=== PATIENT | female | born 1940 | race Caucasian/White ===

== ENCOUNTER 2016-10-09 13:07 | Inpatient (IN) | payer MEDICARE ==
[~2016-10-09] VITALS: Ht 152.4 cm; Wt 73.9 kg
--- NOTE | 2016-10-09 13:25 | ERPDOC ---
Departure Disposition Decision Date: Oct 09, 2016 Disposition Decision Time: 16:13 Disposition: 02 TO [facility] Impression Impression Impression: Primary Impression: UTI (urinary tract infection) Urinary tract infection type: acute cystitis Hematuria presence: without hematuria Qualified Codes: N30.00 - Acute cystitis without hematuria Severity: Moderate Condition: Stable Seen By: Physician only Problems/Meds/Labs Reviewed?: Yes Medications reviewed and manag: Yes Follow up care ordered?: Yes Mental Status: Alert, Oriented Scripts Aspirin *EC* (Aspirin EC) 81 Mg Tablet. 81 MG PO DAILY for 30 Days, #30 TAB Prov: LEELA ANDRADE V HAND COKE DRAWER 10/11/16 HPI - General Medical General Chief Complaint: Acute Medical Problem Stated Complaint: POSS STROKE Time Seen by Provider: 14:08 Source: patient Exam Limitations: clinical condition HPI - General Medical Initial Comments Patient is a 76-year-old female very poor historian. Patient brought to the ER by private vehicle. Patient original story was she fell 2 days ago and has been laying on the floor in her house scooting around since then. When asked again patient states that she fell twice yesterday and twice this morning was helped up by EMS and refused transport. Patient having difficulty walking so the maintenance been was called to put her in a wheelchair and fixture breakfast. Patient very unclear patient covered in feces and urine. Allergies: Coded Allergies: cephalexin (Verified Allergy, Unknown, RASH, 10/14/16) Past History Past Medical History Metabolic: hypothyroidism Neurological: CVA Psychological: anxiety, depression Surgical History Reproductive/: hysterectomy Social History Smoking Status: Never smoker Substance Use Type: does not use Alcohol Intake: none Review of Systems Constitutional Constitutional: weakness, DENIES: chills, dizziness, fever Eyes Vision: DENIES: double vision, loss of visual noguera ENMT Sinuses: DENIES: congestion, rhinorrhea Teeth: DENIES: pain Cardiovascular Cardiac: DENIES: chest pain, dyspnea on exertion Pulmonary Respiratory: DENIES: cough, dyspnea, sputum, tachypnea GI Upper Abdomen: DENIES: nausea, pain, vomiting Lower Abdomen: diarrhea, DENIES: constipation, pain General: DENIES: urgency Musculoskeletal General: DENIES: cramps, pain, weakness Integumentary Skin: DENIES: color change, itching, rash Endocrine Endocrine: DENIES: heat/cold intolerance Hematologic/Lymphatic Hematologic/Lymphatic: DENIES: anemia Physical Exam General General Nourishment: well nourished, well developed General Body Habitus: well groomed Vitals and Pain Weight: Kilograms: Height (feet): Height (inches): Triage Pain Scale: RN VS reviewed by Provider: Yes Eyes (brief) Eyes Brief: found: EOMI ENMT (brief) ENMT Brief: FOUND: mucosa moist, normal dentition, NOT FOUND: nasal erythema, pharnyx erythema, tonsillar deviation Neck (brief) Neck: NOT FOUND: adenopathy, spasm, tenderness Respiratory (brief) Respiratory: FOUND: clear all noguera, equal bilaterally, NOT FOUND: rales, wheezes Cardiovascular (brief) Cardiac: FOUND: regular rate, regular rhythm Capillary Refill: <2 sec Abdomen (brief) Abdominal Brief: FOUND: bowel normo active x4, soft, NOT FOUND: tender Lymphatic (brief) Lymphatic Brief: NOT FOUND: adenopathy Musculoskeletal (brief) Musculoskeletal Brief: NOT FOUND: spasm, tenderness Integumentary (brief) Integumentary Brief: FOUND: dry, pink, warm, NOT FOUND: rash Neurologic (brief) Neurological Brief: FOUND: CN w/o gross def to obs, motor-no gross deficits, sensory-no gross deficits Differential Diagnoses Considering: Acute AR, CVA, Hypo/Hyperglycemia, Hypo/Hyperkalemia, Hypo/ Hypernatremia, Medication Effect, Metabolic, Pneumonia, Poisoning/Accidental OD , Psychosis, Pulmonary Embolus, Seizure, TIA, UTI Progress Results/Orders Orders Procedure Category Date Status Time Iv Lock (Ed Only) EDM 10/09/16 Transmitted 13:42 Iv Lock (Ed Only) EDM 10/09/16 Transmitted 14:08 Cbc W/Auto LAB 10/09/16 Complete Diff-Reflex Manual 14:08 Cmp - Comprehensive LAB 10/09/16 Complete Metabolic 14:08 Troponin I W LAB 10/09/16 Complete Hemolysis Index 14:08 Probnp LAB 10/09/16 Complete 14:08 Ck - Cpk LAB 10/09/16 Complete 14:08 Normal Saline (Normal PHA 10/09/16 Complete Saline Iv) 14:15 Ct Head W/O Contrast CT 10/09/16 Resulted 14:35 UA, LAB 10/09/16 Complete Dip&Micro(Complete) & 14:48 Lactate - Lactic Acid LAB 10/09/16 Complete 15:03 Procalcitonin LAB 10/09/16 Complete 15:03 Blood Culture DERRICK 10/09/16 Complete 15:03 Lactate - Lactic Acid LAB 10/09/16 Complete 19:33 Ceftriaxone I.V. (Er PHA 10/09/16 Complete Use Only) (Rocephin 15:15 Urine Culture DERRICK 10/09/[address] 15:[address] In Facility: ED ADM 10/09/16 Transmitted 16:21 Lab Results Laboratory Tests Test 10/09/16 13:18 10/09/16 13:56 10/09/16 14:48 10/09/16 15:30 Glucometer 98mg/dL White Blood Count 18.6T/MM3 Red Blood Count 4.80M/MM3 Hemoglobin 14.9GM/DL Hematocrit 46.0% Mean Corpuscular Volume 95.8UM3 Mean Corpuscular Hemoglobin 31.0UUG Mean Corpuscular Hemoglobin Concent 32.4GM/DL RDW Standard Deviation 49.1FL Platelet Count 288T/MM3 Mean Platelet Volume 9.7UM3 Immature Granulocyte % (Auto) % Neutrophils (%) (Auto) % Lymphocytes (%) (Auto) % Monocytes (%) (Auto) % Eosinophils (%) (Auto) % Basophils (%) (Auto) % Absolute Immature Granulocyte (auto T/MM3 Absolute Neutrophils (auto) T/MM3 Absolute Lymphocytes (auto) T/MM3 Absolute Monocytes (auto) T/MM3 Absolute Eosinophils (auto) T/MM3 Absolute Basophils (auto) T/MM3 Neutrophils % (Manual) 74.0% Band Neutrophils % 3.0% Lymphocytes % (Manual) 13.0% Monocytes % (Manual) 8.0% Eosinophils % (Manual) 1.0% Basophils % (Manual) 1.0% Absolute Neutrophils (Manual) 13.8T/MM3 Band Neutrophils # 0.6T/MM3 Lymphocytes # (Manual) 2.4T/MM3 Monocytes # (Manual) 1.5T/MM3 Eosinophils # (Manual) 0.2T/MM3 Basophils # (Manual) 0.2T/MM3 Red Cell Morphology Comment Normal Turbidity < 20 Sodium Level 150MEQ/L Potassium Level 3.7MEQ/L Chloride Level 110MEQ/L Carbon Dioxide Level 23MEQ/L Anion Gap 17MEQ/L Blood Urea Nitrogen 49.0MG/DL Creatinine 1.3MG/DL Glomerular Filtration Rate Calc 40 BUN/Creatinine Ratio 38RATIO Glucose Level 108MG/DL Calculated Osmolality 302MOSM/KG Calcium Level 9.4MG/DL Total Bilirubin 1.00MG/DL Icterus Index < 2 Aspartate Amino Transf (AST/SGOT) 47U/L Alanine Aminotransferase (ALT/SGPT) 44U/L Alkaline Phosphatase 117U/L Total Creatine Kinase 613U/L Troponin I 0.012ng/ml SG-Btv-I-Type Natriuretic Peptide 939PG/ML Total Protein 8.0G/DL Albumin 4.3G/DL Globulin 3.7G/DL Albumin/Globulin Ratio 1.2RATIO Chemistry Specimen Hemolysis < 15 Urine Collection Type Voided-not cc-midstr Urine Color Yellow Urine Turbidity Cloudy Urine pH 5.0 Urine Specific [place] >=1.030 Urine Protein Trace Urine Glucose (UA) Negative Urine Ketones Trace Urine Blood Trace-intact Urine Nitrite Positive Urine Bilirubin Negative Urine Urobilinogen 1.0EU/DL Urine Leukocyte Esterase Negative Urine RBC 0-1/HPF Urine WBC 1-3/HPF Urine Squamous Epithelial Cells 20-50 Urine Amorphous Phosphates Many Urine Bacteria 2+ Urine Hyaline Casts 1-3/LPF Urine Culture Indicated Cult reflexed &setup Plasma Lactate 2.3MMOL/L Procalcitonin 0.05NG/ML Thyroid Stimulating Hormone (TSH) 16.10MIU/L Medications Current ED Medications Sodium Chloride 1,000 ml @ 999 mls/hr Q1H1M ONCE IV Last administered on 14:20; Start 10/09/16 at 14:15; Stop 10/09/16 at 15:15; Status DC Ceftriaxone Sodium/Sodium Chloride (Rocephin/NS) 100 ml @ 100 mls/hr O ONCE IV Last administered on 10/09/16 15:43; Start 10/09/16 at 15:15; Stop at 16:14; Status DC CT CT : CT: Head no contrast Interpretation: Abnormal, Reviewed Written Report (chronic changes shunt in place no acute findings) SHELDON BOURGEOIS MD Oct 09, 2016 13:25
[2016-10-09] MEDS ORDERED: NO ROUTINE MEDS (13:40)
[2016-10-09] MEDS ORDERED: IBUP-1724 PO (13:40)
--- NOTE | 2016-10-09 14:02 | NUR ---
DR DR BOURGEOIS AT BEDSIDE.
[2016-10-09] MEDS ORDERED: NORMAL SALINE 1,000 ML IV ONE (14:15)
[2016-10-09 14:21] LABS: HGB - HEMOGLOBIN 14.9 GM/DL (12-16); MEAN CORPUSCULAR HGB CONC(MCHC 32.4 GM/DL (31-37); MEAN CORPUSCULAR VOLUME 95.8 UM3 (80-100); MEAN PLATELET VOLUME 9.7 UM3 (9.4-12.4); WBC - WHITE BLOOD COUNT 18.6 T/MM3 (4.5-11.0)
[2016-10-09 14:31] LABS: ALBUMIN 4.3 G/DL (3.5-5.0); ALBUMIN/GLOBULIN RATIO 1.2 RATIO (1.1-2.2); ALKALINE PHOSPHATASE 117 U/L (38-126); ALT (SGPT) 44 U/L (9-52); ANION GAP 17 MEQ/L (5-15); AST (SGOT) 47 U/L (14-36); BUN/CREATININE RATIO 38 RATIO (6-26); CALCIUM 9.4 MG/DL (8.4-10.2); CHLORIDE 110 MEQ/L (98-107); CO2 - CARBON DIOXIDE 23 MEQ/L (22-30); CREATININE 1.3 MG/DL (0.7-1.2); GLOMERULAR FILTRATION RATE 40; GLUCOSE 108 MG/DL (65-110); POTASSIUM 3.7 MEQ/L (3.6-5); SODIUM 150 MEQ/L (134-144)
[2016-10-09 14:39] LABS: PROBNP 939 PG/ML (0-175)
[2016-10-09 14:44] LABS: BAND NEUTROPHILS # 0.6 T/MM3; BASOPHILS # (MANUAL) 0.2 T/MM3 (0-0.2); EOSINOPHILS # (MANUAL) 0.2 T/MM3 (0-0.5); LYMPHOCYTES # (MANUAL) 2.4 T/MM3 (1-4.8); MONOCYTES # (MANUAL) 1.5 T/MM3 (0-0.8); NEUTROPHILS #(MANUAL)-ABSOLUTE 13.8 T/MM3 (1.8-7.7); TOTAL CELLS COUNTED 100 %
--- NOTE | 2016-10-09 14:44 | NUR ---
CT PT TO CT VIA RNEY.
--- NOTE | 2016-10-09 14:52 | NUR ---
CT PT RETURNED.
[2016-10-09 14:56] LABS: BLOOD, URINE TRACE-INTACT (NEGATIVE); COLOR,URINE YELLOW (YELLOW); LEUKOCYTE ESTERASE ,URINE NEGATIVE (NEGATIVE); NITRITE,URINE POSITIVE (NEGATIVE)
--- NOTE | 2016-10-09 15:00 | NUR ---
SEPSIS DISCUSSED STATUS WITH DR BOURGEOIS. DR BOURGEOIS NOTED AT THIS TIME THE POSSIBILITY OF SEPSIS.
--- NOTE | 2016-10-09 15:00 | DI ---
Indication: ITS.REASON: 76-year-old female with multiple falls, question etiology PROCEDURE: CT HEAD W/O CONTRAST: Encounter: Initial Comparison: None Technique: Axial CT images through the head were performed without contrast. Iterative Reconstruction dose reducing technique was utilized. FINDINGS: The ventricles are of normal size, shape, and contour for the patient's age. There is a ventriculoperitoneal shunt entering through the left frontal region with the shunt catheter passing across the midline into the medial aspect of the right lateral ventricle, frontal horn. 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 There are scattered areas of low attenuation in the white matter which most likely represent changes from chronic microvascular ischemia. There is evidence of prior ischemic insult involving the left inferior cerebellar hemisphere. The visualized paranasal sinuses are clear. IMPRESSION: 1. Negative for acute intracranial process. 2. Ventricular shunt in place. 3. Evidence of prior right craniotomy. 4. Cerebral and cerebellar atrophy and chronic microvascular ischemia. .
[2016-10-09 15:03] LABS: SQUAMOUS EPITHELIAL CELL,UR 20-50
[2016-10-09 15:05] LABS: BACTERIA,URINE 2+ (NEGATIVE); RBC,URINE 0-1 /HPF (0-3)
--- NOTE | 2016-10-09 15:09 | NUR ---
VEHICLE SALES PROFESSIONAL IN ROOM FOR VENIPUNCTURE.
[2016-10-09] MEDS ORDERED: CEFTRIAXONE I.V. (ER USE ONLY) 1 G in NORMAL SALINE 100 ML IV ONE (15:15)
[2016-10-09 15:21] LABS: CK - CPK 613 U/L (30-135)
--- NOTE | 2016-10-09 16:30 | NUR ---
REPORT GIVEN TO [facility] RN MEDICAL UNIT.
--- NOTE | 2016-10-09 16:33 | NUR ---
STEVEN ANDRADE APRN AT BEDSIDE.
[2016-10-09 16:40] VITALS: PULSE 78; RESP 18
--- NOTE | 2016-10-09 16:40 | NUR ---
Admit Pt transferred at this time to bed X2 assistance and slide board. VS stable on RA. Pt denies pain and nausea at this time. Side rails up X2, call light within reach, bed alarm on. Will continue to monitor.
--- NOTE | 2016-10-09 16:40 | NUR ---
ADMIT PT TRANSFERRED TO MEDICAL UNIT VIA GURNEY. PERSONAL BELONGINGS ACCOMPANY.
[2016-10-09 16:48] VITALS: BP 154/75; PULSE 78; RESP 18; TEMP 98.4; O2SAT 92
[2016-10-09 16:51] VITALS: Ht 152.4 cm; Wt 73.9 kg
--- NOTE | 2016-10-09 16:58 | HPPDOC ---
LEELA ANDRADE V LADLE LINER 10/09/16 1644: HPI - Adult Date DATE: 10/09/16 TIME: 16:39 General Chief Complaint: UTI, leukocytosis, sepsis History of Present Illness Patient is a 76-year-old female who currently resides independently in the housing facility in [place], [place]. Patient is a very poor historian and multiple stories given while in the emergency room. However, patient reports that she fell 4 times yesterday. She also reports that EMS came and helped assist her up. However, she continued to have significant weakness. Today she was crawling around on the floor and finally EMS was called and transported patient to [facility] emergency room for further evaluation and treatment. She was found have an elevated white count at 18.6, hemoglobin 14.9, hematocrit 46, pleuritic count 288, neutrophils 74%. Sodium was found to be elevated at 150, potassium 3.7, BUN 49, creatinine 1.3, glucose 108, Weight osmology 302. AST is slightly elevated at 47, CK elevated at 613. Troponin was - 0.012, proBNP 939. Venous lactate was found to be elevated at 2.3, pro calcitonin 0.05. A urinalysis is obtained showing trace ketones, trace blood, positive nitrates with 2+ bacteria. A CT scan of the brain was of pain showing no acute intracranial process. However, history of ventricular shunt with evidence of prior right craniotomy. Given leukocytosis, UTI and weakness. The hospitalist services were contacted and accepted patient for outpatient measurement further evaluation and treatment. Harper is seen on initial examination. She is alert however is a very poor historian. She verifies that she has not seen a medical provider in "years". Past Medical History Past Medical History "Brain aneurysm"- Ventricular shunt present on CT Hypertension Hypothyroidism Patient verbalizes that she has not seen a doctor in "years" and that she does not have any current health problems Surgical History Patient's Surgical History: Evidence of prior right craniotomy with ventricular shunt Current Medications Home Meds Reported Medications Ibuprofen (Ibuprofen) 200 Mg Tablet, 400 MG PO Q4H Y for PAIN 10/09/16 [No Routine Meds] No Conflict Check 10/09/16 Allergies: Coded Allergies: No Known Allergies (Unverified , 10/09/16) Family History Family History: unknown by chelsi Social History Smoking Status: Former smoker Substance Use Type: does not use Substance last used: prior to arrival Alcohol Intake: none Housing: house (independently in [place], [place]) Social History Comments No PCP Review of Systems Constitutional: REPORTS: weakness ENMT Mouth/Throat: DENIES: change in voice Pulmonary Respiratory: DENIES: cough GI Upper Abdomen: DENIES: pain Lower Abdomen: DENIES: blood in stool, constipation Musculoskeletal General: pain (abrasion to right elbow, ecchymosis to left side (yellow in color)) All Other Systems All Other Systems: Reviewed Physical Exam General General Nourishment: well nourished, well developed Vital Signs Vital Signs Date Time Temp Pulse Resp B/P Pulse Ox O2 Delivery O2 Flow Rate FiO2 10/09/16 15:30 68 14 156/76 93 Room Air 10/09/16 13:10 97.5 Height (Feet): 5 Height (Inches): 0 Eyes Brief: FOUND: EOMI ENMT Brief: FOUND: mucosa moist, normal dentition, NOT FOUND: pharnyx erythema Neck Brief: FOUND: midline, NOT FOUND: adenopathy, carotid bruits, tracheal deviation Respiratory Brief: FOUND: clear all noguera, equal bilaterally, NOT FOUND: wheezes Cardiovascular (brief) Cardiac Brief: FOUND: regular rate, regular rhythm, NOT FOUND: murmur, pedal edema Capillary Refill: <2 sec Abdomen (brief) Abdominal Brief: FOUND: BS normo active x4, soft, NOT FOUND: distended, tender Lymphatic (brief) Lymphatic Brief: NOT FOUND: adenopathy Musculoskeletal (brief) Musculoskeletal Brief: NOT FOUND: tenderness Integumentary (brief) Integumentary Brief: FOUND: dry, pink, warm Comments Poor nail care. Toenails are long and unkept Neurologic (brief) Neurological Brief: FOUND: cranial 2-12 intact Neurologic RN Documented GCS Eye Opening: (4)Spontaneous Verbal: (5)Oriented Motor: (6)Obeys Commands Total: Psychiatric (brief) FOUND: alert, attentive, normal affect, oriented Laboratory Laboratory Tests Test 10/09/16 13:18 10/09/16 13:56 10/09/16 14:48 10/09/16 15:30 Glucometer 98mg/dL White Blood Count 18.6T/MM3 Red Blood Count 4.80M/MM3 Hemoglobin 14.9GM/DL Hematocrit 46.0% Mean Corpuscular Volume 95.8UM3 Mean Corpuscular Hemoglobin 31.0UUG Mean Corpuscular Hemoglobin Concent 32.4GM/DL RDW Standard Deviation 49.1FL Platelet Count 288T/MM3 Mean Platelet Volume 9.7UM3 Immature Granulocyte % (Auto) % Neutrophils (%) (Auto) % Lymphocytes (%) (Auto) % Monocytes (%) (Auto) % Eosinophils (%) (Auto) % Basophils (%) (Auto) % Absolute Immature Granulocyte (auto T/MM3 Absolute Neutrophils (auto) T/MM3 Absolute Lymphocytes (auto) T/MM3 Absolute Monocytes (auto) T/MM3 Absolute Eosinophils (auto) T/MM3 Absolute Basophils (auto) T/MM3 Neutrophils % (Manual) 74.0% Band Neutrophils % 3.0% Lymphocytes % (Manual) 13.0% Monocytes % (Manual) 8.0% Eosinophils % (Manual) 1.0% Basophils % (Manual) 1.0% Absolute Neutrophils (Manual) 13.8T/MM3 Band Neutrophils # 0.6T/MM3 Lymphocytes # (Manual) 2.4T/MM3 Monocytes # (Manual) 1.5T/MM3 Eosinophils # (Manual) 0.2T/MM3 Basophils # (Manual) 0.2T/MM3 Red Cell Morphology Comment Normal Turbidity < 20 Sodium Level 150MEQ/L Potassium Level 3.7MEQ/L Chloride Level 110MEQ/L Carbon Dioxide Level 23MEQ/L Anion Gap 17MEQ/L Blood Urea Nitrogen 49.0MG/DL Creatinine 1.3MG/DL Glomerular Filtration Rate Calc 40 BUN/Creatinine Ratio 38RATIO Glucose Level 108MG/DL Calculated Osmolality 302MOSM/KG Calcium Level 9.4MG/DL Total Bilirubin 1.00MG/DL Icterus Index < 2 Aspartate Amino Transf (AST/SGOT) 47U/L Alanine Aminotransferase (ALT/SGPT) 44U/L Alkaline Phosphatase 117U/L Total Creatine Kinase 613U/L Troponin I 0.012ng/ml PE-Wpy-E-Type Natriuretic Peptide 939PG/ML Total Protein 8.0G/DL Albumin 4.3G/DL Globulin 3.7G/DL Albumin/Globulin Ratio 1.2RATIO Chemistry Specimen Hemolysis < 15 Urine Collection Type Voided-not cc-midstr Urine Color Yellow Urine Turbidity Cloudy Urine pH 5.0 Urine Specific [place] >=1.030 Urine Protein Trace Urine Glucose (UA) Negative Urine Ketones Trace Urine Blood Trace-intact Urine Nitrite Positive Urine Bilirubin Negative Urine Urobilinogen 1.0EU/DL Urine Leukocyte Esterase Negative Urine RBC 0-1/HPF Urine WBC 1-3/HPF Urine Squamous Epithelial Cells 20-50 Urine Amorphous Phosphates Many Urine Bacteria 2+ Urine Hyaline Casts 1-3/LPF Urine Culture Indicated Cult reflexed &setup Plasma Lactate 2.3MMOL/L Procalcitonin 0.05NG/ML Assessment & Plan Problems: (1) Sepsis Status: Acute (2) UTI (urinary tract infection) (3) Self-care deficit for hygiene (4) HTN (hypertension) (5) Ventricular shunt in place Status: Chronic (6) Hypothyroidism Status: Acute Plan/Intensity of Service Admit patient to inpatient status given that patient meets criteria for sepsis with leukocytosis, UTI and elevated venous lactate. Patient was started on Rocephin while in the emergency room, will continue 1 gram IV daily. Blood cultures are pending. Change IV fluids to 1/2 normal saline at 100 ML per hour for ongoing hydration. Repeat venous lactate in 6 hours as recommended by sepsis protocol Monitor patient on cardiac telemetry Obtain TSH for laboratory completeness. Given patient's known history of hypothyroidism SCDs to bilateral lower extremity for DVT prophylaxis She may be up in room with assistance only Consult placed to case management. Given significant self-care deficit. Concerned that patient is residing independently. Will recheck CBC and BMP tomorrow morning to follow blood counts, renal function and electrolyte. Baseline creatinine is unknown as patient has never been to [facility] prior to this. DVT Prophylaxis: SCD'S Code Status Full Code, unverified Hospital Course Summary Disclaimer The hospital course summary below is not to be considered part of the above Progress Note. Hospital Course Summary 10/09/16 Admit patient to inpatient status given that patient meets criteria for sepsis with leukocytosis, UTI and elevated venous lactate. Patient was started on Rocephin while in the emergency room, will continue 1 gram IV daily. Blood cultures are pending. Change IV fluids to 1/2 normal saline at 100 ML per hour for ongoing hydration. Repeat venous lactate in 6 hours as recommended by sepsis protocol Monitor patient on cardiac telemetry Obtain TSH for laboratory completeness. Given patient's known history of hypothyroidism SCDs to bilateral lower extremity for DVT prophylaxis She may be up in room with assistance only Consult placed to case management. Given significant self-care deficit. Concerned that patient is residing independently. Will recheck CBC and BMP tomorrow morning to follow blood counts, renal function and electrolyte. Baseline creatinine is unknown as patient has never been to [facility] prior to this. COSMO PERRIN MD 10/09/16 2008: Past Medical History Current Medications Home Meds Reported Medications Ibuprofen (Ibuprofen) 200 Mg Tablet, 400 MG PO Q4H Y for PAIN 10/09/16 [No Routine Meds] No Conflict Check 10/09/16 Allergies: Coded Allergies: No Known Allergies (Unverified , 10/09/16) Sepsis Diagnostic Criteria Sepsis SIRS Criteria: Acute mental status chg, WBC >=12,000 or <=4,000 Severe Sepsis Lactate >=2.0 mg/dL Assessment & Plan Problems: (1) Sepsis Status: Acute Assessment & Plan: Severe sepsis based on lactic acid of 2.3; urine possible source although minimal pyuria (2) Dehydration Status: Acute (3) Hypernatremia Status: Acute (4) UTI (urinary tract infection) (5) Self-care deficit for hygiene (6) HTN (hypertension) (7) Hypothyroidism Status: Acute (8) History of intracranial hemorrhage (9) Ventricular shunt in place Status: Chronic (10) Ambulatory dysfunction Status: Acute Assessment & Plan: With falls Assessment I have independently evaluated and examined this patient. I reviewed the chart, the patient's history, and the LADLE LINER's documented findings as above. We discussed and formulated the assessment and plan as above with additions as below: Mrs. Wood continues to provide unclear timeline indicating that she's been on the floor in her apartment crawling around for 1-5 days and unable to obtain help until yesterday. She really can't offer an explanation as to why she was unable to get up or why she was on the floor. She was unable to obtain food or water while on the floor and apparently EMS was out on at least one occasion yesterday to get her up but she presumably fell again. A design maintenance engineer in the building was involved in identifying her situation and obtaining help yesterday and today. The patient indicates that she's had some recent urinary incontinence but denied dysuria or urinary frequency. She denied cough or sputum production and has not had influenza or other symptoms that made her believe she had an infection recently. She denies having had diarrhea, nausea, or vomiting that would've predisposed to dehydration. She denies head injury and goes on to tell me that this whole thing is simply crazy and that she just had no strength in her arms or legs and couldn't walk when she tried to yesterday. The patient has a past history of a cerebral aneurysm with bleed requiring placement of JUNIOR ART DIRECTOR shunt. On examination the patient is oriented to [facility] and is cooperative with testing. Cranial nerves are intact other than mild right ptosis, right pupil is 3 mm and left1.5 mm, pupils are round. Facial structures are otherwise symmetric. Pediatric Social Worker are 4/5 bilaterally, proximal upper extremity power 4-/5; patient is able to raise each leg off the bed independently but cannot hold them up against resistance and plantarflexion is graded 4/5 bilaterally. Sensation is intact 4 extremities. No tremors are present. Skin tents. The patient has a son (Claudio Wood) who lives in [place] who she would like to be her alternate decision-maker. She additionally voices strong opinions about end-of-life care indicating she does not want to be on a ventilator or have CPR or defibrillation. She reports that she's discussed this with her son and that he understands her wishes. She clearly requests that and allow natural /DO NOT RESUSCITATE order be written. Based on my discussion with the patient it's my opinion that she understands what she is telling me and is coherent enough to make this request. Laboratory data consistent with dehydration on admission with hyperosmolar hypernatremia and elevated BUN/creatinine. Additionally the patient has mild elevation in CPK consistent with recent falls. TSH is elevated with known history of past thyroid disease not currently being treated. There is leukocytosis with minor left shift, elevated lactic acid without elevation of procalcitonin, concentrated urine with minimal pyuria. CT of the head has been reviewed by myself demonstrating only encephalomalacia in the left cerebellar hemisphere, prior craniotomy, evidence of past coiling in the right suprasellar cistern, and JUNIOR ART DIRECTOR shunt. Although criteria for severe sepsis are present I am not convinced there is actually an underlying infectious etiology causing presentation. The patient has no respiratory symptoms and urinary symptoms are minimal-urine is not highly suggestive of infection. Continue current antibiotics pending urine culture. Sepsis markers potentially explained by stress and dehydration. Replace thyroid hormone. PT/OT. Check B-12. We'll need supplemental history to confirm absence of alcohol use. Continue hydration. DO NOT RESUSCITATE written in accordance with patient wishes. Plan/Intensity of Service Discussed with Dr. Lam, CT reviewed by myself, laboratory data reviewed. DO NOT RESUSCITATE order written after discussion with patient. LEELA ANDRADE APRN Oct 09, 2016 16:44 COSMO PERRIN MD Oct 09, 2016 20:08 COSMO PERRIN MD Oct 09, 2016 20:08
[2016-10-09] MEDS: 1/2 NS 1,000 ML IV SCH (17:09)
[2016-10-09 21:35] VITALS: PULSE 58; RESP 18; O2SAT 60
[2016-10-09 21:47] VITALS: PULSE 84; RESP 20
[2016-10-10] VITALS: BP 124/65; PULSE 63; RESP 16; TEMP 97.6; O2SAT 94
[2016-10-10] MEDS: 1/2 NS 1,000 ML IV SCH ×2 (03:43→14:52)
[2016-10-10 05:14] LABS: BASOPHILS # (AUTO) 0.1 T/MM3 (0-0.2); BASOPHILS % (AUTO) 0.7 % (0-2); EOSINOPHILS # (AUTO) 0.9 T/MM3 (0-0.5); EOSINOPHILS % (AUTO) 6.2 % (0-4); HCT - HEMATOCRIT 41.1 % (36-46); HGB - HEMOGLOBIN 13.2 GM/DL (12-16); IMMATURE GRANULOCYTE # (AUTO) 0.05 T/MM3 (0.00-0.03); IMMATURE GRANULOCYTE % (AUTO) 0.4 % (0.0-0.5); LYMPHOCYTES % (AUTO) 21.6 % (23-45); MEAN CORPUSCULAR HGB 31.3 UUG (26-34); MEAN CORPUSCULAR HGB CONC(MCHC 32.1 GM/DL (31-37); MEAN CORPUSCULAR VOLUME 97.4 UM3 (80-100); MEAN PLATELET VOLUME 9.4 UM3 (9.4-12.4); MONOCYTES # (AUTO) 1.1 T/MM3 (0-0.8); MONOCYTES % (AUTO) 8.3 % (0-9.0); NEUTROPHILS #(AUTO)-ABSOLUTE 8.7 T/MM3 (1.8-7.7); NEUTROPHILS % (AUTO) 62.8 % (33-66); RED BLOOD COUNT 4.22 M/MM3 (4.00-5.20); WBC - WHITE BLOOD COUNT 13.8 T/MM3 (4.5-11.0)
[2016-10-10 05:23] LABS: ALBUMIN 3.2 G/DL (3.5-5.0); ANION GAP 9 MEQ/L (5-15); BUN/CREATININE RATIO 39 RATIO (6-26); C-REACTIVE PROTEIN 61.7 MG/L (0-9); CALCIUM 8.2 MG/DL (8.4-10.2); CHLORIDE 112 MEQ/L (98-107); CO2 - CARBON DIOXIDE 25 MEQ/L (22-30); CREATININE 0.9 MG/DL (0.7-1.2); GLOMERULAR FILTRATION RATE 61; GLUCOSE 93 MG/DL (65-110); MAGNESIUM 2.2 MG/DL (1.6-2.3); POTASSIUM 3.4 MEQ/L (3.6-5); SODIUM 146 MEQ/L (134-144)
[2016-10-10 05:39] LABS: PHOSPHORUS 3.3 MG/DL (2.5-4.5)
[2016-10-10] MEDS: LEVOTHYROXINE 50 MCG TABLET PO SCH (06:05)
--- NOTE | 2016-10-10 06:26 | NUR ---
SUMMARY PT IS ALERT AND ORIENTED. DENIED ANY PAIN THIS SHIFT. INCONTINENT OF B&B. REPOSITIONED BY STAFFS. PT EDUCATED ABOUT THE USE OF CALL LIGHT AND SAFETY. ON FLUIDS THAT SHE IS TOLERATING WELL. TAKES PILLS WITHOUT ANY DISCOMFORT. PT NOT HAPPY THAT THE STAFF KEEP WAKING HER UP TO CLEAN HER. PT BOTTOM AND TASHI AREA RED. BARRIER CREAM APPLIED. PT EDUCATED THE NEED FOR CLEAN UP AND BARRIER CREAM.
[2016-10-10 07:47] VITALS: BP 137/63; PULSE 65; RESP 16; TEMP 98; O2SAT 95
[2016-10-10 08:00] VITALS: PULSE 70; RESP 2
--- NOTE | 2016-10-10 11:11 | NUR ---
CM THIS WORKER MET WITH PT IN ROOM, PT IN CHAIR WATCHING TV. THIS WORKER INTRODUCED SELF AND ROLE OF CASE MANAGEMENT. PT STATED SHE HAS A SON, KENTON, WHO LIVES IN [place]. HER GRANDCHILDREN LIVE IN [place] AND HAS A SON WHO LIVES "CLOSE BY", BUT HASN'T HAD CONTACT WITH IN YEARS. PT STATED SHE HAS A FRIEND, EMMA, IN [place] WHO VISITS HER. PT REPORTED SHE HAS A CANE, WHICH HELPS HER GET AROUND AND EXPRESSED SHE "DOESN'T NEED HELP, JUST NEEDS TO BE ABLE TO TOUCH 'SOMETHING' TO GET BY". PT REPORTED SHE HASN'T BEEN TO A DOCTOR IN OVER 6 YEARS, SINCE HER IN 2010. PT STATED "I DON'T NEED A DOCTOR, I TAKE CARE OF MYSELF". PT STATED SHE WOULD LIKE HER SON, KENTON, TO BE HER DPOA. THIS PT WAS GIVEN WORKER'S CONTACT INFORMATION AND STATED SHE WOULD BE IN CONTACT TO ASSIST WITH DPOA PAPERWORK. Addendum: 10/10/16 at 1131 by CALI ADAMES Amended: Links added.
--- NOTE | 2016-10-10 11:49 | NUR ---
YANCY THIS WORKER REVIEWED STUDENT CHARTING BY CALI NORTON ON THIS DATE. INFORMATION IS ACCURATE TO THE BEST OF MY KNOWLEDGE.
--- NOTE | 2016-10-10 15:08 | NUR ---
CM THIS WORKER MET WITH PT ON THIS DATE. ALSO PRESENT WAS STUDENT, CALI. PT HAD A FRIEND, EMMA PRESENT WITH HER AT THIS TIME. THIS WORKER REVIEWED ADVANCE DIRECTIVES WITH PT. THIS WORKER ALSO DISCUSSED DISCHARGE PLANNING. INFORMATION PROVIDED ON IRU VS SKILLED VS HOME. 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 DISCUSSION REGARDING IRU. PT REPORTED INTEREST IN IRU. THIS WORKER SPOKE TO IRU ON THIS DATE AND PUT AN A CONSULT FOR IRU SCREEN. THIS WORKER SPOKE TO PT ABOUT SUPPORT SYSTEMS IN PLACE. PT REPORTED THAT SHE HAD A FRIEND, EMMA THAT WAS HER SUPPORT SYSTEM. PT REPORTED THAT SHE WAS FEELING LIKE SHE WOULD LIKE TO "JUST MOVE ON." THIS WORKER INQUIRED FURTHER REGARDING THIS INFORMATION. PT DENIED SUICIDAL THOUGHTS OR ANY PLANS TO HARM SELF. PT REPORTED THAT SHE FEELS LIKE SHE WOULD BE OKAY TO NEVER WAKE UP. CONSENT WAS OBTAINED FROM PT TO CONTACT SON, KENTON. THIS WORKER SPOKE TO KENTON ON THE PHONE AND REPORTED THAT PT HAD REQUESTED DPOA AND WOULD LIKE TO ADD HIS NAME TO THAT. UPDATE PROVIDED TO SON ON THIS DATE. CASE MANAGEMENT WILL CONTINUE TO FOLLOW AND ASSIST IN DISCHARGE PLANNING.
--- NOTE | 2016-10-10 15:37 | PNPDOC ---
Subjective Date DATE: 10/10/16 TIME: 15:15 Subjective Mrs. Wood was seen late morning after working with physical therapy. She reports she was able to walk in the halls with assistance but that it was fatiguing. She denied dyspnea, nausea, heartburn, or difficulty urinating. She denied any lightheadedness while she was walking and reports having a good appetite. She feels like her left side isn't working very well and that she "pulls to the right". Occasional hypoxia noted overnight with isolated reading of 60% reported on one occasion. Objective Vital Signs Vital signs Vital Signs Date Time Temp Pulse Resp B/P Pulse Ox O2 Delivery O2 Flow Rate FiO2 10/10/16 07:47 98.0 65 16 137/63 95 Nasal Cannula 2.00 I/O 2218/incontinent weight up 1.4 kg EXAM General-NAD, alert, fluent speech HEENT-conjunctiva clear Lungs-respirations nonlabored, good airflow, breath sounds clear anteriorly and posteriorly Cardiac-regular rhythm, S1-S2 Abd-soft, nontender, normal bowel sounds Ext-without edema Neuro-portable power tool repairer equal 4/5, drift of the left upper extremity present, able to raise each leg off the bed independently with grossly symmetric power although weak bilaterally Psych-flat affect, talks about wanting to /ready to but indicates no intent to harm herself Height (Feet): 5 Height (Inches): 0 Weight (Kilograms): 72.400 Laboratory Laboratory Laboratory Tests 10/09/16 13:56 10/10/16 04:57 Laboratory Tests 10/09/16 13:56 10/10/16 04:57 CRP 61.7 B-12 pending Microbiology Microbiology Microbiology Date/Time Source Procedure Growth Status 10/09/16 15:24 Peripheral/Iv Start Blood Culture - Preliminary CULTURE INITIATED - RESULTS PENDING Resulted 10/09/16 15:13 Peripheral/Iv Start Blood Culture - Preliminary CULTURE INITIATED - RESULTS PENDING Resulted 10/09/16 15:08 Urine, Voided-Not Cc-Midstream Urine Culture - Preliminary Gram Positive Organism >100,000 Gram Negative Beck 10-50,000 Resulted Sepsis Diagnostic Criteria Sepsis SIRS Criteria: Acute mental status chg, WBC >=12,000 or <=4,000 Severe Sepsis Lactate >=2.0 mg/dL Assessment & Plan Problems: (1) Sepsis Status: Acute Assessment & Plan: Severe sepsis based on lactic acid of 2.3; urine possible source although minimal pyuria (2) Dehydration Status: Acute (3) Hypernatremia Status: Acute (4) UTI (urinary tract infection) (5) Self-care deficit for hygiene (6) HTN (hypertension) (7) Hypothyroidism Status: Acute (8) History of intracranial hemorrhage (9) 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 Assessment Mrs. Wood has evidence of left-sided weakness relative to right on examination and per PT eval. Being evaluated for IRU for further strengthening. Fatigues with ambulation, multiple recent falls. Will discuss further imaging for evaluation of acute stroke with the patient. Afebrile since admission, leukocytosis improving. Urine with mixed species- likely contamination. Continue antibiotics pending results tomorrow. Renal function improving with hydration, sodium slightly better, continue hypotonic fluids. Replace potassium orally. Thyroid supplementation initiated. Blood pressure control adequate without medication at present. Hypoxia noted on several occasions-overnight oximetry to be obtained. History tobacco use noted. Case management spoke with the patient's son who indicated she has had moderate depression since the of her , no indication of suicidal ideation or plan. Continue to monitor-may benefit from antidepressant however the patient indicates financial concerns and limited willingness to take medications consistently such that I'm reluctant to start multiple medications in short order. Unclear the patient will be able to return to prior living arrangement. Plan/Intensity of Service Laboratory data reviewed, discussed with case management and nursing. DVT Prophylaxis: SCD'S Code Status Do Not Resuscitate Hospital Course Summary Disclaimer The hospital course summary below is not to be considered part of the above Progress Note. Hospital Course Summary 10/09/16 Admit patient to inpatient status given that patient meets criteria for sepsis with leukocytosis, UTI and elevated venous lactate. Patient was started on Rocephin while in the emergency room, will continue 1 gram IV daily. Blood cultures are pending. Change IV fluids to 1/2 normal saline at 100 ML per hour for ongoing hydration. Repeat venous lactate in 6 hours as recommended by sepsis protocol Monitor patient on cardiac telemetry Obtain TSH for laboratory completeness. Given patient's known history of hypothyroidism SCDs to bilateral lower extremity for DVT prophylaxis She may be up in room with assistance only Consult placed to case management. Given significant self-care deficit. Concerned that patient is residing independently. Will recheck CBC and BMP tomorrow morning to follow blood counts, renal function and electrolyte. Baseline creatinine is unknown as patient has never been to [facility] prior to this. 10/10 Mrs. Wood has evidence of left-sided weakness relative to right on examination and per PT eval. Being evaluated for IRU for further strengthening. Fatigues with ambulation, multiple recent falls. Will discuss further imaging for evaluation of acute stroke with the patient. Afebrile since admission, leukocytosis improving. Urine with mixed species- likely contamination. Continue antibiotics pending results tomorrow. Renal function improving with hydration, sodium slightly better, continue hypotonic fluids. Replace potassium orally. Thyroid supplementation initiated. Blood pressure control adequate without medication at present. Hypoxia noted on several occasions-overnight oximetry to be obtained. History tobacco use noted. Case management spoke with the patient's son who indicated she has had moderate depression since the of her , no indication of suicidal ideation or plan. Continue to monitor-may benefit from antidepressant however the patient indicates financial concerns and limited willingness to take medications consistently such that I'm reluctant to start multiple medications in short order. Unclear the patient will be able to return to prior living arrangement. COSMO PERRIN MD Oct 10, 2016 15:36 been to [facility] prior to this. COSMO PERRIN MD Oct 10, 2016 15:36
--- NOTE | 2016-10-10 15:38 | NUR ---
IRU referral received. I met with patient and reviewed expectations of IRU program. Patient acknowledged the expectation of participating in at least 3 hours of therapy, 5 days/week and patient stated she is willing to work hard in order to return home. She stated clearly that she does not want to go to a half-way. She acknowledged that she is currently not functioning well enough to be able to return home. Informed patient that I will comunicate with CM and will assess status on 10/11. Notified CM. Will review case with Dr. Amaya to determine if patient meets criteria and will communicate back to CM at that time.
[2016-10-10 15:58] VITALS: BP 131/72; PULSE 82; RESP 18; TEMP 97.5; O2SAT 88
[2016-10-10] MEDS ORDERED: POTASSIUM CHLORIDE 20 MEQ TABLET PO ONE (16:15)
--- NOTE | 2016-10-10 18:30 | NUR ---
END OF SHIFT SUMMARY: Alert and orientated. Likes to visits and jokes around with staff. Sometimes makes negative comments about "not caring about herself" and "hoping she will ". However, by afternoon, negative comments have lessened. Ambulated with Physical Therapy this morning; leans to the left. IV fluids and IV Antibiotics continue. Tolerates food and fluid well. Assisted to bathroom. O2 at 2/L per NC. No cough or sniffles. Denies pain.
[2016-10-10] MEDS: CEFTRIAXONE 1 G in NORMAL SALINE 100 ML IV SCH (19:20)
[2016-10-10 23:37] VITALS: BP 145/76; PULSE 72; RESP 18; TEMP 98; O2SAT 87
[2016-10-11 00:27] VITALS: O2SAT 92
[2016-10-11] MEDS: 1/2 NS 1,000 ML IV SCH (02:26)
--- NOTE | 2016-10-11 04:50 | NUR ---
summary this nurse assumed care at 2300. room air at shift change, but O2 drops at night, overnight oximetry patient was placed on 2l nc initially, then required 3.5L to maintain O2 greater than 90%. denies pain, n/v. up x2 to bathroom. left sided weakness present, making ambulation difficult. incontinent at times. no new concerns.
[2016-10-11 05:22] LABS: BASOPHILS # (AUTO) 0.1 T/MM3 (0-0.2); BASOPHILS % (AUTO) 0.5 % (0-2); EOSINOPHILS # (AUTO) 0.8 T/MM3 (0-0.5); EOSINOPHILS % (AUTO) 5.8 % (0-4); HCT - HEMATOCRIT 38.2 % (36-46); HGB - HEMOGLOBIN 12.2 GM/DL (12-16); IMMATURE GRANULOCYTE # (AUTO) 0.03 T/MM3 (0.00-0.03); IMMATURE GRANULOCYTE % (AUTO) 0.2 % (0.0-0.5); LYMPHOCYTES # (AUTO) 2.6 T/MM3 (1-4.8); LYMPHOCYTES % (AUTO) 20.1 % (23-45); MEAN CORPUSCULAR HGB 31.2 UUG (26-34); MEAN CORPUSCULAR HGB CONC(MCHC 31.9 GM/DL (31-37); MEAN CORPUSCULAR VOLUME 97.7 UM3 (80-100); MEAN PLATELET VOLUME 9.8 UM3 (9.4-12.4); MONOCYTES # (AUTO) 1.3 T/MM3 (0-0.8); MONOCYTES % (AUTO) 9.6 % (0-9.0); NEUTROPHILS #(AUTO)-ABSOLUTE 8.4 T/MM3 (1.8-7.7); NEUTROPHILS % (AUTO) 63.8 % (33-66); RED BLOOD COUNT 3.91 M/MM3 (4.00-5.20); WBC - WHITE BLOOD COUNT 13.1 T/MM3 (4.5-11.0)
[2016-10-11 05:28] LABS: ANION GAP 7 MEQ/L (5-15); BUN/CREATININE RATIO 34 RATIO (6-26); CALCIUM 8.2 MG/DL (8.4-10.2); CHLORIDE 112 MEQ/L (98-107); CO2 - CARBON DIOXIDE 23 MEQ/L (22-30); CREATININE 0.7 MG/DL (0.7-1.2); GLOMERULAR FILTRATION RATE 81; GLUCOSE 97 MG/DL (65-110); POTASSIUM 3.4 MEQ/L (3.6-5); SODIUM 142 MEQ/L (134-144)
[2016-10-11] MEDS: LEVOTHYROXINE 50 MCG TABLET PO SCH (05:41)
[2016-10-11 07:23] VITALS: BP 146/56; PULSE 61; RESP 18; TEMP 97.8; O2SAT 87
[2016-10-11 07:24] VITALS: O2SAT 91
[2016-10-11 08:00] VITALS: RESP 18
[2016-10-11] MEDS ORDERED: POTASSIUM CHLORIDE 20 MEQ TABLET PO SCH (08:00)
[2016-10-11] MEDS ORDERED: ASPIRIN *EC* 81mg TABLET PO SCH (09:00)
[2016-10-11] MEDS: CEFTRIAXONE 1 G in NORMAL SALINE 100 ML IV SCH (09:21)
--- NOTE | 2016-10-11 10:00 | NUR ---
shift status INocnt of urine foul smelling. up with assist of 2 drags her L foot some. appeitie is fair. co of some L leg pain.
--- NOTE | 2016-10-11 10:12 | NUR ---
Dr. Amaya accepted patient for IRU. YANCY Elise, notified. Will coordinate admission to IRU with nursing.
[2016-10-11] MEDS ORDERED: POTA20TA10 PO (10:35)
[2016-10-11] MEDS ORDERED: ASPI-1085 PO (10:35)
[2016-10-11] MEDS ORDERED: LEVO50TA4 PO (10:35)
[2016-10-11] MEDS ORDERED: CEPH-583 PO (10:35)
--- NOTE | 2016-10-11 10:39 | DSPDOC ---
General Date Date DATE: 10/11/16 TIME: 10:31 Attending Physician Juliana Taylor DO Admitting Physician Shanna June MD Consulting Physician Admitting Diagnosis severe sepsis, dehydration with hypernatremia, altered mental status Discharge Diagnosis UTI Hypothyroidism History of intracranial hemorrhage histor of JEWELRY DEPARTMENT SUPERVISOR shunt placement Laboratory Laboratory Tests Test 10/10/16 04:57 10/11/16 04:08 White Blood Count 13.8T/MM3 (4.5-11.0) 13.1T/MM3 (4.5-11.0) Red Blood Count 4.22M/MM3 (4.00-5.20) 3.91M/MM3 (4.00-5.20) Hemoglobin 13.2GM/DL (12-16) 12.2GM/DL (12-16) Hematocrit 41.1% (36-46) 38.2% (36-46) Mean Corpuscular Volume 97.4UM3 (80-100) 97.7UM3 (80-100) Mean Corpuscular Hemoglobin 31.3UUG (26-34) 31.2UUG (26-34) Mean Corpuscular Hemoglobin Concent 32.1GM/DL (31-37) 31.9GM/DL (31-37) RDW Standard Deviation 49.7FL (36.9-50.2) 50.1FL (36.9-50.2) Platelet Count 250T/MM3 (130-400) 241T/MM3 (130-400) Mean Platelet Volume 9.4UM3 (9.4-12.4) 9.8UM3 (9.4-12.4) Immature Granulocyte % (Auto) 0.4% (0.0-0.5) 0.2% (0.0-0.5) Neutrophils (%) (Auto) 62.8% (33-66) 63.8% (33-66) Lymphocytes (%) (Auto) 21.6% (23-45) 20.1% (23-45) Monocytes (%) (Auto) 8.3% (0-9.0) 9.6% (0-9.0) Eosinophils (%) (Auto) 6.2% (0-4) 5.8% (0-4) Basophils (%) (Auto) 0.7% (0-2) 0.5% (0-2) Absolute Immature Granulocyte (auto 0.05T/MM3 (0.00-0.03) 0.03T/MM3 (0.00-0.03) Absolute Neutrophils (auto) 8.7T/MM3 (1.8-7.7) 8.4T/MM3 (1.8-7.7) Absolute Lymphocytes (auto) 3.0T/MM3 (1-4.8) 2.6T/MM3 (1-4.8) Absolute Monocytes (auto) 1.1T/MM3 (0-0.8) 1.3T/MM3 (0-0.8) Absolute Eosinophils (auto) 0.9T/MM3 (0-0.5) 0.8T/MM3 (0-0.5) Absolute Basophils (auto) 0.1T/MM3 (0-0.2) 0.1T/MM3 (0-0.2) Turbidity < 20 (0-20) < 20 (0-20) Sodium Level 146MEQ/L (134-144) 142MEQ/L (134-144) Potassium Level 3.4MEQ/L (3.6-5) 3.4MEQ/L (3.6-5) Chloride Level 112MEQ/L (98-107) 112MEQ/L (98-107) Carbon Dioxide Level 25MEQ/L (22-30) 23MEQ/L (22-30) Anion Gap 9MEQ/L (5-15) 7MEQ/L (5-15) Blood Urea Nitrogen 35.0MG/DL (7-17) 24.0MG/DL (7-17) Creatinine 0.9MG/DL (0.7-1.2) 0.7MG/DL (0.7-1.2) Glomerular Filtration Rate Calc 61 81 BUN/Creatinine Ratio 39RATIO (6-26) 34RATIO (6-26) Glucose Level 93MG/DL (65-110) 97MG/DL (65-110) Calculated Osmolality 289MOSM/KG (261-280) 277MOSM/KG (261-280) Calcium Level 8.2MG/DL (8.4-10.2) 8.2MG/DL (8.4-10.2) Phosphorus Level 3.3MG/DL (2.5-4.5) Magnesium Level 2.2MG/DL (1.6-2.3) Icterus Index < 2 (0-7) < 2 (0-7) C-Reactive Protein 61.7MG/L (0-9) Albumin 3.2G/DL (3.5-5.0) Vitamin B12 Level 318PG/ML (239-931) Chemistry Specimen Hemolysis < 15 (0-25) < 15 (0-25) Microbiology Microbiology Date/Time Source Procedure Growth Status 10/09/16 15:24 Peripheral/Iv Start Blood Culture - Preliminary NO GROWTH AFTER 24 HOURS Resulted 10/09/16 15:13 Peripheral/Iv Start Blood Culture - Preliminary NO GROWTH AFTER 24 HOURS Resulted 10/09/16 15:08 Urine, Voided-Not Cc-Midstream Urine Culture - Final Mixed Tramaine Complete Radiology CT Brain IMPRESSION: 1. Negative for acute intracranial process. 2. Ventricular shunt in place. 3. Evidence of prior right craniotomy. 4. Cerebral and cerebellar atrophy and chronic microvascular ischemia. History of Present Illness Patient is a 76-year-old female who currently resides independently in the housing facility in [place], [place]. Patient is a very poor historian and multiple stories given while in the emergency room. However, patient reports that she fell 4 times yesterday. She also reports that EMS came and helped assist her up. However, she continued to have significant weakness. Today she was crawling around on the floor and finally EMS was called and transported patient to [facility] emergency room for further evaluation and treatment. She was found have an elevated white count at 18.6, hemoglobin 14.9, hematocrit 46, pleuritic count 288, neutrophils 74%. Sodium was found to be elevated at 150, potassium 3.7, BUN 49, creatinine 1.3, glucose 108, Weight osmology 302. AST is slightly elevated at 47, CK elevated at 613. Troponin was - 0.012, proBNP 939. Venous lactate was found to be elevated at 2.3, pro calcitonin 0.05. A urinalysis is obtained showing trace ketones, trace blood, positive nitrates with 2+ bacteria. A CT scan of the brain was of pain showing no acute intracranial process. However, history of ventricular shunt with evidence of prior right craniotomy. Given leukocytosis, UTI and weakness. The hospitalist services were contacted and accepted patient for outpatient measurement further evaluation and treatment. Harper is seen on initial examination. She is alert however is a very poor historian. She verifies that she has not seen a medical provider in "years". Hospital Course 10/09/16 Admit patient to inpatient status given that patient meets criteria for sepsis with leukocytosis, UTI and elevated venous lactate. Patient was started on Rocephin while in the emergency room, will continue 1 gram IV daily. Blood cultures are pending. Change IV fluids to 1/2 normal saline at 100 ML per hour for ongoing hydration. Repeat venous lactate in 6 hours as recommended by sepsis protocol Monitor patient on cardiac telemetry Obtain TSH for laboratory completeness. Given patient's known history of hypothyroidism SCDs to bilateral lower extremity for DVT prophylaxis She may be up in room with assistance only Consult placed to case management. Given significant self-care deficit. Concerned that patient is residing independently. Will recheck CBC and BMP tomorrow morning to follow blood counts, renal function and electrolyte. Baseline creatinine is unknown as patient has never been to [facility] prior to this. 10/10 Mrs. Wood has evidence of left-sided weakness relative to right on examination and per PT eval. Being evaluated for IRU for further strengthening. Fatigues with ambulation, multiple recent falls. Will discuss further imaging for evaluation of acute stroke with the patient. Afebrile since admission, leukocytosis improving. Urine with mixed species- likely contamination. Continue antibiotics pending results tomorrow. Renal function improving with hydration, sodium slightly better, continue hypotonic fluids. Replace potassium orally. Thyroid supplementation initiated. Blood pressure control adequate without medication at present. Hypoxia noted on several occasions-overnight oximetry to be obtained. History tobacco use noted. Case management spoke with the patient's son who indicated she has had moderate depression since the of her , no indication of suicidal ideation or plan. Continue to monitor-may benefit from antidepressant however the patient indicates financial concerns and limited willingness to take medications consistently such that I'm reluctant to start multiple medications in short order. Unclear the patient will be able to return to prior living arrangement. 10/11/16 Will continue keflex for total of 5 antibiotic days - urine culture with mixed tramaine. Needs oxygen at night - initiated. Continue thyroid supplementation. Re-visited possible MRI of brain. Discussed possible JEWELRY DEPARTMENT SUPERVISOR shunt complications. There are no abnormalities on CT scan to suggest ventriculomegaly, therefore, at this time patient would simply like to proceed with rehab and re-visit this is her rehab course is not successful. Her neurosurgeon is Dr. Cochran from [facility]. To d/c to inpatient rehab today. 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 Code Status Do Not Resuscitate Home Meds Reported Medications Ibuprofen (Ibuprofen) 200 Mg Tablet, 400 MG PO Q4H Y for PAIN 10/09/16 [No Routine Meds] No Conflict Check 10/09/16 Face to Face Encounter I met with patient on the day of dismissal and discussed follow up appointments , medications, and safety plan. Discharge Disposition Inpatient rehab. JULIANA Jang DO (HOSPITALIST) Oct 11, 2016 10:35
--- NOTE | 2016-10-11 13:54 | NUR ---
CM THIS WORKER RECEIVED CALL FROM ROGER THAT PT WAS ACCEPTED TO IRU. UPDATE WITH PHYSICIAN ON THIS DATE. UPDATE GIVEN TO SON, KENTON. KENTON REPORTED THAT HE IS ON HIS WAY FROM [place] TO VISIT PT. PLAN FOR PT TO TRANSITION TO IRU ON THIS DATE.
--- NOTE | 2016-10-11 14:00 | NUR ---
transferred to iru per wheelchair. with belongings.
== END 2016-10-11 14:28 | DRG 872 ==
LOC: ED 13:07 → EDHOLD 16:22 → MED 16:39 → OBSVTOIN 16:50
PROVIDERS: ADMIT Internal Medicine; ATTEND Internal Medicine
DX: A41.9 Sepsis, unspecified organism (principal); N30.00 Acute cystitis without hematuria; E87.0 Hyperosmolality and hypernatremia; I69.954 Hemiplegia and hemiparesis following unspecified cerebrovascular disease affecting left non-dominant side; R65.20 Severe sepsis without septic shock; Z66 Do not resuscitate; E86.0 Dehydration; E03.9 Hypothyroidism, unspecified; I10 Essential (primary) hypertension; E87.6 Hypokalemia; R29.6 Repeated falls; R09.02 Hypoxemia; Z98.2 Presence of cerebrospinal fluid drainage device; Z79.899 Other long term (current) drug therapy
CPT/HCPCS: 36415; 80048; 80053; 80069; 81001; 82550; 82607; 82948; 83605; 83735; 83880; 84145; 84443; 84484; 85025; 86140; 87040; 87086; 94762; 96360

== ENCOUNTER 2016-10-11 14:10 | Inpatient (IN) | payer MEDICARE ==
[~2016-10-11] VITALS: Ht 154.9 cm; Wt 73.3 kg
[~2016-10-11 14:10] MED LIST: ASPI-1085 PO; CEPH-583 PO; IBUP-1724 PO; LEVO50TA4 PO; NO ROUTINE MEDS; POTA20TA10 PO
--- NOTE | 2016-10-11 14:10 | NUR ---
ADMISSION NOTE PATIENT ALERT AND ORIENTED X 3. PATIENT ARRIVED TO IRU 174 FROM [facility] JACKIE WC. VITALS TAKEN. ON 3 L O2 NC. PATIENT UP WITH ONE WITH WALKER. SKIN ASSESED, JAIR PINKY TOES MILD REDNESS. CALLEUS TO R FOOT. TOENAILS LONG, CURLED AND YELLOW. PATIENT DENIES PAIN. MEDS RECONCILED. WILL CONT TO MONITOR.
[2016-10-11 14:15] VITALS: RESP 20
--- OUTSIDE RECORDS SUMMARY | 2016-10-11 14:51 | XMS REPORT | Continuity of Care Document ---
Author Author [facility]EL [facility] Organization [facility] Address Unknown Phone Unavailable Support Name Relationship Address Phone SHANNA JUNE MD Caregiver [address] [place] [id number] Unavailable SHANNA JUNE MD Caregiver [address] [place] [address] Unavailable SHELDON BOURGEOIS MD Caregiver [address] [place] [address] [place] [id number] Unavailable EMMA AGARWAL Next Of Kin Unknown [phone] Insurance Providers Guarantor Harper Wagner Address [address] [address] Email DENIED 10-09-16 Payer Medicare Part A Only Policy Number [id number] Subscriber's Name Harper Wagner Relationship 18 Self Advance Directives Directive Response Recorded Date/Time Advanced Directives Type None 10/09/16 1:10pm Ordered Resuscitation Status Do Not Resuscitate 10/09/16 8:34pm Resuscitation Documents on File No 10/09/16 4:52pm DPOA for Healthcare Only No 10/09/16 4:52pm Living Will No 10/09/16 4:52pm Problems Active Problems Medical Problem Onset Date Status Ambulatory dysfunction Unknown Acute Dehydration Unknown Acute HTN (hypertension) Unknown History of intracranial hemorrhage Unknown Resolved Hypernatremia Unknown Acute Hypokalemia Unknown Resolved Hypothyroidism Unknown Acute Hypoxia Unknown Intracranial hemorrhage Unknown Left hemiparesis Unknown Chronic Self-care deficit for hygiene Unknown Sepsis Unknown Acute UTI (urinary tract infection) Unknown Ventricular shunt in place Unknown Chronic Past Problems Medical Problem Onset Date UTI (urinary tract infection) Unknown Medications Current Home Medications Medication Dose Units Route Directions Days Qty Instructions Start Date Aspirin (Aspirin Ec) 81 Mg Tablet. 81 Mg Oral Daily 30 Days 30 Tablet 10/11/16 Cephalexin (Keflex) 500 Mg Capsule 500 Mg Oral Three Times A Day 3 Days 9 Capsule 10/11/16 Ibuprofen 200 Mg Tablet 400 Mg Oral Every 4 Hours as needed for Pain 10/09/16 Levothyroxine Sodium (Synthroid) 50 Mcg Tablet 50 Mcg Oral Before Breakfast 30 Days 30 Tablet 10/11/16 Potassium Chloride (Klor-Con M20) 20 Meq Tablet 20 Meq Oral Give With Breakfast 30 Days 30 Tablet 10/11/16 Past Home Medications Medication Directions Ordered Status No Routine Meds , 10/09/16 Discontinued Social History Social History Problem Response Recorded Date/Time Onset Date Status Reason for Hospitalization sepsis, hypernatremia, dehydration, urinary tract infection, self-care defi 10/11/2016 2:09pm Not Applicable Not Applicable Hx Alcohol Use No 10/09/2016 2:11pm Not Applicable Not Applicable Has the pt used tobacco in the last 12 months No 10/09/2016 4:54pm Not Applicable Not Applicable Query Response Start Date Stop Date Smoking Status Former smoker Hospital Discharge Instructions Instructions: Care Instructions: Reason for Hospitalization: sepsis, hypernatremia, dehydration, urinary tract infection, self-care defi I was in the hospital because (patient own words): couldn't stand up, couldn't walk, no strength Discharge Diet: Regular diet Discharge Activity: Activity as tolerated as per PT Follow Up Appointments: N/A Pending Lab / Results: No Pending Lab Patient Instructions: Patient to be admitted to IRU for ongoing strenghtening Continue with Keflex TID for 3 more days for treatment of UTI Oral potassium supplementation Wound/Incision Care: N/A Pain Management/Treatment: Tylenol or Ibuprofen as needed for pain Expected Signs/Symptoms: Continued improvement in strength and gait Notify Physician If: N/A During Business Hours:: N/A After Business Hours:: N/A Condition at time of discharge: Good Plan of Care Discharge Date 10/11/16 2:28pm Disposition [facility] TO [facility] Instructions/Education Provided Hyponatremia (GEN) Sepsis (GEN) Prescriptions See Medication Section Care Plan and Goals See Discharge Instructions Section Functional Status Query Response Date Recorded Mobility Status Ambulatory w/assist October 11, 2016 2:09pm Assistive Devices None October 11, 2016 2:09pm Activity Limitations Weakness October 11, 2016 2:09pm Feeding Ability Independent October 11, 2016 2:09pm Toileting Ability Assist October 09, 2016 6:21pm Grooming Ability Assist October 11, 2016 2:09pm Dressing Ability Assist October 11, 2016 2:09pm Driving Ability Dependent October 11, 2016 2:09pm Housework Ability Assist October 11, 2016 2:09pm Meal Preparation Ability Dependent October 11, 2016 2:09pm Stair Climbing Ability Assist October 11, 2016 2:09pm Ability to complete ADL's impeded by Impaired Mobility October 11, 2016 2:09pm Cognitive/Perceptual Impairments Impaired vision October 11, 2016 2:09pm Visual Assistive Devices Glasses October 09, 2016 6:21pm Preferred Method of Learning Hands on October 09, 2016 6:21pm Allergies, Adverse Reactions, Alerts No known allergies. Immunizations Query Response on File Recorded Date/Time Hx Influenza Vaccination No 10/09/16 4:54pm Hx Pneumococcal Vaccination No 10/09/16 4:54pm Hx Influenza Vaccination No 10/09/16 4:54pm Vital Signs Acute Vital Signs Vital Response Date/Time Temperature (Fahrenheit) 97.8 deg F (96.8 - 99.1) 10/11/2016 7:23am Temperature (Calculated Celsius) 36.34686 degrees C (36.0 - 37.3) 10/11/2016 7:23am Pulse Rate (adult) 61 bpm (60 - 100) 10/11/2016 7:23am Respiratory Rate 18 breaths/min (10 - 20) 10/11/2016 8:00am O2 Sat by Pulse Oximetry 91 % (90 - 100) 10/11/2016 7:24am Oxygen Delivery Method Nasal Cannula 10/11/2016 12:27am Oxygen Delivery Method Nasal Cannula 10/11/2016 7:24am Oxygen Flow Rate 2.00 L/min 10/11/2016 7:24am Blood Pressure 146/56 mm Hg 10/11/2016 7:23am Blood Pressure Source Automatic Cuff 10/11/2016 7:23am Height (Feet) 5 feet 10/10/2016 3:37pm Height (Inches) 0 inches 10/10/2016 3:37pm Weight (Kilograms) 73.900 kg 10/11/2016 7:26am Body Mass Index (BMI) 28.6 10/09/2016 4:51pm Results Laboratory Results Test Name Result Units Flags Reference Collection Date/Time Result Date/ Time Comments White Blood Count 13.1 T/MM3 H 4.5-11.0 10/11/2016 4:08am 10/11/2016 5: 22am Red Blood Count 3.91 M/MM3 L 4.00-5.20 10/11/2016 4:0810/11/2016 5: 22am Hemoglobin 12.2 GM/DL 12-16 10/11/2016 4:10/11/2016 5:22am Hematocrit 38.2 % 36-46 10/11/2016 4:0810/11/2016 5:22am Mean Corpuscular Volume 97.7 UM3 80-100 10/11/2016 4:0810/11/2016 5: 22am Mean Corpuscular Hemoglobin 31.2 UUG 26-34 10/11/2016 4:082016 5:22am Mean Corpuscular Hemoglobin Concent 31.9 GM/DL 31-37 10/11/2016 4:10/11/2016 5:22am RDW Standard Deviation 50.1 FL 36.9-50.2 10/11/2016 4:10/11/2016 5 :22am Platelet Count 241 T/MM3 130-400 10/11/2016 4:10/11/2016 5:22am Mean Platelet Volume 9.8 UM3 9.4-12.4 10/11/2016 4:10/11/2016 5: 22am Neutrophils (%) (Auto) 63.8 % 33-66 10/11/2016 4:10/11/2016 5: 22am Lymphocytes (%) (Auto) 20.1 % L 23-45 10/11/2016 4:10/11/2016 5: 22am Monocytes (%) (Auto) 9.6 % H 0-9.0 10/11/2016 4:10/11/2016 5:22am Eosinophils (%) (Auto) 5.8 % H 0-4 10/11/2016 4:10/11/2016 5:22am Basophils (%) (Auto) 0.5 % 0-2 10/11/2016 4:10/11/2016 5:22am Immature Granulocyte % (Auto) 0.2 % 0.0-0.5 10/11/2016 4:2016 5:22am Absolute Neutrophils (auto) 8.4 T/MM3 H 1.8-7.7 10/11/2016 4:2016 5:22am Absolute Lymphocytes (auto) 2.6 T/MM3 1-4.8 10/11/2016 4:08am 2016 5:22am Absolute Monocytes (auto) 1.3 T/MM3 H 0-0.8 10/11/2016 4:08am 2016 5:22am Absolute Eosinophils (auto) 0.8 T/MM3 H 0-0.5 10/11/2016 4:08am 2016 5:22am Absolute Basophils (auto) 0.1 T/MM3 0-0.2 10/11/2016 4:08am 10/11/2016 5:22am Absolute Immature Granulocyte (auto 0.03 T/MM3 0.00-0.03 10/11/2016 4: 08am 10/11/2016 5:22am Neutrophils % (Manual) 74.0 % H 33-66 10/09/2016 1:56pm 10/09/2016 2: 44pm Band Neutrophils % 3.0 % 0-6 10/09/2016 1:56pm 10/09/2016 2:44pm Lymphocytes % (Manual) 13.0 % L 23-45 10/09/2016 1:56pm 10/09/2016 2: 44pm Monocytes % (Manual) 8.0 % 0-9.0 10/09/2016 1:56pm 10/09/2016 2:44pm Eosinophils % (Manual) 1.0 % 0-4 10/09/2016 1:56pm 10/09/2016 2:44pm Basophils % (Manual) 1.0 % 0-2 10/09/2016 1:56pm 10/09/2016 2:44pm Band Neutrophils # 0.6 T/MM3 10/09/2016 1:56pm 10/09/2016 2:44pm Absolute Neutrophils (Manual) 13.8 T/MM3 H 1.8-7.7 10/09/2016 1:56pm 2:44pm Lymphocytes # (Manual) 2.4 T/MM3 1-4.8 10/09/2016 1:56pm 10/09/2016 2: 44pm Monocytes # (Manual) 1.5 T/MM3 H 0-0.8 10/09/2016 1:56pm 10/09/2016 2: 44pm Eosinophils # (Manual) 0.2 T/MM3 0-0.5 10/09/2016 1:56pm 10/09/2016 2: 44pm Basophils # (Manual) 0.2 T/MM3 0-0.2 10/09/2016 1:56pm 10/09/2016 2: 44pm Red Cell Morphology Comment NORMAL 10/09/2016 1:56pm 10/09/2016 2: 44pm Icterus Index < 2 0-7 10/11/2016 4:08am 10/11/2016 5:28am Chemistry Specimen Hemolysis < 15 0-25 10/11/2016 4:08am 10/11/2016 5 :28am 0-25: Specimen Exhibited No Hemolysis. Turbidity < 20 0-20 10/11/2016 4:08am 10/11/2016 5:28am Sodium Level 142 MEQ/L 134-144 10/11/2016 4:08am 10/11/2016 5:28am Potassium Level 3.4 MEQ/L L 3.6-5 10/11/2016 4:08am 10/11/2016 5:28am Chloride Level 112 MEQ/L H 98-107 10/11/2016 4:08am 10/11/2016 5:28am Carbon Dioxide Level 23 MEQ/L 22-30 10/11/2016 4:08am 10/11/2016 5: 28am Anion Gap 7 MEQ/L 5-15 10/11/2016 4:08am 10/11/2016 5:28am Blood Urea Nitrogen 24.0 MG/DL H 7-17 10/11/2016 4:08am 10/11/2016 5: 28am Creatinine 0.7 MG/DL D 0.7-1.2 10/11/2016 4:0810/11/2016 5:29am BUN/Creatinine Ratio 34 RATIO H 6-26 10/11/2016 4:08am 10/11/2016 5: 28am Glomerular Filtration Rate Calc 81 10/11/2016 4:08am 10/11/2016 5: 28am Glucose Level 97 MG/DL 65-110 10/11/2016 4:0810/11/2016 5:28am Calculated Osmolality 277 MOSM/KG 261-280 10/11/2016 4:0810/11/2016 5:28am Calcium Level 8.2 MG/DL L 8.4-10.2 10/11/2016 4:08am 10/11/2016 5:28am Phosphorus Level 3.3 MG/DL 2.5-4.5 10/10/2016 4:57am 10/10/2016 5:39am Total Bilirubin 1.00 MG/DL 0.20-1.30 10/09/2016 1:56pm 10/09/2016 2: 31pm Alkaline Phosphatase 117 U/L 38-126 10/09/2016 1:56pm 10/09/2016 2: 31pm Total Protein 8.0 G/DL 6.3-8.2 10/09/2016 1:56pm 10/09/2016 2:31pm Albumin 3.2 G/DL L 3.5-5.0 10/10/2016 4:57am 10/10/2016 5:23am Globulin 3.7 G/DL H 2.4-3.6 10/09/2016 1:56pm 10/09/2016 2:31pm Albumin/Globulin Ratio 1.2 RATIO 1.1-2.2 10/09/2016 1:56pm 10/09/2016 2 :31pm Aspartate Amino Transf (AST/SGOT) 47 U/L H 14-36 10/09/2016 1:56pm 10/09 2:31pm Alanine Aminotransferase (ALT/SGPT) 44 U/L 9-52 10/09/2016 1:56pm 10/09 2:31pm Total Creatine Kinase 613 U/L H 30-135 10/09/2016 1:56pm 10/09/2016 3: 21pm Troponin I 0.012 ng/ml 0-0.12 10/09/2016 1:56pm 10/09/2016 2:43pm Troponin values with a difference of 55% increase from orginal troponin value represent a true biological DELTA value. (%increase Calc=Orginal Troponin value, divided by subsequent Troponin value, multiplied by 100) C-Reactive Protein 61.7 MG/L H 0-9 10/10/2016 4:57am 10/10/2016 5:23am DG-Vuy-A-Type Natriuretic Peptide 939 PG/ML H 0-175 10/09/2016 1:56pm 2:39pm Rule in cut points: <50 years old=450; 50-75 years old=900; >75 years old=1800; When utilizing ProBNP rule-in cut points, adjustment for impaired renal function is typically not required. Magnesium Level 2.2 MG/DL 1.6-2.3 10/10/2016 4:57am 10/10/2016 5:23am Plasma Lactate 1.4 MMOL/L 0.6-2.2 10/09/2016 7:31pm 10/09/2016 7:46pm Procalcitonin 0.05 NG/ML 10/09/2016 3:30pm 10/09/2016 4:03pm PCT </= 0.5 ng/mL - sepsis not likely; PCT >0.5 and </=2 ng/mL - sepsis possible; PCT >2 ng/mL - sepsis likely; PCT >/=10 ng/mL - systemic inflammatory response - sepsis or septic shock highly indicated. Vitamin B12 Level 318 PG/ML 239-931 10/10/2016 4:57am 10/11/2016 2: 23am Thyroid Stimulating Hormone (TSH) 16.10 MIU/L H 0.47-4.68 10/09/2016 3: 30pm 10/09/2016 5:50pm Urine Collection Type VOIDED-NOT CC-MIDSTR 10/09/2016 2:48pm 2016 2:56pm Urine Color YELLOW YELLOW 10/09/2016 2:48pm 10/09/2016 2:56pm Urine Turbidity CLOUDY CLEAR 10/09/2016 2:48pm 10/09/2016 2:56pm Urine Specific [place] >=1.030 H 1.015-1.025 10/09/2016 2:48pm 2016 2:56pm Urine pH 5.0 5.0-8.0 10/09/2016 2:48pm 10/09/2016 2:56pm Urine Leukocyte Esterase NEGATIVE NEGATIVE 10/09/2016 2:48pm 2016 2:56pm Urine Nitrite POSITIVE A NEGATIVE 10/09/2016 2:48pm 10/09/2016 2:56pm Urine Protein TRACE A NEGATIVE 10/09/2016 2:48pm 10/09/2016 2:56pm Urine Glucose (UA) NEGATIVE NEGATIVE 10/09/2016 2:48pm 10/09/2016 2: 56pm Urine Ketones TRACE A NEGATIVE 10/09/2016 2:48pm 10/09/2016 2:56pm Urine Urobilinogen 1.0 EU/DL NORMAL 10/09/2016 2:48pm 10/09/2016 2: 56pm Urine Bilirubin NEGATIVE NEGATIVE 10/09/2016 2:48pm 10/09/2016 2: 56pm Urine Blood TRACE-INTACT A NEGATIVE 10/09/2016 2:48pm 10/09/2016 2: 56pm Urine WBC 1-3 /HPF 0-5 10/09/2016 2:48pm 10/09/2016 3:07pm Urine RBC 0-1 /HPF 0-3 10/09/2016 2:48pm 10/09/2016 3:07pm Urine Squamous Epithelial Cells 20-50 10/09/2016 2:48pm 10/09/2016 3:07pm Urine Bacteria 2+ H NEGATIVE 10/09/2016 2:48pm 10/09/2016 3:07pm Urine Amorphous Phosphates MANY 10/09/2016 2:48pm 10/09/2016 3: 07pm Urine Hyaline Casts 1-3 /LPF 10/09/2016 2:48pm 10/09/2016 3:07pm Urine Culture Indicated CULT REFLEXED &SETUP 10/09/2016 2:48pm 3:07pm Glucometer 98 mg/dL 65-110 10/09/2016 1:18pm 10/09/2016 1:20pm Microbiology Results Procedure Source Organism/Result Collection Date/Time Result Date/Time Result Status Blood Culture Peripheral/Iv Start NO GROWTH AFTER 24 HOURS 10/09/2016 3: 24pm 10/10/2016 3:32pm Preliminary Urine Culture Urine, Voided-Not Cc-Midstream MIXED TRAMAINE 10/09/2016 3:08pm 10/11/2016 7:42am Final Name: HARPER WAGNER Unit #: [id number] : [id number] Sex: F DISCHARGE SUMMARY Admit Date: 10/09/16 Report #: [id number] [facility] General Date Date DATE: 10/11/16 TIME: 10:31 Attending Physician Juliana Maradiaga DO Admitting Physician Shanna June MD Consulting Physician Admitting Diagnosis severe sepsis, dehydration with hypernatremia, altered mental status Discharge Diagnosis UTI Hypothyroidism History of intracranial hemorrhage histor of SUBSTATION MANAGER shunt placement Laboratory Laboratory Tests Test 10/10/16 04:57 10/11/16 04:08 White Blood Count 13.8T/MM3 (4.5-11.0) 13.1T/MM3 (4.5-11.0) Red Blood Count 4.22M/MM3 (4.00-5.20) 3.91M/MM3 (4.00-5.20) Hemoglobin 13.2GM/DL (12-16) 12.2GM/DL (12-16) Hematocrit 41.1% (36-46) 38.2% (36-46) Mean Corpuscular Volume 97.4UM3 (80-100) 97.7UM3 (80-100) Mean Corpuscular Hemoglobin 31.3UUG (26-34) 31.2UUG (26-34) Mean Corpuscular Hemoglobin Concent 32.1GM/DL (31-37) 31.9GM/DL (31-37) RDW Standard Deviation 49.7FL (36.9-50.2) 50.1FL (36.9-50.2) Platelet Count 250T/MM3 (130-400) 241T/MM3 (130-400) Mean Platelet Volume 9.4UM3 (9.4-12.4) 9.8UM3 (9.4-12.4) Immature Granulocyte % (Auto) 0.4% (0.0-0.5) 0.2% (0.0-0.5) Neutrophils (%) (Auto) 62.8% (33-66) 63.8% (33-66) Lymphocytes (%) (Auto) 21.6% (23-45) 20.1% (23-45) Monocytes (%) (Auto) 8.3% (0-9.0) 9.6% (0-9.0) Eosinophils (%) (Auto) 6.2% (0-4) 5.8% (0-4) Basophils (%) (Auto) 0.7% (0-2) 0.5% (0-2) Absolute Immature Granulocyte (auto 0.05T/MM3 (0.00-0.03) 0.03T/MM3 (0.00-0.03) Absolute Neutrophils (auto) 8.7T/MM3 (1.8-7.7) 8.4T/MM3 (1.8-7.7) Absolute Lymphocytes (auto) 3.0T/MM3 (1-4.8) 2.6T/MM3 (1-4.8) Absolute Monocytes (auto) 1.1T/MM3 (0-0.8) 1.3T/MM3 (0-0.8) Absolute Eosinophils (auto) 0.9T/MM3 (0-0.5) 0.8T/MM3 (0-0.5) Absolute Basophils (auto) 0.1T/MM3 (0-0.2) 0.1T/MM3 (0-0.2) Turbidity < 20 (0-20) < 20 (0-20) Sodium Level 146MEQ/L (134-144) 142MEQ/L (134-144) Potassium Level 3.4MEQ/L (3.6-5) 3.4MEQ/L (3.6-5) Chloride Level 112MEQ/L (98-107) 112MEQ/L (98-107) Carbon Dioxide Level 25MEQ/L (22-30) 23MEQ/L (22-30) Anion Gap 9MEQ/L (5-15) 7MEQ/L (5-15) Blood Urea Nitrogen 35.0MG/DL (7-17) 24.0MG/DL (7-17) Creatinine 0.9MG/DL (0.7-1.2) 0.7MG/DL (0.7-1.2) Glomerular Filtration Rate Calc 61 81 BUN/Creatinine Ratio 39RATIO (6-26) 34RATIO (6-26) Glucose Level 93MG/DL (65-110) 97MG/DL (65-110) Calculated Osmolality 289MOSM/KG (261-280) 277MOSM/KG (261-280) Calcium Level 8.2MG/DL (8.4-10.2) 8.2MG/DL (8.4-10.2) Phosphorus Level 3.3MG/DL (2.5-4.5) Magnesium Level 2.2MG/DL (1.6-2.3) Icterus Index < 2 (0-7) < 2 (0-7) C-Reactive Protein 61.7MG/L (0-9) Albumin 3.2G/DL (3.5-5.0) Vitamin B12 Level 318PG/ML (239-931) Chemistry Specimen Hemolysis < 15 (0-25) < 15 (0-25) Microbiology Microbiology Date/Time Source Procedure Growth Status 10/09/16 15:24 Peripheral/Iv Start Blood Culture - Preliminary NO GROWTH AFTER 24 HOURS Resulted 10/09/16 15:13 Peripheral/Iv Start Blood Culture - Preliminary NO GROWTH AFTER 24 HOURS Resulted 10/09/16 15:08 Urine, Voided-Not Cc-Midstream Urine Culture - Final Mixed Tramaine Complete Radiology CT Brain IMPRESSION: 1. Negative for acute intracranial process. 2. Ventricular shunt in place. 3. Evidence of prior right craniotomy. 4. Cerebral and cerebellar atrophy and chronic microvascular ischemia. History of Present Illness Patient is a 76-year-old female who currently resides independently in the housing facility in [place], [place]. Patient is a very poor historian and multiple stories given while in the emergency room. However, patient reports that she fell 4 times yesterday. She also reports that EMS came and helped assist her up. However, she continued to have significant weakness. Today she was crawling around on the floor and finally EMS was called and transported patient to [facility] emergency room for further evaluation and treatment. She was found have an elevated white count at 18.6, hemoglobin 14.9, hematocrit 46, pleuritic count 288, neutrophils 74%. Sodium was found to be elevated at 150, potassium 3.7, BUN 49, creatinine 1.3, glucose 108, Weight osmology 302. AST is slightly elevated at 47, CK elevated at 613. Troponin was -0.012, proBNP 939. Venous lactate was found to be elevated at 2.3, pro calcitonin 0.05. A urinalysis is obtained showing trace ketones, trace blood, positive nitrates with 2+ bacteria. A CT scan of the brain was of pain showing no acute intracranial process. However, history of ventricular shunt with evidence of prior right craniotomy. Given leukocytosis, UTI and weakness. The hospitalist services were contacted and accepted patient for outpatient measurement further evaluation and treatment. Harper is seen on initial examination. She is alert however is a very poor historian. She verifies that she has not seen a medical provider in "years". Hospital Course 10/09/16 Admit patient to inpatient status given that patient meets criteria for sepsis with leukocytosis, UTI and elevated venous lactate. Patient was started on Rocephin while in the emergency room, will continue 1 gram IV daily. Blood cultures are pending. Change IV fluids to 1/2 normal saline at 100 ML per hour for ongoing hydration. Repeat venous lactate in 6 hours as recommended by sepsis protocol Monitor patient on cardiac telemetry Obtain TSH for laboratory completeness. Given patient's known history of hypothyroidism SCDs to bilateral lower extremity for DVT prophylaxis She may be up in room with assistance only Consult placed to case management. Given significant self-care deficit. Concerned that patient is residing independently. Will recheck CBC and BMP tomorrow morning to follow blood counts, renal function and electrolyte. Baseline creatinine is unknown as patient has never been to [facility] prior to this. 10/10 Mrs. Wagner has evidence of left-sided weakness relative to right on examination and per PT eval. Being evaluated for IRU for further strengthening. Fatigues with ambulation, multiple recent falls. Will discuss further imaging for evaluation of acute stroke with the patient. Afebrile since admission, leukocytosis improving. Urine with mixed species- likely contamination. Continue antibiotics pending results tomorrow. Renal function improving with hydration, sodium slightly better, continue hypotonic fluids. Replace potassium orally. Thyroid supplementation initiated. Blood pressure control adequate without medication at present. Hypoxia noted on several occasions-overnight oximetry to be obtained. History tobacco use noted. Case management spoke with the patient's son who indicated she has had moderate depression since the of her , no indication of suicidal ideation or plan. Continue to monitor-may benefit from antidepressant however the patient indicates financial concerns and limited willingness to take medications consistently such that I'm reluctant to start multiple medications in short order. Unclear the patient will be able to return to prior living arrangement. 10/11/16 Will continue keflex for total of 5 antibiotic days - urine culture with mixed tramaine. Needs oxygen at night - initiated. Continue thyroid supplementation. Re-visited possible MRI of brain. Discussed possible SUBSTATION MANAGER shunt complications. There are no abnormalities on CT scan to suggest ventriculomegaly, therefore, at this time patient would simply like to proceed with rehab and re-visit this is her rehab course is not successful. Her neurosurgeon is Dr. Cochran from [place]. To d/c to inpatient rehab today. 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 Code Status Do Not Resuscitate Home Meds Reported Medications Ibuprofen (Ibuprofen) 200 Mg Tablet, 400 MG PO Q4H Y for PAIN 10/09/16 [No Routine Meds] No Conflict Check 10/09/16 Face to Face Encounter I met with patient on the day of dismissal and discussed follow up appointments , medications, and safety plan. Discharge Disposition Inpatient rehab. Stable JULIANA MARADIAGA DO (HOSPITALIST) Oct 11, 2016 10:35 Procedures No known history of procedures. Encounters Encounter Location Arrival/Admit Date Discharge/Depart Date Attending Provider Discharged Inpatient [facility] 10/09/16 4:50pm 10/11/16 2:28pm SHANNA JUNE MD
[2016-10-11 15:06] VITALS: BP 150/70; PULSE 62; RESP 20; TEMP 97.8; O2SAT 92
[2016-10-11 15:07] VITALS: Ht 154.9 cm; Wt 73.3 kg
[2016-10-11] MEDS ORDERED: PRN ORDERS MC (15:45)
[2016-10-11] MEDS ORDERED: IBUPROFEN 200 MG TABLET PO PRN (15:45)
--- NOTE | 2016-10-11 19:36 | NUR ---
SHIFT SUMMARY PATIENT COOPERATIVE THROUGHOUT SHIFT. VITALS STABLE. UP WITH ONE WITH WALKER TO BATHROOM, INCONTINENT VOID AND ONE CONINENT VOID. NO BM ON MY SHIFT. BED ALARM ON, BED IN LOW LOCKED POSITION. DENIES PAIN. PATIENT ATE DINNER ADEQUATELY. ON 3 L O2 NC. WILL CONTINUE TO MONITOR.
[2016-10-11] MEDS: CEPHALEXIN 500 MG CAPSULE PO SCH (21:09)
[2016-10-11] MEDS: DOCUSATE SODIUM 100 MG CAPSULE PO SCH (21:10)
[2016-10-11 23:08] VITALS: BP 144/58; PULSE 66; RESP 15; TEMP 98.2; O2SAT 94
[2016-10-12 00:40] VITALS: O2SAT 94
[2016-10-12 05:06] LABS: BASOPHILS # (AUTO) 0.1 T/MM3 (0-0.2); BASOPHILS % (AUTO) 0.5 % (0-2); EOSINOPHILS # (AUTO) 0.7 T/MM3 (0-0.5); EOSINOPHILS % (AUTO) 5.8 % (0-4); HGB - HEMOGLOBIN 12.7 GM/DL (12-16); IMMATURE GRANULOCYTE # (AUTO) 0.03 T/MM3 (0.00-0.03); IMMATURE GRANULOCYTE % (AUTO) 0.2 % (0.0-0.5); LYMPHOCYTES # (AUTO) 1.9 T/MM3 (1-4.8); LYMPHOCYTES % (AUTO) 15.7 % (23-45); MEAN CORPUSCULAR HGB 31.1 UUG (26-34); MEAN CORPUSCULAR HGB CONC(MCHC 31.8 GM/DL (31-37); MEAN CORPUSCULAR VOLUME 97.8 UM3 (80-100); MEAN PLATELET VOLUME 9.8 UM3 (9.4-12.4); MONOCYTES # (AUTO) 1.2 T/MM3 (0-0.8); MONOCYTES % (AUTO) 9.8 % (0-9.0); NEUTROPHILS #(AUTO)-ABSOLUTE 8.4 T/MM3 (1.8-7.7); RED BLOOD COUNT 4.09 M/MM3 (4.00-5.20); WBC - WHITE BLOOD COUNT 12.3 T/MM3 (4.5-11.0)
[2016-10-12 05:13] LABS: ANION GAP 10 MEQ/L (5-15); BUN/CREATININE RATIO 23 RATIO (6-26); CALCIUM 8.4 MG/DL (8.4-10.2); CHLORIDE 112 MEQ/L (98-107); CO2 - CARBON DIOXIDE 23 MEQ/L (22-30); CREATININE 0.7 MG/DL (0.7-1.2); GLOMERULAR FILTRATION RATE 81; GLUCOSE 102 MG/DL (65-110); POTASSIUM 3.6 MEQ/L (3.6-5); SODIUM 145 MEQ/L (134-144)
--- NOTE | 2016-10-12 05:24 | NUR ---
Chart Check 24 hour chart check completed
[2016-10-12] MEDS: LEVOTHYROXINE 50 MCG TABLET PO SCH (06:51)
--- NOTE | 2016-10-12 07:51 | NUR ---
Summary IV dc'd last night for leaking when flushed. Pt jokes sarcastically with staff, does make negative comments criticizing herself such as calling herself "leadbutt". Pt was incontinent of bladder this morning requiring change of gown and sheets. Pt denies pain. water and call light in reach. report given
[2016-10-12 08:00] VITALS: BP 146/67; PULSE 74; RESP 24; TEMP 98.5; O2SAT 95
[2016-10-12] MEDS: CEPHALEXIN 500 MG CAPSULE PO SCH ×3 (08:27→22:28)
[2016-10-12] MEDS: POTASSIUM CHLORIDE 20 MEQ TABLET PO SCH (08:27)
[2016-10-12] MEDS: ASPIRIN *EC* 81mg TABLET PO SCH (08:27)
[2016-10-12] MEDS: DOCUSATE SODIUM 100 MG CAPSULE PO SCH ×2 (08:27→22:28)
--- NOTE | 2016-10-12 10:22 | NUR ---
Consultation call made to Dr. Pérez. Advised he will not be in [place] until 10/17. Appointment made estimate he should see patient at approximately 11:45 on this day.
--- NOTE | 2016-10-12 12:17 | NUR ---
CM THIS WORKER RECALLED PT FROM MEDICAL FLOOR AND REINTRODUCED HERSELF AND ROLE OF CASE MANAGEMENT. PT STATED SHE WOULD LIKE INFORMATION ON DPOA FORM. THIS WORKER STATED SHE WOULD MAKE A COPY OF DPOA FORM FOR HER. PT STATED SHE IS HAPPY HER SON WILL BE HERE TO VISIT WITH HER. PT STATED HER PLAN IS TOR RETURN HOME TO [facility] AFTER DISCHARGE. THIS PT WAS GIVEN WORKER'S CONTACT INFORMATION AND ENCOURAGED TO CALL WITH QUESTIONS/NEEDS. THIS WORKER DISCUSSED WITH NURSE CONCERNS ON MENTAL STATUS AND PSYCH CONSULT IS NEEDED. NURSE STATED SHE SPOKE WITH DOCTOR THE CONCERNS AND CONSULT IS IN PLACE. THIS WORKER RE-ENTERED ROOM AND LEFT COPY OF DPOA FORM ON PT'S TABLE WITH WORKER'S CONTACT INFORMATION. Addendum: 10/12/16 at 1225 by CALI ADAMES Amended: Links added.
--- NOTE | 2016-10-12 14:48 | CONSPD ---
Consultation Info Date DATE: 10/12/16 TIME: 14:33 Date of Consultation: Oct 12, 2016 Attending Physician: Brandon Reason for Consultation: Medical management HPI - Adult Date DATE: 10/12/16 TIME: 14:33 General Chief Complaint: urinary tract infection, weakness, ambulatory dysfunction, self-care defici History of Present Illness Patient is a 76 year old female who is known to the hospitalist services as she was recently admitted to the medical unit acutely for sepsis, urinary tract infection, hyponatremia and hypokalemia. She was found to have significant self- care deficit and was dehydrated. She was treated with antibiotics for coverage of urinary tract infection. She was hydrated and overall, her medical status improved. She continues to be significantly weak and given that she resides independently at home. She was screened and accepted to the inpatient rehabilitation unit for further evaluation and treatment. Is my laboratory studies were reviewed, and patient continues to have a mild leukocytosis with a white count of 12.3, 68% neutrophils. Hemoglobin is stable at 12.7, hematocrit 40, platelet count 222. Edema is found to be elevated at 145, potassium 3.6, BUNs 16, creatinine 0.7. Vital signs were reviewed. Temperature 98.5, pulse 74, blood pressure 146/67, room air saturations 95%. He is seen this morning for initial consultation. She is alert and oriented and pleasant during examination. She is without complaints of pain or feeling short of breath. Her only complaint is being awoke this morning for routine lab draw. Appetite appears to be good if she did eat 75% of breakfast. Past Medical History Past Medical History "Brain aneurysm"- Ventricular shunt present on CT Hypertension Hypothyroidism Patient verbalizes that she has not seen a doctor in "years" and that she does not have any current health problems Surgical History Patient's Surgical History: Evidence of prior right craniotomy with ventricular shunt Current Medications Home Meds Active Scripts Cephalexin (Keflex) 500 Mg Capsule, 500 MG PO TID for 3 Days, #9 CAP Prov:LEELA ANDRADE APRN 10/11/16 Levothyroxine Sodium (Synthroid) 50 Mcg Tablet, 50 MCG PO ACB for 30 Days, #30 TAB Prov:LEELA ANDRADE APRN 10/11/16 Potassium Chloride (Klor-Con M20) 20 Meq Tablet, 20 MEQ PO WB for 30 Days, #30 TAB Prov:LEELA ANDRADE APRN 10/11/16 Aspirin *EC* (Aspirin EC) 81 Mg Tablet.dr, 81 MG PO DAILY for 30 Days, #30 TAB Prov:LEELA ANDRADE V STEVEN 10/11/16 Reported Medications Ibuprofen (Ibuprofen) 200 Mg Tablet, 400 MG PO Q4H Y for PAIN 10/09/16 Discontinued Reported Medications [No Routine Meds] No Conflict Check 10/09/16 Allergies: Coded Allergies: No Known Allergies (Unverified , 10/09/16) Family History Family History: unknown by alejandronet Social History Substance Use Type: does not use Substance last used: prior to arrival Alcohol Intake: none Housing: house Advance Directives: No DPOA for Healthcare Only Social History Comments No primary care provider Review of Systems All Other Systems All Other Systems: Reviewed (remainder of 10-point ROS Neg.) Comments Denies all ROS question Physical Exam General General Nourishment: well nourished, well developed Vital Signs Vital Signs Date Time Temp Pulse Resp B/P Pulse Ox O2 Delivery O2 Flow Rate FiO2 10/12/16 08:00 98.5 74 24 146/67 95 Room Air 10/12/16 00:40 1.50 Height (Feet): 5 Height (Inches): 1.00 Eyes Brief: FOUND: EOMI, PERRL Respiratory Brief: FOUND: clear all noguera, equal bilaterally, NOT FOUND: wheezes Cardiovascular (brief) Cardiac Brief: FOUND: regular rate, regular rhythm, NOT FOUND: murmur, pedal edema Abdomen (brief) Abdominal Brief: FOUND: BS normo active x4, soft, NOT FOUND: distended, tender Integumentary (brief) Integumentary Brief: FOUND: dry, pink, warm Neurologic (brief) Neurological Brief: FOUND: cranial 2-12 intact Neurologic RN Documented GCS Eye Opening: Verbal: Motor: Total: Psychiatric (brief) FOUND: alert, attentive, normal affect Laboratory Laboratory Tests Test 10/12/16 04:23 White Blood Count 12.3T/MM3 Red Blood Count 4.09M/MM3 Hemoglobin 12.7GM/DL Hematocrit 40.0% Mean Corpuscular Volume 97.8UM3 Mean Corpuscular Hemoglobin 31.1UUG Mean Corpuscular Hemoglobin Concent 31.8GM/DL RDW Standard Deviation 48.9FL Platelet Count 222T/MM3 Mean Platelet Volume 9.8UM3 Immature Granulocyte % (Auto) 0.2% Neutrophils (%) (Auto) 68.0% Lymphocytes (%) (Auto) 15.7% Monocytes (%) (Auto) 9.8% Eosinophils (%) (Auto) 5.8% Basophils (%) (Auto) 0.5% Absolute Immature Granulocyte (auto 0.03T/MM3 Absolute Neutrophils (auto) 8.4T/MM3 Absolute Lymphocytes (auto) 1.9T/MM3 Absolute Monocytes (auto) 1.2T/MM3 Absolute Eosinophils (auto) 0.7T/MM3 Absolute Basophils (auto) 0.1T/MM3 Turbidity < 20 Sodium Level 145MEQ/L Potassium Level 3.6MEQ/L Chloride Level 112MEQ/L Carbon Dioxide Level 23MEQ/L Anion Gap 10MEQ/L Blood Urea Nitrogen 16.0MG/DL Creatinine 0.7MG/DL Glomerular Filtration Rate Calc 81 BUN/Creatinine Ratio 23RATIO Glucose Level 102MG/DL Calculated Osmolality 280MOSM/KG Calcium Level 8.4MG/DL Icterus Index < 2 Chemistry Specimen Hemolysis 26 Impression/Recommendation Problems: (1) Hypernatremia Status: Acute (2) UTI (urinary tract infection) Status: Acute (3) Self-care deficit for hygiene Status: Acute (4) HTN (hypertension) Status: Chronic (5) Ambulatory dysfunction Status: Acute (6) Hypothyroidism Status: Chronic (7) Ventricular shunt in place Status: Chronic (8) History of intracranial hemorrhage Status: Resolved Recommendation Agree with admission to the inpatient rehabilitation unit under care of Dr. Amaya She was requiring oxygen and admission. However has been able to wean down to room air. She will continue on Keflex antibiotic until 10/14/16 In light of recent mild Hypokalemia will continue with oral supplementation daily Consultation placed to Dr. Mendieta for psychiatric evaluation regarding depression and suicidal thoughts Podiatry consultation was placed for evaluation of patient's toenails. This is scheduled for Tuesday 10/[address] Beto Henderson twice a day for ongoing bowel motivation. Patient may have regular diet. SCDs to bilateral extremity for DVT prophylaxis. Overall, and ibuprofen as needed for pain control. Will recheck BMP on Saturday 10/14 for continued following of electrolytes and renal function Appreciate medical consultation, the hospitalist services will continue to follow patient and medical management during her stay on the rehabilitation unit. At time of discharge, recommended that patient establish and follow up with a primary care provider LEELA ANDRADE APRN Oct 12, 2016 14:39
--- NOTE | 2016-10-12 14:56 | HPPDOC ---
HPI Date DATE: 10/12/16 TIME: 14:47 General Chief Complaint: weakness, uti History of Present Illness 76 yo female admitted to IRU with weakness and disuse myopathy due to UTI with Sepsis admisssion to hospital. She was at home and fell several times in a single day. Ultimately EMS was contacted and patient was brought into ED for evaluation and treatment. She was started on IV antibiotics and admitted to hospitalist. Currently UTI is stable and pt is appropriate for d/c but not appropriate to go home. She still requires medical supervision and will need physical therapy and occupational therapy to strenghten prior to leaving hospital. Past Medical History Past Medical History "Brain aneurysm"- Ventricular shunt present on CT Hypertension Hypothyroidism Patient verbalizes that she has not seen a doctor in "years" and that she does not have any current health problems Surgical History Patient's Surgical History: Evidence of prior right craniotomy with ventricular shunt Current Medications Home Meds Active Scripts Cephalexin (Keflex) 500 Mg Capsule, 500 MG PO TID for 3 Days, #9 CAP Prov:LEELA ANDRADE APRN 10/11/16 Levothyroxine Sodium (Synthroid) 50 Mcg Tablet, 50 MCG PO ACB for 30 Days, #30 TAB Prov:LEELA ANDRADE APRN 10/11/16 Potassium Chloride (Klor-Con M20) 20 Meq Tablet, 20 MEQ PO WB for 30 Days, #30 TAB Prov:LEELA ANDRADE APRN 10/11/16 Aspirin *EC* (Aspirin EC) 81 Mg Tablet.dr, 81 MG PO DAILY for 30 Days, #30 TAB Prov:LEELA ANDRADE APRN 10/11/16 Reported Medications Ibuprofen (Ibuprofen) 200 Mg Tablet, 400 MG PO Q4H Y for PAIN 10/09/16 Discontinued Reported Medications [No Routine Meds] No Conflict Check 10/09/16 Allergies: Coded Allergies: No Known Allergies (Unverified , 10/09/16) Family History Family History: unknown by alejandronet Social History Substance Use Type: does not use Substance last used: prior to arrival Alcohol Intake: none Housing: house Advance Directives: No DPOA for Healthcare Only Review of Systems Constitutional: REPORTS: see HPI General: see HPI All Other Systems All Other Systems: Reviewed Physical Exam General General Nourishment: well developed General Body Habitus: disheveled Vital Signs Vital Signs Date Time Temp Pulse Resp B/P Pulse Ox O2 Delivery O2 Flow Rate FiO2 10/12/16 08:00 98.5 74 24 146/67 95 Room Air 10/12/16 00:40 1.50 Height (Feet): 5 Height (Inches): 1.00 Eyes Brief: FOUND: EOMI, PERRL Neck Brief: NOT FOUND: adenopathy, carotid bruits, thyromegaly Respiratory Brief: FOUND: clear all noguera, equal bilaterally Cardiovascular (brief) Cardiac Brief: FOUND: regular rate, regular rhythm Abdomen (brief) Abdominal Brief: FOUND: BS normo active x4, soft, tender (mild flank tenderness bilat.) Neurologic RN Documented GCS Eye Opening: Verbal: Motor: Total: Laboratory Laboratory Tests Test 10/12/16 04:23 White Blood Count 12.3T/MM3 Red Blood Count 4.09M/MM3 Hemoglobin 12.7GM/DL Hematocrit 40.0% Mean Corpuscular Volume 97.8UM3 Mean Corpuscular Hemoglobin 31.1UUG Mean Corpuscular Hemoglobin Concent 31.8GM/DL RDW Standard Deviation 48.9FL Platelet Count 222T/MM3 Mean Platelet Volume 9.8UM3 Immature Granulocyte % (Auto) 0.2% Neutrophils (%) (Auto) 68.0% Lymphocytes (%) (Auto) 15.7% Monocytes (%) (Auto) 9.8% Eosinophils (%) (Auto) 5.8% Basophils (%) (Auto) 0.5% Absolute Immature Granulocyte (auto 0.03T/MM3 Absolute Neutrophils (auto) 8.4T/MM3 Absolute Lymphocytes (auto) 1.9T/MM3 Absolute Monocytes (auto) 1.2T/MM3 Absolute Eosinophils (auto) 0.7T/MM3 Absolute Basophils (auto) 0.1T/MM3 Turbidity < 20 Sodium Level 145MEQ/L Potassium Level 3.6MEQ/L Chloride Level 112MEQ/L Carbon Dioxide Level 23MEQ/L Anion Gap 10MEQ/L Blood Urea Nitrogen 16.0MG/DL Creatinine 0.7MG/DL Glomerular Filtration Rate Calc 81 BUN/Creatinine Ratio 23RATIO Glucose Level 102MG/DL Calculated Osmolality 280MOSM/KG Calcium Level 8.4MG/DL Icterus Index < 2 Chemistry Specimen Hemolysis 26 Assessment & Plan Problems: (1) Myopathy Assessment & Plan: PT and OT will be consulted to manage and oversee strengthening of patient. (2) Sepsis Status: Acute Assessment & Plan: Medical to continue to manage. (3) Self-care deficit for hygiene Assessment & Plan: OT and PT to work with patient and oversee. Code Status Do Not Resuscitate Interventions to Obtain Goals PT Treatment Plan: Therapeutic Exercise, Gait Training, Functional Activities , Patient/Family Education, Balance/Proprioception OT Treatment Plan: ADL's (basic care), Ther. Exercise for ADL's, UE Functional Training, Balance Training, Pt./Family Education, IADL's Hospital Course Summary Disclaimer The hospital course summary below is not to be considered part of the above Progress Note. JUSTICE ENGLAND MD Oct 12, 2016 14:50
--- NOTE | 2016-10-12 14:59 | IRU24PDOC ---
24 Hour Post Admission Eval Relevant Changes Relevant Changes: No I have reviewed the patient's information and concur with the finding and results of the pre-admission screen. Certification I certify the patient for rehabilitation. Patient Condition Prior Medical Conditions: (1) Myopathy Status: Acute Additional Information: PT and OT will be consulted to manage and oversee strengthening of patient. (2) Sepsis Status: Acute Additional Information: Medical to continue to manage. (3) Self-care deficit for hygiene Status: Acute Additional Information: OT and PT to work with patient and oversee. Current Medical Conditions: (1) Myopathy Status: Acute Additional Information: PT and OT will be consulted to manage and oversee strengthening of patient. (2) Sepsis Status: Acute Additional Information: Medical to continue to manage. (3) Self-care deficit for hygiene Status: Acute Additional Information: OT and PT to work with patient and oversee. Prior Functional Condition Lives With: Alone Residence Type: Private home/apartment Assistive Devices: Straight Cane Prior Functional Status: Indep. at home or school Current Functional Status Failed Alternative Therapy Tri: Arrived from acute care Patient Requirements * Patient has been determined to have significant functional limitations requiring at least two therapy disciplines. * Rehabilitation medical practitioner will provide admission approval, assessment and oversight and program coordination at least daily. * Intensive rehabilitative nursing services on site and available 24 hours a day. * The treatment plan will be developed within 24 hours of admission. * Interdisciplinary and goal oriented treatment by professional nursing, social sciences lecturer, and rehabilitation therapist. * Interdisciplinary team meeting weekly inclusive of ongoing comprehensive discharge planning. First team meeting by day seven. Weekly meetings to follow. * Rehab Physician is the team meeting leader. * Pharmacy and diagnostic services will be available. * Ongoing comprehensive rehab program with at least 2 disciplines and greater than or equal to 3 hours a day, 5 days a week. Limitations require: ADL impairment Physical Therapy Minutes: 90 Occupational Therapy Minutes: 90 Therapy The patient is to receive therapy at least 5 days a week. Current Functional Status: Using assistive device PT Treatment Plan: Therapeutic Exercise, Gait Training, Functional Activities , Patient/Family Education, Balance/Proprioception Treatment Plan Frequency: five times per week Treatment Plan Duration: two weeks Plan of Care Comment: 6x/week x 1 week, then 5x/week x following weeks OT Treatment Plan: ADL's (basic care), Ther. Exercise for ADL's, UE Functional Training, Balance Training, Pt./Family Education, IADL's OT Treatment Plan Frequency: five times per week OT Treatment Plan Duration: three weeks ROM Comment: B LE AROM/PROM is WFL; see OT eval for UE ROM Muscle Weakness Location: Left Lower Extremity Complication/Comorbidities Patient Complication Risk: (1) Myopathy Status: Acute Comments: PT and OT will be consulted to manage and oversee strengthening of patient. (2) Sepsis Status: Acute Comments: Medical to continue to manage. (3) Self-care deficit for hygiene Status: Acute Comments: OT and PT to work with patient and oversee. Impact on Functional Outcomes Will require oversight and supervision due to weakness and infection. Barriers to Discharge: weakness, endurance, medical stability Plan to Avoid Complications Plan to Avoid Complications The patient cannot receive this care in a lesser intensive setting such as Custodial or Outpatient Therapy due to the patient requiring the following for Sepsis and uti.. The patient requires oversight by a rehabilitation physician to manage their rehabilitation treatment plan and the multidisciplinary approach to care that can only be provided in an IRF and requires a multidisciplinary approach to care , provided by professional PTs, OTs, STs, dieticians, RTs, rehabilitation nurses and is not available in lesser levels of care. The frequency and duration for therapy, as recommended by the professional Rehabilitation therapists, meet the patient's initial rehabilitation treatment plan needs and will be further evaluated on a weekly basis for progress and/or changes needed. JUSTICE ENGLAND MD Oct 12, 2016 14:59
[2016-10-12 18:29] VITALS: BP 151/74; PULSE 69; RESP 18; TEMP 98.7; O2SAT 91
--- NOTE | 2016-10-12 19:31 | NUR ---
SHIFT SUMMARY PT HAS AMBULATED WITH THERAPY. HAS USED WHEELCHAIR TO DINING ROOM WITH STAFF. PT HAS AT TIMES BEEN ARGUMENTATIVE ABOUT DOING THERAPY. IT HAS BEEN UNCLEAR HOW SERIOUS PT IS, WHEN THERAPY GOES IN PT DOES THERAPY. PT DID MAKE A COMMENT ABOUT JUST WANTING TO BE DONE WITH LIFE. IT WAS UNCLEAR ABOUT HOW SERIOUS PT IS WHEN MAKING THESE COMMENTS. CALI THE STUDENT WITH [employer] CAME BY PREVIOUS TO THIS RN HEARING THE PT'S COMMENTS AND REPORTED THAT PT HAD HAD SIMILAR COMMENTS PRIOR TO ADMIT ON THIS UNIT. CALI REQUESTED A PSYCH CONSULT BE PLACED. DR. ENGLAND WAS CALLED AND THIS ORDER WAS PLACED. PT'S SON AND GRANDDAUGHTER CAME AND VISITED PT THIS AFTERNOON. PT'S FAMILY REQUESTED TO SPEAK WITH A . LEELA ANDRADE APRN WAS CALLED AND ASKED TO COME AND SPEAK WITH PT AND FAMILY. PT'S SON ASKED LEELA TO SET UP A MEETING WITH CASE MANAGEMENT AND HER AND DR. ENGLAND TOMORROW. PT IS RESTING IN ROOM.
[2016-10-12 22:15] VITALS: BP 144/72; PULSE 63; RESP 20; TEMP 98.6; O2SAT 89
[2016-10-13] MEDS: LEVOTHYROXINE 50 MCG TABLET PO SCH (06:42)
--- NOTE | 2016-10-13 07:26 | NUR ---
COMPLETED MORNING ASSESSMENT PATIENT LAYING IN BED WITH EYES OPEN IN GOOD PLEASANT MOOD AND VERY TALKATIVE VOICES NO PAIN / DISCOMFORT NO SHORTNESS OF AIR. WILL CONTINUE TO MONITOR.
--- NOTE | 2016-10-13 07:30 | NUR ---
SHIFT SUMMARY Harper was resistive to toileting or anything that involved getting out of bed, but she was cooperative when staff insisted. She was incontinent of urine twice, and did not tell staff. She transfers and ambulates with 1 assist. Took all meds whole with water. She made several statements that she would just stay in bed all day today and take the day off, but then indicated she was joking. Conversed with staff appropriately from her bed.
[2016-10-13 08:17] VITALS: BP 144/75; PULSE 62; RESP 18; TEMP 98.5; O2SAT 90
[2016-10-13] MEDS: POTASSIUM CHLORIDE 20 MEQ TABLET PO SCH (08:23)
[2016-10-13] MEDS: ASPIRIN *EC* 81mg TABLET PO SCH (08:24)
[2016-10-13] MEDS: CEPHALEXIN 500 MG CAPSULE PO SCH ×2 (08:24→15:37)
[2016-10-13] MEDS: DOCUSATE SODIUM 100 MG CAPSULE PO SCH ×2 (08:24→21:00)
[2016-10-13] MEDS: AMLODIPINE 5 MG TABLET PO SCH (09:17)
--- NOTE | 2016-10-13 12:35 | NUR ---
SHIFT SUMMARY PATIENT UP FOR ALL MEALS AND WALKED TO DINING ROOM WITH ASSIST X1 USING WALKER DENIES PAIN/ DISCOMFORT.VERY TALKATIVE AND HAS GOOD SENSE OF HUMOR MEDICATION TAKEN WELL WITHOUT COMPLAINT.
[2016-10-13 15:26] VITALS: PULSE 68; RESP 16; O2SAT 90
--- NOTE | 2016-10-13 16:03 | PNPDOC ---
Progress Note Date 10/13/16 Harper is seen multiple times throughout the day, however, no physical exam was performed. Did spend 30 minutes in a meeting with case management and patient's family regarding discharge recommendations and planning. Patient's son Claudio is her DPOA. He resides in [place]. He is concerned regarding patient returning to her residence and residing independently as he feels that she is not safe to do so. We did spend time discussing options in regards to skilled, retirement facility. Will continue to work on discharge plans and reevaluate patient's status next week and meet again to determine discharge plan. LEELA ANDRADE APRN Oct 13, 2016 16:03
[2016-10-13 16:12] VITALS: BP 131/70; PULSE 93; RESP 16; TEMP 98.6; O2SAT 93
--- NOTE | 2016-10-13 16:18 | NUR ---
CM FAMILY MEETING WITH PT'S SON, K[place]ON ([phone]), LEELA Amaya APRN, AND THIS WORKER, RE: [employer]. SON SAID HE DOES NOT THINK PT CAN BE AT HOME ALONE ANY MORE DUE TO HER MEMORY DEFICITS. HE WOULD LIKE HER SKILLED AND THEN [facility] CARE. DISCUSSED ASPECTS OF THIS, INCLUDING PAY SOURCE (MEDICAID) AND PT'S WILLINGNESS FOR THIS. SON HAD QUESTIONS ABOUT MEDICAID APPLICATION AND QUESTIONS ABOUT GETTING PT ON MEDICARE PART B. LEELA SAID SHE WILL ORDER SOME COGNITION TESTS. THIS WORKER PROVIDED THIS WORKER'S CONTACT INFO TO [place]. STOPPED BY PT'S ROOM, INTRODUCED SELF TO PT, EXPLAINED ROLE, AND PROVIDED CONTACT INFO. PT WAS WORKING WITH PHYS THERAPY. THIS WORKER THEN SPOKE WITH SON; PROVIDED HIM INFORMATION ON HOW TO APPLY PT FOR MEDICARE PART B, EXPLAINED THERE MIGHT BE A PENALTY FEE FOR THIS; PROVIDED HIM WITH A MEDICAID APPLICATION AT HIS REQUEST. ENCOURAGED HIM TO REVIEW THIS, START TO FILL IT OUT, AND CONTACT THIS WORKER WITH QUESTIONS. ALSO DISCUSSED SEEING IF SON COULD BECOME PT'S AUTHORIZED IT COMMUNICATIONS SPECIALIST THROUGH [employer], TO ASSIST WITH APPLYING FOR MEDICARE B. AGREED THAT THIS WORKER WILL MEET WITH HIM NEXT WEEK TO REVIEW THIS PAPERWORK ALONG WITH THE MEDICAID PAPERWORK.
[2016-10-13] MEDS ORDERED: MILK OF MAGNESIA 30 ML SUSP PO ONE (17:00)
--- NOTE | 2016-10-13 17:02 | PNPDOC ---
Subjective Date DATE: 10/13/16 TIME: 16:58 Subjective Harper is seen multiple times throughout the day.She continues to be alert and orientated during examination.Denies pain or shortness of breath. Appetite has been adequate. Denies difficulty with urination. No bowel movements since admission. Did spend 30 minutes in a meeting with case management and patient's family regarding discharge recommendations and planning. Patient's son Claudio is her DPOA. He resides in [place]. He is concerned regarding patient returning to her residence and residing independently as he feels that she is not safe to do so. We did spend time discussing options in regards to skilled, intermediate facility. Objective Vital Signs Vital signs Vital Signs Date Time Temp Pulse Resp B/P Pulse Ox O2 Delivery O2 Flow Rate FiO2 10/13/16 16:12 98.6 93 16 131/70 93 Room Air 10/13/16 08:17 2.00 Height (Feet): 5 Height (Inches): 1.00 Weight (Kilograms): 73.300 General General Appearance: Alert, Orientated x 2, Cooperative, No Acute Distress Eyes (Brief) Eyes: FOUND: EOMI ENMT (Brief) ENMT: FOUND: mucosa moist, normal dentition, NOT FOUND: pharnyx erythema Neck (Brief) Neck: FOUND: midline, NOT FOUND: adenopathy, carotid bruits, tracheal deviation Respiratory (Brief) Respiratory: FOUND: clear all noguera, equal bilaterally, NOT FOUND: wheezes Cardiovascular (Brief) Cardiac: FOUND: regular rate, regular rhythm, NOT FOUND: murmur, pedal edema Capillary Refill: <2 sec Abdomen (Brief) Abdominal: FOUND: BS normo active x4, soft, NOT FOUND: distended, tender Lymphatic (Brief) Lymphatic: NOT FOUND: adenopathy Musculoskeletal (Brief) Musculoskeletal: NOT FOUND: tenderness Integumentary (Brief) Integumentary: FOUND: dry, pink, warm Neurologic (Brief) Neurological: FOUND: cranial 2-12 intact Psychiatric (Brief) Psychiatric: FOUND: alert, attentive, normal affect Laboratory Laboratory Laboratory Tests 10/12/16 04:23 Laboratory Tests 10/12/16 04:23 Assessment & Plan Problems: (1) Hypernatremia Status: Acute (2) UTI (urinary tract infection) Status: Acute (3) Self-care deficit for hygiene Status: Acute (4) HTN (hypertension) Status: Chronic (5) Ambulatory dysfunction Status: Acute (6) Hypothyroidism Status: Chronic (7) 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 In light of hypernatremia, and hypokalemia Will recheck a BMP tomorrow 10/14 Continue to encourage work with PT and OT for strengthening. Patient ambulated 160 feet with physical therapy today Did spend 30 minutes in a meeting with case management and patient's family regarding discharge recommendations and planning. Patient's son Claudio is her DPOA. He resides in [place]. He is concerned regarding patient returning to her residence and residing independently as he feels that she is not safe to do so. We did spend time discussing options in regards to skilled, intermediate facility. Will continue to work on discharge plans and reevaluate patient's status next week and meet again to determine discharge plan. Code Status Do Not Resuscitate Hospital Course Summary Disclaimer The hospital course summary below is not to be considered part of the above Progress Note. LEELA ANDRADE APRN Oct 13, 2016 17:02
[2016-10-13] MEDS: POLYETHYL.GLYCOL 3350 PACKET 17gm PO SCH (17:18)
--- NOTE | 2016-10-13 18:15 | NUR ---
END SHIFT LAYING IN BED AND VERBALIZES BEING TIRED BECAUSE OF THERAPY PATIENT ALERT /ORIENTED AMBULATES WITH FWW ASSISTX1 NO PRN GIVEN THIS SHIFT VISITED WITH FAMILY IN AFTERNOON HAS GOOD APPETITE AND VOICES NEEDS TO GO HOME. WILL CONTINUE TO MONITOR.
[2016-10-13 20:25] VITALS: BP 141/56; PULSE 86; RESP 18; TEMP 98.3; O2SAT 86
[2016-10-13] MEDS: DiphenhydrAMINE 25 MG CAPSULE PO PRN (21:07)
[2016-10-13] MEDS: DOXYCYCLINE 100 MG TABLET PO SCH (21:42)
--- NOTE | 2016-10-14 05:18 | NUR ---
SHIFT SUMMARY Harper has a red rash all over her back and wrapping around her sides to abdomen and under breasts. It appears to be an allergic rash and upon further examination, seems to be linked to start of Keflex for UTI. Contacted telehospitalist for orders for Benadryl order. DC Keflex. Start Doxycycline. She was incontinent of bowel - loose from administration of MOM earlier today. Another loose stool in toilet. She has requested all laxatives held in a.m. Will pass on to day shift. Used walker for ambulation with min assist. Took meds whole with water. Did wear o2 at this RN insistence. Sats in [id number] on RA.
[2016-10-14 06:36] LABS: ANION GAP 6 MEQ/L (5-15); BUN/CREATININE RATIO 19 RATIO (6-26); CHLORIDE 110 MEQ/L (98-107); CO2 - CARBON DIOXIDE 30 MEQ/L (22-30); CREATININE 0.8 MG/DL (0.7-1.2); GLOMERULAR FILTRATION RATE 70; GLUCOSE 101 MG/DL (65-110); POTASSIUM 4.1 MEQ/L (3.6-5); SODIUM 146 MEQ/L (134-144)
[2016-10-14] MEDS: DiphenhydrAMINE 25 MG CAPSULE PO PRN ×2 (06:50→12:49)
[2016-10-14] MEDS: LEVOTHYROXINE 50 MCG TABLET PO SCH (06:50)
[2016-10-14] MEDS: AMLODIPINE 5 MG TABLET PO SCH (08:44)
[2016-10-14] MEDS: ASPIRIN *EC* 81mg TABLET PO SCH (08:44)
[2016-10-14] MEDS: DOCUSATE SODIUM 100 MG CAPSULE PO SCH ×2 (08:46→20:25)
[2016-10-14] MEDS: MILK OF MAGNESIA 30 ML SUSP PO SCH (08:46)
[2016-10-14] MEDS: POLYETHYL.GLYCOL 3350 PACKET 17gm PO SCH (08:46)
[2016-10-14] MEDS: POTASSIUM CHLORIDE 20 MEQ TABLET PO SCH (08:46)
[2016-10-14] MEDS: DOXYCYCLINE 100 MG TABLET PO SCH (08:48)
[2016-10-14 08:51] VITALS: BP 123/77; PULSE 81; RESP 20; TEMP 98.2; O2SAT 91
--- NOTE | 2016-10-14 11:24 | PNPDOC ---
SOM PINEDO CHANGE HOUSE ATTENDANT 10/14/16 1119: Subjective Date DATE: 10/14/16 TIME: 11:16 Subjective Harper was resting in bed, but easily awakened. She developed a rash yesterday to her torso. She states it is very irritating and itchy. Keflex was discontinued and she was started on Benadryl, but this hasn't provided much relief. She denies any shortness of breath, tongue swelling, lip swelling, or difficulty swallowing. Otherwise, she has no acute complaints. Objective Vital Signs Vital signs Vital Signs Date Time Temp Pulse Resp B/P Pulse Ox O2 Delivery O2 Flow Rate FiO2 10/14/16 08:51 98.2 81 20 123/77 91 Room Air 10/13/16 08:17 2.00 Height (Feet): 5 Height (Inches): 1.00 Weight (Kilograms): 73.300 General General Appearance: Alert, Orientated x 3, Well Nourished, Well Developed, No Acute Distress Eyes (Brief) Eyes: FOUND: PERRL, NOT FOUND: scleral icterus ENMT (Brief) ENMT: FOUND: mucosa moist, NOT FOUND: pharnyx erythema Respiratory (Brief) Respiratory: FOUND: clear all noguera, equal bilaterally Cardiovascular (Brief) Cardiac: FOUND: regular rate, regular rhythm Abdomen (Brief) Abdominal: FOUND: BS normo active x4, soft, NOT FOUND: distended, tender Extremities (Brief) Extremity : Side: Bilateral Extremity: leg Extremity Finding: NOT FOUND: edema Musculoskeletal (Brief) Musculoskeletal: NOT FOUND: deformity, tenderness Integumentary (Brief) Integumentary: FOUND: dry, pink, rash (macular-papular rash to torso that is confluent in some areas. No urticaria visualized.), warm Psychiatric (Brief) Psychiatric: FOUND: alert, attentive, normal affect, oriented Laboratory Laboratory Laboratory Tests 10/14/16 05:49 Assessment & Plan Problems: (1) Drug-induced skin rash Status: Acute Assessment & Plan: Keflex (2) Hypernatremia Status: Acute (3) Self-care deficit for hygiene Status: Acute (4) UTI (urinary tract infection) Status: Resolved Assessment & Plan: Possible contamination MICROBIOLOGY URINE CULTURE. Final 10/11/16-741 Organism 1 MIXED JEREMIE COLONY COUNT >100,000 CFU/ml ORGANISM COMMENT: PROBABLE CONTAMINANT(S) ORGANISM COMMENT: NO SENSITIVITY PERFORMED URINE CULTURE. Preliminary (changed) 10/10/16-1049 Organism 1 GRAM POSITIVE ORGANISM COLONY COUNT >100,000 CFU/ml Organism 2 GRAM NEGATIVE VALENTINE COLONY COUNT 10,000 - 50,000 CFU/ml URINE CULTURE. 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 Today jenkins the last day of antibiotics, so we will discontinue doxycycline. In addition, urine culture grew out mixed gram-positive, raising suspicion for contamination. Continue Benadryl as needed, and start Pepcid for additional H2 block activity. There is no clinical evidence for anaphylactoid reaction. She has not been hypotensive. Hypernatremia is mild but persistent. Encourage oral intake. Later in the afternoon I received a call from the RN - her rash is causing more itching and is burning. Will give Prednisone 40 mg PO x 3 days. Hesitant to try hydroxyzine b/c of high side-effect profile. Code Status Do Not Resuscitate Hospital Course Summary Disclaimer The hospital course summary below is not to be considered part of the above Progress Note. Hospital Course Summary 10/12/16 gree with admission to the inpatient rehabilitation unit under care of Dr. Amaya She was requiring oxygen and admission. However has been able to wean down to room air. She will continue on Keflex antibiotic until 10/14/16 In light of recent mild Hypokalemia will continue with oral supplementation daily Consultation placed to Dr. Mendieta for psychiatric evaluation regarding depression and suicidal thoughts Podiatry consultation was placed for evaluation of patient's toenails. This is scheduled for Tuesday 10/[address] Beto Henderson twice a day for ongoing bowel motivation. Patient may have regular diet. SCDs to bilateral extremity for DVT prophylaxis. Overall, and ibuprofen as needed for pain control. Will recheck BMP on Saturday 10/14 for continued following of electrolytes and renal function 10/14/16 Drug rash: Keflex was discontinued and doxycycline was started in its place. Today jenkins the last day of antibiotics, so we will discontinue doxycycline. In addition, urine culture grew out mixed gram-positive, raising suspicion for contamination. Continue Benadryl as needed, and start Pepcid for additional H2 block activity. There is no clinical evidence for anaphylactoid reaction. She has not been hypotensive. Hypernatremia is mild but persistent. Encourage oral intake. Later in the afternoon I received a call from the RN - her rash is causing more itching and is burning. Will give Prednisone 40 mg PO x 3 days. Hesitant to try hydroxyzine b/c of high side-effect profile. COSMO PERRIN MD 10/14/162039: Assessment & Plan Assessment I have independently evaluated and examined this patient. I reviewed the chart, the patient's history, and the CHANGE HOUSE ATTENDANT's documented findings as above. We discussed and formulated the assessment and plan as above with additions as below: Mrs. Wood was seen in the dining area late afternoon. She complains of as itchy rash all over her chest and back. She denied difficulty breathing or dysuria. Exam: Erythematous macular rash present on medial surface of the upper arms and back most extensively, faint lesions present on the upper chest. No urticaria visualized Breath sounds clear, no wheezing, respirations nonlabored Cephalexin discontinued overnight; urine culture with mixed bacterial growth- likely contaminant. Alternate coverage not indicated. Benadryl has been ineffective and the patient has been started previously on prednisone and H2 jim. We'll additionally add Zyrtec 10 mg daily with initial dose this evening for symptomatic management. Low-dose doxepin or doxepin cream can be added if needed. SOM PINEDO APRN Oct 14, 2016 11:19 COSMO PERRIN MD Oct 14, 2016 20:40
[2016-10-14] MEDS: FAMOTIDINE 20 MG TABLET PO SCH ×2 (12:03→20:25)
[2016-10-14] MEDS ORDERED: PredniSONE 20 MG TABLET PO SCH (15:15)
[2016-10-14] MEDS: PredniSONE 20 MG TABLET PO SCH (15:21)
[2016-10-14 17:17] VITALS: BP 123/87; PULSE 81; RESP 18; TEMP 98.1; O2SAT 91
--- NOTE | 2016-10-14 19:09 | NUR ---
SHIFT SUMMARY PATIENT ALERT AND ORIENTED X 3. PATIENT COOPERATIVE. C/O ITCHING ON BACK. RASH SEEN ON BACK, ARMS, GROIN AREA. PREDNISONE STARTED. NO C/O OF PAIN. PATIENT UP WITH ONE ASSIST WITH THE WALKER. PATIENT YFN ALL MEALS. PATIENT INCONTINENT OF BLADDER. NO BMS ON DAY SHIFT. WILL CONT TO MONITOR.
[2016-10-14 19:27] VITALS: BP 130/64; PULSE 72; RESP 20; TEMP 98.9; O2SAT 91
[2016-10-14] MEDS: CETIRIZINE 10 MG TABLET PO SCH (21:58)
--- NOTE | 2016-10-15 00:23 | NUR ---
BEHAVIOR Patient was being assisted in getting ready for bed when she began to yell loudly at the MARKETING SALES CONSULTANT because she didn't want to have to go to the bathroom. This RN spoke with her about the environment, that MARKETING SALES CONSULTANT was here last night and was helpful to her. She yelled a bit more that she didn't care, she just wanted to stay in bed, and then calmed down. She apologized to staff and was calmer and pleasant after that.
[2016-10-15] MEDS: LEVOTHYROXINE 50 MCG TABLET PO SCH (06:49)
--- NOTE | 2016-10-15 06:54 | NUR ---
SHIFT SUMMARY Patient continues with allergic rash, but reports that the itching is quite a bit less. She declined offer of a benadryl at HS. Is incontinent of urine at night and does not seem to be aware of it. After having a moment of yelling and agitation at HS, she has been pleasant and cooperative with cares the rest of the shift. Took a.m. meds whole with water.
[2016-10-15 08:00] VITALS: BP 134/65; PULSE 69; RESP 12; TEMP 97.7; O2SAT 90
[2016-10-15 08:30] VITALS: PULSE 69
[2016-10-15] MEDS: MILK OF MAGNESIA 30 ML SUSP PO SCH (09:00)
[2016-10-15] MEDS: POLYETHYL.GLYCOL 3350 PACKET 17gm PO SCH (09:00)
[2016-10-15] MEDS: DOCUSATE SODIUM 100 MG CAPSULE PO SCH ×2 (09:00→20:13)
[2016-10-15] MEDS: ASPIRIN *EC* 81mg TABLET PO SCH (09:10)
[2016-10-15] MEDS: FAMOTIDINE 20 MG TABLET PO SCH ×2 (09:10→20:13)
[2016-10-15] MEDS: PredniSONE 20 MG TABLET PO SCH (09:10)
[2016-10-15] MEDS: AMLODIPINE 5 MG TABLET PO SCH (09:11)
[2016-10-15] MEDS: POTASSIUM CHLORIDE 20 MEQ TABLET PO SCH (09:11)
--- NOTE | 2016-10-15 16:34 | PNPDOC ---
Subjective Date DATE: 10/15/16 TIME: 16:29 Subjective Mrs. Wood reports that she feels much better today. Itching is controlled with medications although area of the rash has expanded on her arms and abdomen. She denied dyspnea or swelling of her lips. She denied difficulty chewing or swallowing and reports resting well last night. Nursing reports some agitation at bedtime last night but that it was not persistent. Objective Vital Signs Vital signs Vital Signs Date Time Temp Pulse Resp B/P Pulse Ox O2 Delivery O2 Flow Rate FiO2 10/15/16 08:30 69 10/15/16 08:00 97.7 12 134/65 90 Room Air 10/14/16 19:27 3.00 EXAM General-NAD, alert, pleasant HEENT-conjunctiva clear, no angioedema of the lips or tongue Lungs-respirations nonlabored, good airflow, no wheezing Cardiac-regular rate, S1-S2 Abd-soft, nontender Skin-diffuse erythematous macules most confluent on the back and chest, increased rash present on the arms and abdomen today compared to yesterday. 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 Final 10/11/16-0742 Organism 1 MIXED JEREMIE COLONY COUNT >100,000 CFU/ml ORGANISM COMMENT: PROBABLE CONTAMINANT(S) ORGANISM COMMENT: NO SENSITIVITY PERFORMED URINE CULTURE. Preliminary (changed) 10/10/16-1049 Organism 1 GRAM POSITIVE ORGANISM COLONY COUNT >100,000 CFU/ml Organism 2 GRAM NEGATIVE VALENTINE COLONY COUNT 10,000 - 50,000 CFU/ml URINE CULTURE. Preliminary (changed) 10/09/16-1508 CULTURE INITIATED - RESULTS PENDING Assessment Drug reaction to cephalexin-symptoms well controlled on current regimen. Continue same. Blood pressure stable, reassess electrolytes tomorrow. Continue PT/OT. Code Status Do Not Resuscitate Hospital Course Summary Disclaimer The hospital course summary below is not to be considered part of the above Progress Note. Hospital Course Summary 10/12/16 gree with admission to the inpatient rehabilitation unit under care of Dr. Amaya She was requiring oxygen and admission. However has been able to wean down to room air. She will continue on Keflex antibiotic until 10/14/16 In light of recent mild Hypokalemia will continue with oral supplementation daily Consultation placed to Dr. Mendieta for psychiatric evaluation regarding depression and suicidal thoughts Podiatry consultation was placed for evaluation of patient's toenails. This is scheduled for Tuesday 10/[address] Beto Henderson twice a day for ongoing bowel motivation. Patient may have regular diet. SCDs to bilateral extremity for DVT prophylaxis. Overall, and ibuprofen as needed for pain control. Will recheck BMP on Saturday 10/14 for continued following of electrolytes and renal function 10/14/16 Drug rash: Keflex was discontinued and doxycycline was started in its place. Today jenkins the last day of antibiotics, so we will discontinue doxycycline. In addition, urine culture grew out mixed gram-positive, raising suspicion for contamination. Continue Benadryl as needed, and start Pepcid for additional H2 block activity. There is no clinical evidence for anaphylactoid reaction. She has not been hypotensive. Hypernatremia is mild but persistent. Encourage oral intake. Later in the afternoon I received a call from the RN - her rash is causing more itching and is burning. Will give Prednisone 40 mg PO x 3 days. Hesitant to try hydroxyzine b/c of high side-effect profile. 10/15-Slade Drug reaction to cephalexin-symptoms well controlled on current regimen. Continue same. Blood pressure stable, reassess electrolytes tomorrow. Continue PT/OT. COSMO PERRIN MD Oct 15, 2016 16:32
[2016-10-15 16:50] VITALS: BP 131/72; PULSE 79; RESP 18; TEMP 97.8; O2SAT 93
--- NOTE | 2016-10-15 17:46 | PDIRUOPC ---
Overall Plan of Care Date DATE: 10/15/16 TIME: 17:43 Relevant Changes Relevant Changes: No I have reviewed the patient's information and concur with the finding and results of the pre-admission screen. Certification I certify the patient for rehabilitation. Patient Impairments Prior Medical Conditions: (1) Myopathy Status: Acute Additional Information: PT and OT will be consulted to manage and oversee strengthening of patient. (2) Sepsis Status: Acute Additional Information: Medical to continue to manage. (3) Self-care deficit for hygiene Status: Acute Additional Information: OT and PT to work with patient and oversee. Current Medical Conditions: (1) Myopathy Status: Acute Additional Information: PT and OT will be consulted to manage and oversee strengthening of patient. (2) Sepsis Status: Acute Additional Information: Medical to continue to manage. (3) Self-care deficit for hygiene Status: Acute Additional Information: OT and PT to work with patient and oversee. Medical Prognosis Fair IRF Tx That Should Address Dx: (1) Myopathy (2) Ambulatory dysfunction Dx Requiring Medical FU: (1) Sepsis (2) Hypernatremia Vital Signs Vital Signs Date Time Temp Pulse Resp B/P Pulse Ox O2 Delivery O2 Flow Rate FiO2 10/15/16 16:50 97.8 79 18 131/72 93 Room Air 10/14/16 19:27 3.00 Laboratory Laboratory Tests Test 10/14/16 05:49 Turbidity < 20 Sodium Level 146MEQ/L Potassium Level 4.1MEQ/L Chloride Level 110MEQ/L Carbon Dioxide Level 30MEQ/L Anion Gap 6MEQ/L Blood Urea Nitrogen 15.0MG/DL Creatinine 0.8MG/DL Glomerular Filtration Rate Calc 70 BUN/Creatinine Ratio 19RATIO Glucose Level 101MG/DL Calculated Osmolality 282MOSM/KG Calcium Level 9.0MG/DL Icterus Index < 2 Chemistry Specimen Hemolysis 24 Anticipated Interventions The patient requires inpatient IRF care for PT, OT, and/or ST for 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 ROM Deficit: Left Lower Extremity Strength Deficits: Left Lower Extremity, Left Upper Extremity FIM Scores Ambulation Distance: 128 Wheelchair Propulsion Distance: 16 Ambulation Ability: 5 Supervision/Setup Ambulation Assistance Needed: 1 Person Walk FIM Score Reason: CGA for safety and requires occasional verbal cues for safety Wheelchair Propulsion Ability: 1 Total Assistance Wheelchair Propulsion Ass[place]: 1 Person Stairs: 1 Total Assistance Stair Assistance Needed: 1 Person Number of Stairs: 3 Reason for Stair FIM: 3/[address] with FWW and 3/7 for 2 steps with bilat handrails; FIM 1 for number of steps Eating Ability-FIM: 5 Supervision/Setup Grooming Ability: 5 Supervision/Setup Grooming FIM Score Reason: pt refused Bathing Ability: 4 Minimal Assistance Upper Body Dressing Ability: 5 Supervision/Setup Lower Body Dressing Ability: 4 Minimal Assistance Lower Body Dressing Assistance: 1 Person Toileting Ability: 5 Supervision/Setup Toileting Assistance Needed: 1 Person Toileting FIM Score Reason: min assist for pulling pants up Bed Transfer Ability: 5 Supervision/Setup Bed Transfer Assistance Needed: 1 Person Bed FIM Score Reason: supervision for safety Chair Transfer Ability: 5 Supervision/Setup Chair Transfer Assistance Need: 1 Person Chair FIM Score Reason: CGA for safety sit>stand and 5/7 stand to sit Overall Wheelchair Transfer Ab: 4 Minimal Assistance Overall Toilet / Commode Trans: 5 Supervision/Setup Toilet / Commode Transfer Assi: 1 Person Toilet FIM Score Reason: CGA for safety Tub / Shower Transfer Ability: 3 Moderate Assistance Comprehension Ability: 6 Modified [place] Social Interaction: 6 Modified [place] Problem Solvin Modified [place] Expression Ability: 7+ Complete [place] Memory: 6 Modified [place] Current Functional Status Failed Alternative Therapy: Arrived from acute care Patient Requires * Patient has been determined to have significant functional limitations requiring at least two therapy disciplines. * Rehabilitation medical practitioner will provide admission approval, assessment and oversight and program coordination at least daily. * Intensive rehabilitative nursing services on site and available 24 hours a day. * The treatment plan will be developed within 24 hours of admission. * Interdisciplinary and goal oriented treatment by professional nursing, social director, and rehabilitation therapist. * Interdisciplinary team meeting weekly inclusive of ongoing comprehensive discharge planning. First team meeting by seven. Weekly meetings to follow. * Rehab Physician is the team meeting leader. * Pharmacy and diagnostic services will be available. * Ongoing comprehensive rehab program with at least 2 disciplines and greater than or equal to 3 hours a day, 5 days a week. Limitations require: ADL impairment Physical Therapy Minutes: 90 Occupational Therapy Minutes: 90 Therapy The patient is to receive therapy at least 5 days a week. PT Treatment Plan: Therapeutic Exercise, Gait Training, Functional Activities , Patient/Family Education, Balance/Proprioception Treatment Plan Frequency: five times per week Treatment Plan Duration: two weeks Plan of Care Comment: 6x/week x 1 week, then 5x/week x following weeks OT Treatment Plan: ADL's (basic care), Ther. Exercise for ADL's, UE Functional Training, Balance Training, Pt./Family Education, IADL's OT Treatment Plan Frequency: five times per week OT Treatment Plan Duration: three weeks Anticapted LOS/Outcomes Anticipated Functional Outcome Return to pre-sepsis strength and functioning. Anticipated DC Destination: Home Health Service Home Safety Plan The patient will be provided with the development of a Home Safety Plan for return to a home or home-like environment and to ensure safety post discharge. Complicating Conditions Complications since IRF admit: (1) Myopathy Status: Acute Comments: PT and OT will be consulted to manage and oversee strengthening of patient. (2) Sepsis Status: Acute Comments: Medical to continue to manage. (3) Self-care deficit for hygiene Status: Acute Comments: OT and PT to work with patient and oversee. Other Contributing Factors: Plan to Avoid Complications Barriers to Attaining Goals: weakness, balance, endurance, medical limitation Plan to Avoid Complications The patient cannot receive this care in a lesser intensive setting such as Fdc or Outpatient Therapy due to the patient requiring the following medical supervision for recovery of sepsis. The patient requires oversight by a rehabilitation physician to manage their rehabilitation treatment plan and the multidisciplinary approach to care that can only be provided in an IRF and requires a multidisciplinary approach to care , provided by professional PTs, OTs, STs, dieticians, RTs, rehabilitation nurses and is not available in lesser levels of care. The frequency and duration for therapy, as recommended by the professional Rehabilitation therapists, meet the patient's initial rehabilitation treatment plan needs and will be further evaluated on a weekly basis for progress and/or changes needed. JUSTICE ENGLAND MD Oct 15, 2016 17:46
--- NOTE | 2016-10-15 17:49 | PNPDOC ---
IRU Subjective Date DATE: 10/15/16 TIME: 17:46 Subjective Pt worked with PT and OT yesterday, had rest day today. Feeling better from drug rash eruption, but still itching. IRU Objective Vital Signs Vital signs Vital Signs Date Time Temp Pulse Resp B/P Pulse Ox O2 Delivery O2 Flow Rate FiO2 10/15/16 16:50 97.8 79 18 131/72 93 Room Air 10/14/16 19:27 3.00 Height (Feet): 5 Height (Inches): 1.00 Weight (Kilograms): 73.300 General General Appearance: Alert, Orientated x 2 Respiratory (Brief) Respiratory: FOUND: clear all noguera, equal bilaterally Cardiovascular (Brief) Cardiac: FOUND: regular rate, regular rhythm Capillary Refill: <2 sec Integumentary (Brief) Comments Continues with hives. Laboratory Laboratory Laboratory Tests Test 10/14/16 05:49 Turbidity < 20 Sodium Level 146MEQ/L Potassium Level 4.1MEQ/L Chloride Level 110MEQ/L Carbon Dioxide Level 30MEQ/L Anion Gap 6MEQ/L Blood Urea Nitrogen 15.0MG/DL Creatinine 0.8MG/DL Glomerular Filtration Rate Calc 70 BUN/Creatinine Ratio 19RATIO Glucose Level 101MG/DL Calculated Osmolality 282MOSM/KG Calcium Level 9.0MG/DL Icterus Index < 2 Chemistry Specimen Hemolysis 24 Assessment & Plan Problems: (1) Myopathy Status: Acute Assessment & Plan: PT and OT to continue working with pt, restart in am. (2) Sepsis Status: Acute Assessment & Plan: managed by medical. (3) Self-care deficit for hygiene Status: Acute Assessment & Plan: OT and PT working to increase strength and ability . Assessment Drug reaction to cephalexin-symptoms well controlled on current regimen. Continue same. Blood pressure stable, reassess electrolytes tomorrow. Continue PT/OT. Code Status Do Not Resuscitate Interventions to Obtain Goals PT Treatment Plan: Therapeutic Exercise, Gait Training, Functional Activities , Patient/Family Education, Balance/Proprioception OT Treatment Plan: ADL's (basic care), Ther. Exercise for ADL's, UE Functional Training, Balance Training, Pt./Family Education, IADL's Hospital Course Summary Disclaimer The hospital course summary below is not to be considered part of the above Progress Note. Hospital Course Summary 10/12/16 gree with admission to the inpatient rehabilitation unit under care of Dr. England She was requiring oxygen and admission. However has been able to wean down to room air. She will continue on Keflex antibiotic until 10/14/16 In light of recent mild Hypokalemia will continue with oral supplementation daily Consultation placed to Dr. Mendieta for psychiatric evaluation regarding depression and suicidal thoughts Podiatry consultation was placed for evaluation of patient's toenails. This is scheduled for Tuesday 10/[address] Beto Henderson twice a day for ongoing bowel motivation. Patient may have regular diet. SCDs to bilateral extremity for DVT prophylaxis. Overall, and ibuprofen as needed for pain control. Will recheck BMP on Saturday 10/14 for continued following of electrolytes and renal function 10/14/16 Drug rash: Keflex was discontinued and doxycycline was started in its place. Today jenkins the last day of antibiotics, so we will discontinue doxycycline. In addition, urine culture grew out mixed gram-positive, raising suspicion for contamination. Continue Benadryl as needed, and start Pepcid for additional H2 block activity. There is no clinical evidence for anaphylactoid reaction. She has not been hypotensive. Hypernatremia is mild but persistent. Encourage oral intake. Later in the afternoon I received a call from the RN - her rash is causing more itching and is burning. Will give Prednisone 40 mg PO x 3 days. Hesitant to try hydroxyzine b/c of high side-effect profile. 10/15-Slade Drug reaction to cephalexin-symptoms well controlled on current regimen. Continue same. Blood pressure stable, reassess electrolytes tomorrow. Continue PT/OT. JUSTICE ENGLAND MD Oct 15, 2016 17:49
--- NOTE | 2016-10-15 18:44 | NUR ---
Shift Summary Pt is resting on the side of the bed at this time. Ambulates well with assist of 1, FWW, and gait belt. Ate well for all meals, did not need assist with her tray, ambulated to the dining room. Has denied pain this shift. Pt has a rash over her body, medication started, does not think that the Benadryl works. Needed no assist with her top half with a bath or getting dressed, needed minimal assist with her bottom half with bathing and dressing. She was able to brush her own teeth. Has been continent this shift, able to manage her own clothing and cares. She has been pleasant and cooperative but does like to joke with staff. When in the bed or the chair the alarm is in use, call light is within reach.
[2016-10-15] MEDS: CETIRIZINE 10 MG TABLET PO SCH (20:14)
[2016-10-15 21:18] VITALS: BP 136/70; PULSE 70; RESP 18; TEMP 96.9; O2SAT 90
[2016-10-15 23:01] VITALS: PULSE 70
--- NOTE | 2016-10-16 00:38 | NUR ---
Chart Check 24 hour chart check completed
[2016-10-16 05:23] LABS: MEAN CORPUSCULAR HGB 31.3 UUG (26-34); MEAN CORPUSCULAR HGB CONC(MCHC 31.7 GM/DL (31-37); MEAN CORPUSCULAR VOLUME 98.6 UM3 (80-100); MEAN PLATELET VOLUME 9.5 UM3 (9.4-12.4); RED BLOOD COUNT 4.16 M/MM3 (4.00-5.20)
[2016-10-16 05:34] LABS: ANION GAP 10 MEQ/L (5-15); BUN/CREATININE RATIO 28 RATIO (6-26); CALCIUM 8.7 MG/DL (8.4-10.2); CHLORIDE 110 MEQ/L (98-107); CO2 - CARBON DIOXIDE 27 MEQ/L (22-30); CREATININE 0.8 MG/DL (0.7-1.2); GLOMERULAR FILTRATION RATE 70; GLUCOSE 98 MG/DL (65-110); SODIUM 147 MEQ/L (134-144)
[2016-10-16 05:42] LABS: WBC - WHITE BLOOD COUNT 27.9 T/MM3 (4.5-11.0)
[2016-10-16] MEDS: LEVOTHYROXINE 50 MCG TABLET PO SCH (06:07)
--- NOTE | 2016-10-16 06:27 | NUR ---
SUMMARY. PT HAS BEEN ALERT AND OX3. CALLS FOR BR ASSIST. USING FWW AND GB WITH 1 ASSIST. PT REPORTS SHE WAS RESTLESS PART OF THE NIGHT. PT ON ROOM AIR TONIGHT SAO2 90-91%. PT HAS USED HER I.S.
[2016-10-16 06:32] LABS: BAND NEUTROPHILS # 1.7 T/MM3; EOSINOPHILS # (MANUAL) 1.7 T/MM3 (0-0.5); LYMPHOCYTES # (MANUAL) 2.2 T/MM3 (1-4.8); MONOCYTES # (MANUAL) 0.6 T/MM3 (0-0.8); NEUTROPHILS #(MANUAL)-ABSOLUTE 21.8 T/MM3 (1.8-7.7); TOTAL CELLS COUNTED 100 %
[2016-10-16 08:00] VITALS: BP 129/69; PULSE 68; RESP 16; TEMP 98.1; O2SAT 94
[2016-10-16 08:20] VITALS: PULSE 68; RESP 16
[2016-10-16] MEDS: DOCUSATE SODIUM 100 MG CAPSULE PO SCH ×2 (08:36→21:05)
[2016-10-16] MEDS: MILK OF MAGNESIA 30 ML SUSP PO SCH (08:36)
[2016-10-16] MEDS: POLYETHYL.GLYCOL 3350 PACKET 17gm PO SCH (08:36)
[2016-10-16] MEDS: ASPIRIN *EC* 81mg TABLET PO SCH (08:37)
[2016-10-16] MEDS: FAMOTIDINE 20 MG TABLET PO SCH ×2 (08:37→21:06)
[2016-10-16] MEDS: PredniSONE 20 MG TABLET PO SCH (08:37)
[2016-10-16] MEDS: POTASSIUM CHLORIDE 20 MEQ TABLET PO SCH (08:38)
[2016-10-16] MEDS: AMLODIPINE 5 MG TABLET PO SCH (08:38)
[2016-10-16 16:00] VITALS: BP 140/83; PULSE 78; RESP 16; TEMP 97.9; O2SAT 93
--- NOTE | 2016-10-16 16:50 | NUR ---
Family Concern Pts son is concerned about pts state of mind, seems depressed, reported that she had told him that she would rather on occasions. Son also reports finding a journal recently that states many things of this nature. Worsening since her had passed. He was wondering if anyone had seen his mother for these items. Passed the information to Cristina Borges APRN regarding this.
--- NOTE | 2016-10-16 17:19 | NUR ---
CM SPOKE WITH PT. SHE STATED SHE WOULD LIKE TO RETURN HOME. SHE DID SAY THAT SHE IS AGREEABLE TO GOING ANYWHERE THAT SHE CAN AFFORD. SHE STATED SHE EARNS $1386.00 PER MONTH IN SOCIAL SECURITY. SHE LIVES ALONE IN [place], BUT SHE SAID SHE HAS A LOT OF FRIENDS FOR SUPPORT.
--- NOTE | 2016-10-16 19:19 | NUR ---
Shift Summary Pt is resting on the side of the bed at this time. Ambulates well with assist of 1, FWW, and gait belt. Ate well for all meals, did not need assist with her tray, ambulated to the dining room. Has denied pain this shift. Pt has a rash over her body, looks better today then previous day. Has been mostly continent this shift, able to manage her own clothing and cares; had one episode of incontinence which needed assist in changing her brief. When in the bed or the chair the alarm is in use, call light is within reach.
[2016-10-16] MEDS: CETIRIZINE 10 MG TABLET PO SCH (21:06)
--- NOTE | 2016-10-16 21:44 | PNPDOC ---
IRU Subjective Date DATE: 10/16/16 TIME: 21:42 Subjective Up and working with PT. Has been putting in effort to increase strength and showing FIM score improvement. IRU Objective Vital Signs Vital signs Vital Signs Date Time Temp Pulse Resp B/P Pulse Ox O2 Delivery O2 Flow Rate FiO2 10/16/16 16:00 97.9 78 16 140/83 93 Room Air 10/14/16 19:27 3.00 Height (Feet): 5 Height (Inches): 1.00 Weight (Kilograms): 73.300 General General Appearance: Alert, Orientated x 2 Respiratory (Brief) Respiratory: FOUND: clear all noguera, equal bilaterally Cardiovascular (Brief) Cardiac: FOUND: regular rate, regular rhythm Laboratory Laboratory Laboratory Tests Test 10/16/16 05:09 White Blood Count 27.9T/MM3 Red Blood Count 4.16M/MM3 Hemoglobin 13.0GM/DL Hematocrit 41.0% Mean Corpuscular Volume 98.6UM3 Mean Corpuscular Hemoglobin 31.3UUG Mean Corpuscular Hemoglobin Concent 31.7GM/DL RDW Standard Deviation 50.3FL Platelet Count 298T/MM3 Mean Platelet Volume 9.5UM3 Immature Granulocyte % (Auto) % Neutrophils (%) (Auto) % Lymphocytes (%) (Auto) % Monocytes (%) (Auto) % Eosinophils (%) (Auto) % Basophils (%) (Auto) % Absolute Immature Granulocyte (auto T/MM3 Absolute Neutrophils (auto) T/MM3 Absolute Lymphocytes (auto) T/MM3 Absolute Monocytes (auto) T/MM3 Absolute Eosinophils (auto) T/MM3 Absolute Basophils (auto) T/MM3 Neutrophils % (Manual) 78.0% Band Neutrophils % 6.0% Lymphocytes % (Manual) 8.0% Monocytes % (Manual) 2.0% Eosinophils % (Manual) 6.0% Absolute Neutrophils (Manual) 21.8T/MM3 Band Neutrophils # 1.7T/MM3 Lymphocytes # (Manual) 2.2T/MM3 Monocytes # (Manual) 0.6T/MM3 Eosinophils # (Manual) 1.7T/MM3 Red Cell Morphology Comment Normal Turbidity < 20 Sodium Level 147MEQ/L Potassium Level 4.0MEQ/L Chloride Level 110MEQ/L Carbon Dioxide Level 27MEQ/L Anion Gap 10MEQ/L Blood Urea Nitrogen 22.0MG/DL Creatinine 0.8MG/DL Glomerular Filtration Rate Calc 70 BUN/Creatinine Ratio 28RATIO Glucose Level 98MG/DL Calculated Osmolality 285MOSM/KG Calcium Level 8.7MG/DL Icterus Index < 2 Chemistry Specimen Hemolysis 28 Assessment & Plan Problems: (1) Myopathy Status: Acute Assessment & Plan: WOrkign with PT and OT, up with PT during visit today. Is showing progress, reeval on sunday. (2) Sepsis Status: Acute Assessment & Plan: followed and managed by medical (3) Self-care deficit for hygiene Status: Acute Assessment & Plan: Pt is working with OT and showing FIM improvement. Reeval sunday. Assessment Drug reaction to cephalexin-symptoms well controlled on current regimen. Continue same. Blood pressure stable, reassess electrolytes tomorrow. Continue PT/OT. Code Status Do Not Resuscitate Interventions to Obtain Goals PT Treatment Plan: Therapeutic Exercise, Gait Training, Functional Activities , Patient/Family Education, Balance/Proprioception OT Treatment Plan: ADL's (basic care), Ther. Exercise for ADL's, UE Functional Training, Balance Training, Pt./Family Education, IADL's Hospital Course Summary Disclaimer The hospital course summary below is not to be considered part of the above Progress Note. Hospital Course Summary 10/12/16 gree with admission to the inpatient rehabilitation unit under care of Dr. England She was requiring oxygen and admission. However has been able to wean down to room air. She will continue on Keflex antibiotic until 10/14/16 In light of recent mild Hypokalemia will continue with oral supplementation daily Consultation placed to Dr. Mendieta for psychiatric evaluation regarding depression and suicidal thoughts Podiatry consultation was placed for evaluation of patient's toenails. This is scheduled for Tuesday 10/[address] Beto Henderson twice a day for ongoing bowel motivation. Patient may have regular diet. SCDs to bilateral extremity for DVT prophylaxis. Overall, and ibuprofen as needed for pain control. Will recheck BMP on Saturday 10/14 for continued following of electrolytes and renal function 10/14/16 Drug rash: Keflex was discontinued and doxycycline was started in its place. Today jenkins the last day of antibiotics, so we will discontinue doxycycline. In addition, urine culture grew out mixed gram-positive, raising suspicion for contamination. Continue Benadryl as needed, and start Pepcid for additional H2 block activity. There is no clinical evidence for anaphylactoid reaction. She has not been hypotensive. Hypernatremia is mild but persistent. Encourage oral intake. Later in the afternoon I received a call from the RN - her rash is causing more itching and is burning. Will give Prednisone 40 mg PO x 3 days. Hesitant to try hydroxyzine b/c of high side-effect profile. 10/15-[place] Drug reaction to cephalexin-symptoms well controlled on current regimen. Continue same. Blood pressure stable, reassess electrolytes tomorrow. Continue PT/OT. JUSTICE ENGLAND MD Oct 16, 2016 21:44
[2016-10-16 23:03] VITALS: BP 115/61; PULSE 61; RESP 18; TEMP 97.7; O2SAT 93
--- NOTE | 2016-10-17 01:55 | NUR ---
Chart Check 24 hour chart check completed
[2016-10-17] MEDS: LEVOTHYROXINE 50 MCG TABLET PO SCH (06:25)
--- NOTE | 2016-10-17 06:31 | NUR ---
Summary Pt went on a walk before bed last night and spoke about how much she likes her son from [place]. Pt has slept well through the night. Up to the BR this morning to void. Pt ambulating well with FFW, gb and 1 assist. Pt in bed resting at this time.
[2016-10-17 07:29] VITALS: BP 146/78; PULSE 63; RESP 20; TEMP 97.5; O2SAT 92
[2016-10-17 08:00] VITALS: PULSE 63; RESP 20
--- NOTE | 2016-10-17 08:26 | PNPDOC ---
SOM PINEDO SAFETY PIN ASSEMBLING MACHINE OPERATOR 10/17/16 0820: Subjective Date DATE: 10/17/16 TIME: 08:17 Subjective I saw Harper as she was walking with her walker towards the dining area. She was in good spirits, and denied any complaints. Her rash is still present, but is no longer itching or causing any symptoms. She denies any problems breathing, abd discomfort, or GI complaints. She rested well last night and feels therapy is going well. Objective Vital Signs Vital signs Vital Signs Date Time Temp Pulse Resp B/P Pulse Ox O2 Delivery O2 Flow Rate FiO2 10/16/16 23:03 97.7 61 18 115/61 93 Room Air 10/14/16 19:27 3.00 Height (Feet): 5 Height (Inches): 1.00 Weight (Kilograms): 73.300 General General Appearance: Alert, Orientated x 3, Well Nourished, Well Developed, No Acute Distress Eyes (Brief) Eyes: FOUND: PERRL, NOT FOUND: scleral icterus ENMT (Brief) ENMT: FOUND: mucosa moist, NOT FOUND: pharnyx erythema Respiratory (Brief) Respiratory: FOUND: clear all noguera, equal bilaterally Cardiovascular (Brief) Cardiac: FOUND: regular rate, regular rhythm Abdomen (Brief) Abdominal: FOUND: BS normo active x4, NOT FOUND: distended Extremities (Brief) Extremity : Side: Bilateral Extremity Finding: NOT FOUND: edema Musculoskeletal (Brief) Musculoskeletal: NOT FOUND: deformity Integumentary (Brief) Integumentary: FOUND: dry, pink, rash (persists), warm Psychiatric (Brief) Psychiatric: FOUND: alert, attentive, normal affect, oriented Laboratory Laboratory Laboratory Tests 10/16/16 05:09 Laboratory Tests 10/16/16 05:09 Assessment & Plan Problems: (1) Drug-induced skin rash Status: Acute Assessment & Plan: Keflex (2) Hypernatremia Status: Acute (3) Self-care deficit for hygiene Status: Acute (4) Ambulatory dysfunction Status: Acute (5) HTN (hypertension) Status: Chronic (6) Hypothyroidism Status: Chronic (7) 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 Final 10/11/16-0742 Organism 1 MIXED JEREMIE COLONY COUNT >100,000 CFU/ml ORGANISM COMMENT: PROBABLE CONTAMINANT(S) ORGANISM COMMENT: NO SENSITIVITY PERFORMED URINE CULTURE. Preliminary (changed) 10/10/16-1049 Organism 1 GRAM POSITIVE ORGANISM COLONY COUNT >100,000 CFU/ml Organism 2 GRAM NEGATIVE VALENTINE COLONY COUNT 10,000 - 50,000 CFU/ml URINE CULTURE. Preliminary (changed) 10/09/16-1508 CULTURE INITIATED - RESULTS PENDING Plan/Intensity of Service Drug rash - persists but no longer symptomatic. Prednisone 3-day course completed; continues on Pepcid, which can likely be discontinued soon. Leukocytosis - likely steroid effect. Hypernatremia - mild, stable. Repeat CBC and BMP in am. Yesterday her nurse called inquiring about depression. Review of records indicated that a psych consult was placed on 10/12 for suicidal ideation, later cancelled. Initially I had re-ordered the consult, but after discussion with Pradip Resendez, cancelled it. He assessed the patient on the and screen was not positive for suicidal ideation, rather, morbid thoughts. She was not felt to be a danger and formal psychiatric consultation was not recommended. Code Status Do Not Resuscitate Hospital Course Summary Disclaimer The hospital course summary below is not to be considered part of the above Progress Note. Hospital Course Summary 10/12/16 gree with admission to the inpatient rehabilitation unit under care of Dr. Amaya She was requiring oxygen and admission. However has been able to wean down to room air. She will continue on Keflex antibiotic until 10/14/16 In light of recent mild Hypokalemia will continue with oral supplementation daily Consultation placed to Dr. Mendieta for psychiatric evaluation regarding depression and suicidal thoughts Podiatry consultation was placed for evaluation of patient's toenails. This is scheduled for Tuesday 10/[address] Beto Henderson twice a day for ongoing bowel motivation. Patient may have regular diet. SCDs to bilateral extremity for DVT prophylaxis. Overall, and ibuprofen as needed for pain control. Will recheck BMP on Saturday 10/14 for continued following of electrolytes and renal function 10/14/16 Drug rash: Keflex was discontinued and doxycycline was started in its place. Today jenkins the last day of antibiotics, so we will discontinue doxycycline. In addition, urine culture grew out mixed gram-positive, raising suspicion for contamination. Continue Benadryl as needed, and start Pepcid for additional H2 block activity. There is no clinical evidence for anaphylactoid reaction. She has not been hypotensive. Hypernatremia is mild but persistent. Encourage oral intake. Later in the afternoon I received a call from the RN - her rash is causing more itching and is burning. Will give Prednisone 40 mg PO x 3 days. Hesitant to try hydroxyzine b/c of high side-effect profile. 10/15-[place] Drug reaction to cephalexin-symptoms well controlled on current regimen. Continue same. Blood pressure stable, reassess electrolytes tomorrow. Continue PT/OT. 10/17/16 Drug rash - persists but no longer symptomatic. Prednisone 3-day course completed; continues on Pepcid, which can likely be discontinued soon. Leukocytosis - likely steroid effect. Hypernatremia - mild, stable. Repeat CBC and BMP in am. Yesterday her nurse called inquiring about depression. Review of records indicated that a psych consult was placed on 10/12 for suicidal ideation, later cancelled. Initially I had re-ordered the consult, but after discussion with Pradip Resendez, cancelled it. He assessed the patient on the and screen was not positive for suicidal ideation, rather, morbid thoughts. She was not felt to be a danger and formal psychiatric consultation was not recommended. COSMO PERRIN MD 10/17/16 1828: Assessment & Plan Assessment I have independently evaluated and examined this patient. I reviewed the chart, the patient's history, and the SAFETY PIN ASSEMBLING MACHINE OPERATOR's documented findings as above. We discussed and formulated the assessment and plan as above with additions as below: Harper was resting in the lunchroom late afternoon when reevaluated. She denied pruritus or difficulty breathing but indicated her skin is dry and that the rash is still present. Examination reveals significant fading of the macular rash relative to 2 days ago with faint erythematous macules present in the same distribution as previously described. There is some faint flaking present over the back. Skin moisturizer requested. Discussed with nursing and dope and fabric worker. SOM PINEDO SAFETY PIN ASSEMBLING MACHINE OPERATOR Oct 17, 2016 08:20 COSMO PERRIN MD Oct 17, 2016 18:28
[2016-10-17] MEDS: POTASSIUM CHLORIDE 20 MEQ TABLET PO SCH (08:46)
[2016-10-17] MEDS: DOCUSATE SODIUM 100 MG CAPSULE PO SCH ×2 (08:46→20:06)
[2016-10-17] MEDS: ASPIRIN *EC* 81mg TABLET PO SCH (08:46)
[2016-10-17] MEDS: POLYETHYL.GLYCOL 3350 PACKET 17gm PO SCH (08:46)
[2016-10-17] MEDS: FAMOTIDINE 20 MG TABLET PO SCH ×2 (08:47→20:06)
[2016-10-17] MEDS: AMLODIPINE 5 MG TABLET PO SCH (08:47)
[2016-10-17] MEDS: MILK OF MAGNESIA 30 ML SUSP PO SCH (09:00)
--- NOTE | 2016-10-17 09:00 | NUR ---
Rash Rash is still present throughout pt.'s torso. It was reported rash is improving. Pt. denies itching on assessment. STEVEN Whaley, here to see pt. this morning. Will continue to monitor.
--- NOTE | 2016-10-17 12:00 | NUR ---
Podiatry Dr. Pérez here to see pt. for toenail consult.
--- NOTE | 2016-10-17 14:35 | NUR ---
[facility] Communication Consult This CONFIGURATION ENGINEER met with the patient and administered the MAY Inventory Scale for Depression and the SBQ-R for suicidality. The patient was A/Ox4 and in a pleasant mood with congruent affect. The patient did not express any SI, NONSSI or HI nor did her scores on the SBQ-R Identify any risk of suicide. The patient did endorse morbid ideation during the interview. The patient identified a number of protective factors which included her spirituality, relationship with her son and grandchildren. The patient showed appropriate responses as the clinical interview explored losses (, house, pet, recently illness) in her life with good insight on how these subjects contribute to episodes of depression. The patient denies prolonged depressive SX and shows good use of positive self-talk, coping/calming skills and reliance upon friends and family when needed. The patient scored an 10 on the MAY Depression Inventory Scale which indicates a normal response to life stress. This CONFIGURATION ENGINEER explored past psychiatric tx history, which included treatment for an anxiety disorder, the patient believes this was over 20 years ago. This CONFIGURATION ENGINEER met with the patient, her son and his fiance. The patient's son stated his concerns which primarily surrounded his mothers anger and strained relationships in the family. The patient's son denied having any concerns surrounding his mothers safety. This therapist educated the family on healthy communication patterns and the harm triangulation. The patient and her son were able to role play positive communication strategies. The patient and her son asked if this CONFIGURATION ENGINEER could meet with her and the son she has a strained relationship with, who will be visiting tomorrow, this CONFIGURATION ENGINEER stated he was agreeable. The patient and her family denied any further questions or concerns. This CONFIGURATION ENGINEER will continue to follow and assist as needed to support safe discharge.
[2016-10-17 16:00] VITALS: BP 125/69; PULSE 59; RESP 18; TEMP 97.4; O2SAT 95
--- NOTE | 2016-10-17 16:13 | CONSF ---
DATE OF CONSULTATION 10/17/2016 Patient was seen and examined at bedside. Patient complains of painful toenails 1-10. PAST MEDICAL HISTORY, VITALS, MEDICATIONS See EXAMINATION GENERAL: Patient was examined at bed. Awake, alert, oriented. VASCULAR: Dorsalis pedis and posterior tibial pulses 0/4. CFT greater than 3. Discoloration. Absent hair. MUSCULOSKELETAL: Mild hammertoes noted bilaterally. DERM: Thick, painful, elongated, crumbly, yellow toenails 1-10 that are painful. IMPRESSION 1. PVD. 2. Onychomycosis. 3. Ingrown toenails. PLAN Debrided in length and thickness of the painful toenails. Thank you for the consult. LUANNE
--- NOTE | 2016-10-17 19:15 | NUR ---
Summary VS's stable. Pt. is on RA. She has denied pain, nausea and SOA. Pt. is supervision to minimal assist with transfers, toileting and cares. She transfers with FWW and gait belt. Pt. has ambulated to and from meals. She takes meds whole. Pt. is incontinent of urine. Pt. is currently resting in bed. Report has been past on to shift mgr.
[2016-10-17] MEDS: CETIRIZINE 10 MG TABLET PO SCH (20:06)
[2016-10-17 21:26] VITALS: BP 140/68; PULSE 59; RESP 20; TEMP 97.6; O2SAT 94
--- NOTE | 2016-10-18 01:59 | NUR ---
ASSUMED CARE AT 0030. AGREE WITH ASSESSMENT.
--- NOTE | 2016-10-18 03:13 | NUR ---
STATUS. PT HAS BEEN PLEASANT AND COOPERATIVE WITH STAFF. PT AWAKEN FOR TOILETING. PT INCONT OF BLADDER. ASSIST TO BR USING FWW AND GAITBELT.
--- NOTE | 2016-10-18 03:27 | NUR ---
Chart Check 24 hour chart check completed
--- NOTE | 2016-10-18 05:02 | NUR ---
LAB REFUSED Patient refused lab draw this a.m.
[2016-10-18] MEDS: LEVOTHYROXINE 50 MCG TABLET PO SCH (06:15)
[2016-10-18] MEDS: POTASSIUM CHLORIDE 20 MEQ TABLET PO SCH ×2 (08:00→08:31)
[2016-10-18 08:12] VITALS: BP 145/84; PULSE 74; RESP 18; TEMP 98.3; O2SAT 92
[2016-10-18 08:20] VITALS: PULSE 74; RESP 18
[2016-10-18] MEDS: DOCUSATE SODIUM 100 MG CAPSULE PO SCH ×2 (08:30→21:20)
[2016-10-18] MEDS: MILK OF MAGNESIA 30 ML SUSP PO SCH (08:30)
[2016-10-18] MEDS: POLYETHYL.GLYCOL 3350 PACKET 17gm PO SCH (08:30)
[2016-10-18] MEDS: ASPIRIN *EC* 81mg TABLET PO SCH (08:31)
[2016-10-18] MEDS: FAMOTIDINE 20 MG TABLET PO SCH ×2 (08:31→21:21)
[2016-10-18] MEDS: AMLODIPINE 5 MG TABLET PO SCH (08:31)
[2016-10-18 10:11] LABS: HCT - HEMATOCRIT 43.3 % (36-46); HGB - HEMOGLOBIN 13.7 GM/DL (12-16); MEAN CORPUSCULAR HGB CONC(MCHC 31.6 GM/DL (31-37); MEAN PLATELET VOLUME 9.4 UM3 (9.4-12.4); RED BLOOD COUNT 4.42 M/MM3 (4.00-5.20); WBC - WHITE BLOOD COUNT 16.5 T/MM3 (4.5-11.0)
[2016-10-18 10:22] LABS: ANION GAP 9 MEQ/L (5-15); BUN/CREATININE RATIO 24 RATIO (6-26); CALCIUM 8.7 MG/DL (8.4-10.2); CHLORIDE 110 MEQ/L (98-107); CO2 - CARBON DIOXIDE 27 MEQ/L (22-30); CREATININE 0.8 MG/DL (0.7-1.2); GLOMERULAR FILTRATION RATE 70; GLUCOSE 154 MG/DL (65-110); POTASSIUM 3.7 MEQ/L (3.6-5); SODIUM 146 MEQ/L (134-144)
[2016-10-18 10:32] LABS: BAND NEUTROPHILS # 0.2 T/MM3; NEUTROPHILS #(MANUAL)-ABSOLUTE 7.4 T/MM3 (1.8-7.7); TOTAL CELLS COUNTED 100 %
--- NOTE | 2016-10-18 14:16 | PDIRUTEAM ---
Multidisciplinary Team Meeting Nursing Hx Incontinence: Yes Bladder Goal: 7+ Complete [place] Y/N: No Bladder Continent or Incontine: Incontinent Incontinent Product Used: Pull-up Number of Times Incontinent of: 1 Cleaning Ability-Bladder: 3 Moderate Assistance Bladder Incontinence Managemen: 1 Total Assistance Bowel Goal: 7+ Complete [place] Colostomy Y/N: No Bowel Incontinent/Continent: Continent Bowel Number of Accidents: 0 Number of times Incontinent of: 0 Cleaning Ability-Bowel: 4 Minimal Assistance Bowel Incontinence Management: 1 Total Assistance Toileting Ability: 6 Modified [place] Vital Signs Vital Signs Date Time Temp Pulse Resp B/P Pulse Ox O2 Delivery O2 Flow Rate FiO2 10/18/16 08:20 74 18 10/18/16 08:12 98.3 145/84 92 Room Air 10/14/16 19:27 3.00 Current Medications Current Medications Medications (Trade) Dose Ordered Sig/Genesis Route PRN Reason Start Time Stop Time Status Last Admin Dose Admin Docusate Sodium (Colace) 100 mg BID PO 10/11/16 21:00 10/17/16 20:06 Aspirin (Ecotrin) 81 mg DAILY PO 10/12/16 09:00 10/18/16 08:31 Cephalexin HCl (Keflex) 500 mg TID PO 10/11/16 21:00 10/12/16 14:42 DC 10/12/16 08:27 Levothyroxine Sodium (Synthroid) 50 mcg ACB PO 10/12/16 06:30 10/18/16 06:15 Potassium Chloride (Kdur) 20 meq WB PO 10/12/16 08:00 10/17/16 08:46 Cephalexin HCl (Keflex) 500 mg TID PO 10/12/16 15:00 10/13/16 20:54 DC 10/13/16 15:37 Amlodipine Besylate (Norvasc) 5 mg DAILY PO 10/13/16 09:00 10/18/16 08:31 Polyethylene Glycol (Miralax) 17 g DAILY PO 10/13/16 17:00 10/17/16 08:46 Diphenhydramine HCl (Benadryl) 25 mg Q6H PRN PO ITCHING 10/13/16 21:00 10/14/16 12:49 Doxycycline Hyclate (Vibramycin) 100 mg BIDWM PO 10/13/16 21:00 10/14/16 11:24 DC 10/14/16 08:48 Famotidine (Pepcid) 20 mg BID PO 10/14/16 11:30 10/18/16 08:31 Prednisone (PredniSONE) 40 mg WB PO 10/14/16 15:15 10/16/16 12:00 DC 10/16/16 08:37 Cetirizine HCl (Zyrtec) 10 mg HS PO 10/14/16 22:00 10/17/16 20:06 Physical Therapy Bed Transfer Ability: 7+ Complete [place] Bed Transfer Assistance Needed: 1 Person Bed FIM Score Reason: supervision for safety Chair Transfer Ability: 5 Supervision/Setup Chair Transfer Assistance Need: 1 Person Chair FIM Score Reason: Poor safety awareness Overall Wheelchair Transfer Ab: 4 Minimal Assistance Wheelchair Transfer Assistance: 1 Person Overall Toilet / Commode Trans: 6 Modified [place] Ambulation Ability: 5 Supervision/Setup Ambulation Assistance Needed: 1 Person Walk FIM Score Reason: Poor safety awareness and L LE weakness. Ambulation Distance: 411 Comments FIMS 5+ except stairs. Not wanting safety education. Has frustration outbursts and anger yelling. Occupational Therapy Grooming Ability: 6 Modified [place] Grooming FIM Score Reason: pt refused Bathing Ability: 4 Minimal Assistance Upper Body Dressing Ability: 5 Supervision/Setup Lower Body Dressing Ability: 5 Supervision/Setup Lower Body Dressing Assistance: 1 Person Toileting Assistance Needed: 1 Person Toileting FIM Score Reason: min assist for pulling pants up Comments FIMS 5-6. Care Plan Condition at time of discharge: Fair IRU Discharge Disposition: Home Health Service Interventions/Goals Team in support of her trying home d/c. Medicare will not support skilled. Passed ROLF. Becomes unsafe when tired/fatigued with walking. Day 8 of . not receptive to home therapy at this time. D/C Sunday or sat 10/21. barriers to d/c: cognitive, safety, endurance. JUSTICE ENGLAND MD Oct 18, 2016 14:14
[2016-10-18 15:56] VITALS: BP 142/70; PULSE 64; RESP 14; TEMP 97.5; O2SAT 94
--- NOTE | 2016-10-18 17:22 | NUR ---
CM EARLIER IN THE DAY: PT'S SON, KENTON, VISITING AND HAD QUESTIONS. THIS WORKER SPOKE WITH HIM, WITH PT AND ANOTHER VISITOR, WITH PT'S PERMISSION. DISCUSSED PROBABLE DC PLAN OF HOME, AND THAT A DC DATE HAS NOT BEEN SET YET. DISCUSSED THE MEDICAID APPLICATION; HE IS IN THE PROCESS OF FILLING THIS OUT. DISCUSSED THAT PT WILL NEED TO SIGN IT, AND PT WAS AGREEABLE TO THIS. HE ASKED ABOUT THE FMLA STATEMENT; EXPLAINED THIS WORKER WILL FOLLOW UP WITH THE DOCTOR AT TODAY'S MEETING. THEY HAD NO FURTHER QUESTIONS FOR THIS WORKER.
[2016-10-18 19:40] VITALS: BP 137/68; PULSE 69; RESP 20; TEMP 97.6; O2SAT 95
--- NOTE | 2016-10-18 19:41 | NUR ---
Shift Summary Pt is resting on the side of the bed at this time. Ambulates well with assist of 1, FWW, and gait belt. Ate well for all meals, did not need assist with her tray, ambulated to the dining room. Has denied pain this shift. Pt has a rash over her body, continues to look better. Has been mostly continent this shift, able to manage her own clothing and cares; had one episode of incontinence which needed assist in changing her brief. She has been a bit more gruff this shift when getting frustrated with needing to talk with someone that was there and had then abruptly left. Needed reminded to use the call light when wanting to transfer. When in the bed or the chair the alarm is in use, call light is within reach.
[2016-10-18] MEDS: CETIRIZINE 10 MG TABLET PO SCH (21:21)
[2016-10-18 23:58] VITALS: PULSE 69; RESP 20
[2016-10-19] VITALS (7 sets, daily range): BP systolic 114–157; BP diastolic 58–71; PULSE 66–69; RESP 16–20; TEMP 97.6–98.6; O2SAT 92–95
--- NOTE | 2016-10-19 04:29 | NUR ---
CHART CHECK 24hr chart check completed.
--- NOTE | 2016-10-19 06:09 | NUR ---
SHIFT SUMMARY Harper has been cooperative with cares, getting up x 2 during night to use bathroom. Was continent the first time. Incontinent other time. She took HS meds with water without difficulty. Talks about looking forward to her discharge soon.
[2016-10-19] MEDS: LEVOTHYROXINE 50 MCG TABLET PO SCH (06:20)
[2016-10-19] MEDS: DOCUSATE SODIUM 100 MG CAPSULE PO SCH ×2 (08:28→20:52)
[2016-10-19] MEDS: POTASSIUM CHLORIDE 20 MEQ TABLET PO SCH (08:28)
[2016-10-19] MEDS: ASPIRIN *EC* 81mg TABLET PO SCH (08:29)
[2016-10-19] MEDS: FAMOTIDINE 20 MG TABLET PO SCH ×2 (08:29→22:45)
[2016-10-19] MEDS: AMLODIPINE 5 MG TABLET PO SCH (08:29)
[2016-10-19] MEDS: POLYETHYL.GLYCOL 3350 PACKET 17gm PO SCH (08:30)
[2016-10-19] MEDS: MILK OF MAGNESIA 30 ML SUSP PO SCH (08:33)
--- NOTE | 2016-10-19 13:18 | NUR ---
CM SON KENTON AND OTHER FAMILY MEMBER HERE, ASKED TO SPEAK WITH THIS WORKER. REVIEWED DC PLAN OF HOME ON SUNDAY. THEY DID NOT VOICE CONCERNS ABOUT THIS. EXPLAINED TEAM IS RECOMMENDING A WALKER BUT MEDICARE A DOES NOT COVER THIS. THIS WORKER ASSISTED THEM WITH [employer] ([employer], [employer], [employer]) AND THEY SAID THEY WILL BUY ONE FOR THE PT. ADDRESSED DOCTOR STATEMENT FOR KENTON'S FMLA; THIS WORKER EXPLAINED DOCTOR WILL SIGN FORM BUT FORM NEEDS TO BE PROVIDED. EXPLAINED THAT HR CAN FAX IT TO THIS WORKER. KENTON SAID HE WILL CONTACTING HIS BOSS ABOUT THIS.
--- NOTE | 2016-10-19 15:48 | NUR ---
CM RECIEVED FAX OF [facility]. SPOKE WITH PT, SHE IS AGREEABLE TO HAVING THIS COMPLETED. ALSO ADDRESSED ROTP; SHE IS AGREEABLE. EXPRESSED THE IMPORTANCE OF A FOLLOW UP APPOINTMENT WITH A DOCTOR, ADVISED THAT IT BE THROUGH [facility] [employer] DUE TO HER LACK OF OUTPT INSURANCE; SHE WAS AGREEABLE TO THIS AND ASSURED THIS WORKER THAT SHE WILL TAKE CARE OF HERSELF AND FOLLOW UP WITH THE DOCTOR.
--- NOTE | 2016-10-19 16:09 | PNPDOC ---
IRU Subjective Date DATE: 10/19/16 TIME: 16:07 Subjective Patient is working with physical therapy and occupational therapy. Does have some improvement in strength, working with stability issues with walker. IRU Objective Vital Signs Vital signs Vital Signs Date Time Temp Pulse Resp B/P Pulse Ox O2 Delivery O2 Flow Rate FiO2 10/19/16 08:02 68 20 10/19/16 08:01 98.6 157/66 93 Room Air Height (Feet): 5 Height (Inches): 1.00 Weight (Kilograms): 73.300 General General Appearance: Alert, Orientated x 2 Respiratory (Brief) Respiratory: FOUND: clear all noguera, equal bilaterally, NOT FOUND: rales, wheezes Cardiovascular (Brief) Cardiac: FOUND: regular rate, regular rhythm Capillary Refill: <2 sec Laboratory Laboratory Laboratory Tests Test 10/18/16 09:54 White Blood Count 16.5T/MM3 Red Blood Count 4.42M/MM3 Hemoglobin 13.7GM/DL Hematocrit 43.3% Mean Corpuscular Volume 98.0UM3 Mean Corpuscular Hemoglobin 31.0UUG Mean Corpuscular Hemoglobin Concent 31.6GM/DL RDW Standard Deviation 50.0FL Platelet Count 310T/MM3 Mean Platelet Volume 9.4UM3 Immature Granulocyte % (Auto) % Neutrophils (%) (Auto) % Lymphocytes (%) (Auto) % Monocytes (%) (Auto) % Eosinophils (%) (Auto) % Basophils (%) (Auto) % Absolute Immature Granulocyte (auto T/MM3 Absolute Neutrophils (auto) T/MM3 Absolute Lymphocytes (auto) T/MM3 Absolute Monocytes (auto) T/MM3 Absolute Eosinophils (auto) T/MM3 Absolute Basophils (auto) T/MM3 Neutrophils % (Manual) 45.0% Band Neutrophils % 1.0% Lymphocytes % (Manual) 30.0% Monocytes % (Manual) 6.0% Eosinophils % (Manual) 18.0% Absolute Neutrophils (Manual) 7.4T/MM3 Band Neutrophils # 0.2T/MM3 Lymphocytes # (Manual) 5.0T/MM3 Monocytes # (Manual) 1.0T/MM3 Eosinophils # (Manual) 3.0T/MM3 Red Cell Morphology Comment Normal Turbidity < 20 Sodium Level 146MEQ/L Potassium Level 3.7MEQ/L Chloride Level 110MEQ/L Carbon Dioxide Level 27MEQ/L Anion Gap 9MEQ/L Blood Urea Nitrogen 19.0MG/DL Creatinine 0.8MG/DL Glomerular Filtration Rate Calc 70 BUN/Creatinine Ratio 24RATIO Glucose Level 154MG/DL Calculated Osmolality 286MOSM/KG Calcium Level 8.7MG/DL Icterus Index < 2 Chemistry Specimen Hemolysis < 15 Assessment & Plan Problems: (1) Myopathy Status: Acute Assessment & Plan: Increasing strength with PT and OT assistance. Reevaluate for discharge tomorrow (2) Sepsis Status: Acute Assessment & Plan: Stable, improved with medical management. (3) Self-care deficit for hygiene Status: Acute Assessment & Plan: Patient is improving with OT support. Assessment I have independently evaluated and examined this patient. I reviewed the chart, the patient's history, and the FRONT MAKER's documented findings as above. We discussed and formulated the assessment and plan as above with additions as below: Harper was resting in the lunchroom late afternoon when reevaluated. She denied pruritus or difficulty breathing but indicated her skin is dry and that the rash is still present. Examination reveals significant fading of the macular rash relative to 2 days ago with faint erythematous macules present in the same distribution as previously described. There is some faint flaking present over the back. Skin moisturizer requested. Discussed with nursing and feed in worker. Code Status Do Not Resuscitate Interventions to Obtain Goals PT Treatment Plan: Therapeutic Exercise, Gait Training, Functional Activities , Patient/Family Education, Balance/Proprioception OT Treatment Plan: ADL's (basic care), Ther. Exercise for ADL's, UE Functional Training, Balance Training, Pt./Family Education, IADL's Hospital Course Summary Disclaimer The hospital course summary below is not to be considered part of the above Progress Note. Hospital Course Summary 10/12/16 gree with admission to the inpatient rehabilitation unit under care of Dr. England She was requiring oxygen and admission. However has been able to wean down to room air. She will continue on Keflex antibiotic until 10/14/16 In light of recent mild Hypokalemia will continue with oral supplementation daily Consultation placed to Dr. Mendieta for psychiatric evaluation regarding depression and suicidal thoughts Podiatry consultation was placed for evaluation of patient's toenails. This is scheduled for Tuesday 10/[address] Beto Henderson twice a day for ongoing bowel motivation. Patient may have regular diet. SCDs to bilateral extremity for DVT prophylaxis. Overall, and ibuprofen as needed for pain control. Will recheck BMP on Saturday 10/14 for continued following of electrolytes and renal function 10/14/16 Drug rash: Keflex was discontinued and doxycycline was started in its place. Today jenkins the last day of antibiotics, so we will discontinue doxycycline. In addition, urine culture grew out mixed gram-positive, raising suspicion for contamination. Continue Benadryl as needed, and start Pepcid for additional H2 block activity. There is no clinical evidence for anaphylactoid reaction. She has not been hypotensive. Hypernatremia is mild but persistent. Encourage oral intake. Later in the afternoon I received a call from the RN - her rash is causing more itching and is burning. Will give Prednisone 40 mg PO x 3 days. Hesitant to try hydroxyzine b/c of high side-effect profile. 10/15-Slade Drug reaction to cephalexin-symptoms well controlled on current regimen. Continue same. Blood pressure stable, reassess electrolytes tomorrow. Continue PT/OT. 10/17/16 Drug rash - persists but no longer symptomatic. Prednisone 3-day course completed; continues on Pepcid, which can likely be discontinued soon. Leukocytosis - likely steroid effect. Hypernatremia - mild, stable. Repeat CBC and BMP in am. Yesterday her nurse called inquiring about depression. Review of records indicated that a psych consult was placed on 10/12 for suicidal ideation, later cancelled. Initially I had re-ordered the consult, but after discussion with Pradip Resendez, cancelled it. He assessed the patient on the and screen was not positive for suicidal ideation, rather, morbid thoughts. She was not felt to be a danger and formal psychiatric consultation was not recommended. JUSTICE ENGLAND MD Oct 19, 2016 16:09
--- NOTE | 2016-10-19 19:20 | NUR ---
SUMMARY Pt has been pleasant, cooperative with cares, and compliant with medication. Pt denied pain throughout the shift today. Pt came out for all meals this shift. Pt was able to verbalize needs. Pt has been doing hygiene cares on her own with and only needs assistance for set up. Pt has been transferring with gait belt and uses her FWW for ambulation. Pt has a steady gait. Pt had a bowel movement today, she has been continent of bowel and urine this shift. Pt denies needs or concerns at the moment.
[2016-10-19] MEDS: CETIRIZINE 10 MG TABLET PO SCH (22:45)
--- NOTE | 2016-10-20 02:41 | NUR ---
RN attempted to take patient to the bathroom. Pt refused.
[2016-10-20] MEDS: LEVOTHYROXINE 50 MCG TABLET PO SCH (06:01)
[2016-10-20 08:09] VITALS: BP 139/71; PULSE 74; RESP 16; TEMP 97.9; O2SAT 91
[2016-10-20 08:10] VITALS: PULSE 74; RESP 16
[2016-10-20] MEDS: FAMOTIDINE 20 MG TABLET PO SCH (08:13)
[2016-10-20] MEDS: DOCUSATE SODIUM 100 MG CAPSULE PO SCH (08:13)
[2016-10-20] MEDS: ASPIRIN *EC* 81mg TABLET PO SCH (08:13)
[2016-10-20] MEDS: POTASSIUM CHLORIDE 20 MEQ TABLET PO SCH (08:13)
[2016-10-20] MEDS: AMLODIPINE 5 MG TABLET PO SCH (08:13)
[2016-10-20] MEDS: MILK OF MAGNESIA 30 ML SUSP PO SCH (08:14)
[2016-10-20] MEDS: POLYETHYL.GLYCOL 3350 PACKET 17gm PO SCH (08:14)
--- NOTE | 2016-10-20 09:41 | NUR ---
CM REVIEWED IM LETTER WITH PT; SHE SIGNED IT AND HAD NO QUESTIONS/CONCERNS ABOUT IT. SHE SAID SHE IS READY TO DC, AND SHE "CAN'T GET OUT OF HERE SOON ENOUGH." SON AND OTHER FAMILY MEMBER PRESENT IN ROOM. Addendum: 10/20/16 at 0942 by BRAYAN ADAMES Amended: Links added.
[2016-10-20] MEDS ORDERED: LEVO50TA4 PO (11:26)
[2016-10-20] MEDS ORDERED: AMLO5TAB2 PO (11:26)
[2016-10-20] MEDS ORDERED: CETI-269 PO (11:26)
[2016-10-20] MEDS ORDERED: POTA20TA10 PO (11:26)
[2016-10-20] MEDS ORDERED: POLY17PO18 PO (11:26)
[2016-10-20] MEDS ORDERED: DOCU-168 PO (11:26)
--- NOTE | 2016-10-20 11:48 | PD.DME ---
Patient Information Patient Information Patient Name Harper Wood Date of 40 Address [address] [facility] [address] [facility] [address] Height (Feet): 5 Height (Inches): 1.00 Weight (Kilograms): 73.300 Allergies: Coded Allergies: cephalexin (Verified Allergy, Unknown, RASH, 10/14/16) Estimated LAUREN: 99 Durable Medical Equipment Ambulatory Aids Ambulatory Aids: Walker-folding w/wheels Additonal Information Physician Information Bari England MD Address:[address] [place] [address] City: [place] State: [place] Zip: [address] BARI ENGLAND MD Oct 20, 2016 11:48
--- NOTE | 2016-10-20 12:21 | DSPDOC ---
General Date Date DATE: 10/20/16 TIME: 11:57 Attending Physician Bari Amaya MD Admitting Physician Bari Amaya MD Consulting Physician Juan Hernandez MD Admitting Diagnosis encephalopathy, weakness Discharge Diagnosis Disuse myopathy, encephalopathy, weakness History of Present Illness 76 yo female admitted to IRU with weakness and disuse myopathy due to UTI with Sepsis admisssion to hospital. She was at home and fell several times in a single day. Ultimately EMS was contacted and patient was brought into ED for evaluation and treatment. She was started on IV antibiotics and admitted to hospitalist. Currently UTI is stable and pt is appropriate for d/c but not appropriate to go home. She still requires medical supervision and will need physical therapy and occupational therapy to strenghten prior to leaving hospital. Hospital Course 10/12/16 gree with admission to the inpatient rehabilitation unit under care of Dr. Amaya She was requiring oxygen and admission. However has been able to wean down to room air. She will continue on Keflex antibiotic until 10/14/16 In light of recent mild Hypokalemia will continue with oral supplementation daily Consultation placed to Dr. Mendieta for psychiatric evaluation regarding depression and suicidal thoughts Podiatry consultation was placed for evaluation of patient's toenails. This is scheduled for Tuesday 10/[address] Beto Henderson twice a day for ongoing bowel motivation. Patient may have regular diet. SCDs to bilateral extremity for DVT prophylaxis. Overall, and ibuprofen as needed for pain control. Will recheck BMP on Saturday 10/14 for continued following of electrolytes and renal function 10/14/16 Drug rash: Keflex was discontinued and doxycycline was started in its place. Today jenkins the last day of antibiotics, so we will discontinue doxycycline. In addition, urine culture grew out mixed gram-positive, raising suspicion for contamination. Continue Benadryl as needed, and start Pepcid for additional H2 block activity. There is no clinical evidence for anaphylactoid reaction. She has not been hypotensive. Hypernatremia is mild but persistent. Encourage oral intake. Later in the afternoon I received a call from the RN - her rash is causing more itching and is burning. Will give Prednisone 40 mg PO x 3 days. Hesitant to try hydroxyzine b/c of high side-effect profile. 10/15-Slade Drug reaction to cephalexin-symptoms well controlled on current regimen. Continue same. Blood pressure stable, reassess electrolytes tomorrow. Continue PT/OT. 10/17/16 Drug rash - persists but no longer symptomatic. Prednisone 3-day course completed; continues on Pepcid, which can likely be discontinued soon. Leukocytosis - likely steroid effect. Hypernatremia - mild, stable. Repeat CBC and BMP in am. Yesterday her nurse called inquiring about depression. Review of records indicated that a psych consult was placed on 10/12 for suicidal ideation, later cancelled. Initially I had re-ordered the consult, but after discussion with Pradip Resendez, cancelled it. He assessed the patient on the and screen was not positive for suicidal ideation, rather, morbid thoughts. She was not felt to be a danger and formal psychiatric consultation was not recommended. Problems: (1) Sepsis Status: Acute Assessment & Plan: resolved (2) Left hemiparesis Status: Chronic Assessment & Plan: stable (3) Self-care deficit for hygiene Status: Acute Assessment & Plan: Improved with OT care and training. (4) Myopathy Status: Acute Assessment & Plan: Pt and OT worked with pt and have increased FIM scores to appropriate d/c level. Pt will return home. F/u with PCP. (5) Drug-induced skin rash Status: Acute Assessment & Plan: Resolved with medical supervision by hospitalist. Code Status Do Not Resuscitate Home Meds Active Scripts Polyethylene Glycol 3350 (Healthylax) 17 Gm Powd.pack, 17 G PO DAILY for 30 Days Prov:LEELA ANDRADE APRN 10/20/16 Docusate Sodium (Colace) 100 Mg Capsule, 100 MG PO BID for 30 Days, #60 CAP Prov:LEELA ANDRADE APRN 10/20/16 Amlodipine Besylate (Amlodipine Besylate) 5 Mg Tablet, 5 MG PO DAILY for 30 Days , #30 TAB Prov:LEELA ANDRADE APRN 10/20/16 Cetirizine HCl (Cetirizine HCl) 10 Mg Tablet, 10 MG PO HS, #30 TAB Prov:LEELA ANDRADE APRN 10/20/16 Levothyroxine Sodium (Synthroid) 50 Mcg Tablet, 50 MCG PO ACB for 30 Days, #30 TAB Prov:LEELA ANDRADE APRN 10/20/16 Potassium Chloride (Klor-Con M20) 20 Meq Tablet, 20 MEQ PO WB for 30 Days, #30 TAB Prov:LUPELEELA APRN 10/20/16 Aspirin *EC* (Aspirin EC) 81 Mg Tablet.dr, 81 MG PO DAILY for 30 Days, #30 TAB Prov:LEELA ANDRADE APRN 10/11/16 Reported Medications Ibuprofen (Ibuprofen) 200 Mg Tablet, 400 MG PO Q4H Y for PAIN 10/09/16 Discontinued Scripts Cephalexin (Keflex) 500 Mg Capsule, 500 MG PO TID for 3 Days, #9 CAP Prov:LEELA ANDRADE APRN 10/11/16 Face to Face Encounter I met with patient on the day of dismissal and discussed follow up appointments , medications, and safety plan. Discharge Disposition Pt discharged to home. Plan follow up with PCP. Use walker as needed for safety. Copies To 1: ANUPAMA HART CHARLES E MD Oct 20, 2016 12:00
--- NOTE | 2016-10-20 13:51 | PNPDOC ---
Subjective Date DATE: 10/20/16 TIME: 13:50 Subjective Harper is seen today during lunch. He is happy that she is being discharged home this afternoon. She denies having any pain or shortness of breath. She continues to have a faint rash to bilateral upper extremities from allergic reaction to Keflex however overall it has much improved. Objective Vital Signs Vital signs Vital Signs Date Time Temp Pulse Resp B/P Pulse Ox O2 Delivery O2 Flow Rate FiO2 10/20/16 08:10 74 16 10/20/16 08:09 97.9 139/71 91 Room Air Height (Feet): 5 Height (Inches): 1.00 Weight (Kilograms): 73.300 General General Appearance: Alert, Orientated x 3, Cooperative, No Acute Distress Eyes (Brief) Eyes: FOUND: EOMI ENMT (Brief) ENMT: FOUND: mucosa moist, normal dentition, NOT FOUND: pharnyx erythema Neck (Brief) Neck: FOUND: midline, NOT FOUND: adenopathy, carotid bruits, tracheal deviation Respiratory (Brief) Respiratory: FOUND: clear all noguera, equal bilaterally, NOT FOUND: wheezes Cardiovascular (Brief) Cardiac: FOUND: regular rate, regular rhythm, NOT FOUND: murmur, pedal edema Capillary Refill: <2 sec Abdomen (Brief) Abdominal: FOUND: BS normo active x4, soft, NOT FOUND: distended, tender Extremities (Brief) Extremity : Side: Bilateral Extremity: arm Comments allergic dermatitis -mild erythema Lymphatic (Brief) Lymphatic: NOT FOUND: adenopathy Musculoskeletal (Brief) Musculoskeletal: NOT FOUND: tenderness Integumentary (Brief) Integumentary: FOUND: dry, pink, warm Neurologic (Brief) Neurological: FOUND: cranial 2-12 intact Psychiatric (Brief) Psychiatric: FOUND: alert, attentive, normal affect, oriented Assessment & Plan Problems: (1) Sepsis Status: Acute Assessment & Plan: resolved (2) Left hemiparesis Status: Chronic Assessment & Plan: stable (3) Self-care deficit for hygiene Status: Acute Assessment & Plan: Improved with OT care and training. (4) Myopathy Status: Acute Assessment & Plan: Pt and OT worked with pt and have increased FIM scores to appropriate d/c level. Pt will return home. F/u with PCP. (5) Drug-induced skin rash Status: Acute Assessment & Plan: Resolved with medical supervision by hospitalist. Plan/Intensity of Service 10/20/16 Planning for discharge today. Discharged meds reviewed. Will continue several days of Pepcid given continued drug rash. May also use Benadryl as needed for itching. Discussed this with patient Discussed with discharge medications with patient including new medication started while in the hospital. Pt has establishing apt with Dr Tovar Patient planning on ROT at time of discharge Code Status Do Not Resuscitate Hospital Course Summary Disclaimer The hospital course summary below is not to be considered part of the above Progress Note. Hospital Course Summary 10/12/16 gree with admission to the inpatient rehabilitation unit under care of Dr. Amaya She was requiring oxygen and admission. However has been able to wean down to room air. She will continue on Keflex antibiotic until 10/14/16 In light of recent mild Hypokalemia will continue with oral supplementation daily Consultation placed to Dr. Mendieta for psychiatric evaluation regarding depression and suicidal thoughts Podiatry consultation was placed for evaluation of patient's toenails. This is scheduled for Tuesday 10/[address] Beto Henderson twice a day for ongoing bowel motivation. Patient may have regular diet. SCDs to bilateral extremity for DVT prophylaxis. Overall, and ibuprofen as needed for pain control. Will recheck BMP on Saturday 10/14 for continued following of electrolytes and renal function 10/14/16 Drug rash: Keflex was discontinued and doxycycline was started in its place. Today jenkins the last day of antibiotics, so we will discontinue doxycycline. In addition, urine culture grew out mixed gram-positive, raising suspicion for contamination. Continue Benadryl as needed, and start Pepcid for additional H2 block activity. There is no clinical evidence for anaphylactoid reaction. She has not been hypotensive. Hypernatremia is mild but persistent. Encourage oral intake. Later in the afternoon I received a call from the RN - her rash is causing more itching and is burning. Will give Prednisone 40 mg PO x 3 days. Hesitant to try hydroxyzine b/c of high side-effect profile. 10/15-Slade Drug reaction to cephalexin-symptoms well controlled on current regimen. Continue same. Blood pressure stable, reassess electrolytes tomorrow. Continue PT/OT. 10/17/16 Drug rash - persists but no longer symptomatic. Prednisone 3-day course completed; continues on Pepcid, which can likely be discontinued soon. Leukocytosis - likely steroid effect. Hypernatremia - mild, stable. Repeat CBC and BMP in am. Yesterday her nurse called inquiring about depression. Review of records indicated that a psych consult was placed on 10/12 for suicidal ideation, later cancelled. Initially I had re-ordered the consult, but after discussion with Pradip Resendez, cancelled it. He assessed the patient on the and screen was not positive for suicidal ideation, rather, morbid thoughts. She was not felt to be a danger and formal psychiatric consultation was not recommended. 10/20/16 Planning for discharge today. Discharged meds reviewed. Will continue several days of Pepcid given continued drug rash. May also use Benadryl as needed for itching. Discussed this with patient Discussed with discharge medications with patient including new medication started while in the hospital. Pt has establishing apt with Dr Tovar Patient planning on ROT at time of discharge LEELA ANDRADE APRN Oct 20, 2016 13:51
[2016-10-20] MEDS ORDERED: DIPH25CA84 PO (13:54)
[2016-10-20] MEDS ORDERED: FAMO20TA8 PO (13:54)
--- NOTE | 2016-10-20 16:38 | NUR ---
YANCY FAXED [facility] PAPERWORK TO [employer] AT FAX#[phone]
[2016-10-20 16:40] VITALS: BP 153/78; PULSE 68; RESP 16; O2SAT 98
--- NOTE | 2016-10-20 17:00 | NUR ---
DISCHARGE NOTE PT WAS IN STABLE CONDITION ON DISCHARGE. PT'S PERSONAL ITEMS WERE TAKEN TO CAR. THIS RN ACCOMPANIED PT TO SON'S PERSONAL VEHICLE. PT WAS WHEELED OUT TO CAR IN A WHEELCHAIR.
--- NOTE | 2016-10-20 17:14 | NUR ---
SHIFT SUMMARY PT HAS BEEN PLEASANT AND COOPERATIVE. HAS BEEN OUT TO DINING ROOM FOR MEALS. AMBULATES WITH FWW AND GAIT BELT. PT WORKED WITH THERAPY TODAY. PT WAS READY FOR DISCHARGE THIS AFTERNOON, WAS JUST WAITING ON SON TO ARRIVE TO TRANSPORT.
--- NOTE | 2016-10-23 08:10 | PDONTRACK ---
Right on Track Program Date of Discharge Oct 20, 2016 at 17:00 Scheduled Amlodipine Besylate (Amlodipine Besylate), 5 MG PO DAILY Aspirin *EC* (Aspirin EC), 81 MG PO DAILY Cetirizine HCl (Cetirizine HCl), 10 MG PO HS Docusate Sodium (Colace), 100 MG PO BID Famotidine (Famotidine), 20 MG PO BID Levothyroxine Sodium (Synthroid), 50 MCG PO ACB Polyethylene Glycol 3350 (Healthylax), 17 G PO DAILY Potassium Chloride (Klor-Con M20), 20 MEQ PO WB Scheduled PRN Diphenhydramine HCl (Benadryl), 25 MG PO Q6H PRN for ITCHING Ibuprofen (Ibuprofen), 400 MG PO Q4H PRN for PAIN, (Reported) Discontinued Medications Cephalexin (Keflex), 500 MG PO TID Date: Oct 21, 2016 Right on Track Program: 24 Hour Follow-Up Total LACE Score: 9 Recommendations for follow-up Attempted phone call x2 without successful answer Problems: (1) Drug-induced skin rash Status: Acute Assessment & Plan: Keflex (2) Hypernatremia Status: Acute (3) Self-care deficit for hygiene Status: Acute (4) Ambulatory dysfunction Status: Acute (5) HTN (hypertension) Status: Chronic (6) Hypothyroidism Status: Chronic (7) 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 Final 10/11/16-0742 Organism 1 MIXED JEREMIE COLONY COUNT >100,000 CFU/ml ORGANISM COMMENT: PROBABLE CONTAMINANT(S) ORGANISM COMMENT: NO SENSITIVITY PERFORMED URINE CULTURE. Preliminary (changed) 10/10/16-1049 Organism 1 GRAM POSITIVE ORGANISM COLONY COUNT >100,000 CFU/ml Organism 2 GRAM NEGATIVE VALENTINE COLONY COUNT 10,000 - 50,000 CFU/ml URINE CULTURE. Preliminary (changed) 10/09/16-1668 CULTURE INITIATED - RESULTS PENDING LEELA ANDRADE APRN Oct 23, 2016 08:10
--- NOTE | 2016-10-23 16:42 | NUR ---
CM VOICE MAIL FROM SON, BRAYAN WAGNER, . HE SAID HE HAD QUESTIONS. LEFT MESSAGE WITH HIM.
== END 2016-10-20 17:00 | disposition home or self-care (01) | DRG 91 ==
PROVIDERS: ADMIT Family Medicine; ATTEND Family Medicine
PROC: F07Z9FZ Gait Training/Functional Ambulation Treatment using Assistive, Adaptive, Supportive or Protective Equipment (ICD-10-PCS; principal; 2016-10-11)
PROC: F07M6ZZ Therapeutic Exercise Treatment of Musculoskeletal System - Whole Body (ICD-10-PCS; 2016-10-11)
PROC: F08Z4ZZ Home Management Treatment (ICD-10-PCS; 2016-10-11)
PROC: 0HBRXZZ Excision of Toe Nail, External Approach (ICD-10-PCS; 2016-10-17)
PROC: 0HBRXZZ Excision of Toe Nail, External Approach (ICD-10-PCS; 2016-10-17)
PROC: 0HBRXZZ Excision of Toe Nail, External Approach (ICD-10-PCS; 2016-10-17)
PROC: 0HBRXZZ Excision of Toe Nail, External Approach (ICD-10-PCS; 2016-10-17)
PROC: 0HBRXZZ Excision of Toe Nail, External Approach (ICD-10-PCS; 2016-10-17)
PROC: 0HBRXZZ Excision of Toe Nail, External Approach (ICD-10-PCS; 2016-10-17)
PROC: 0HBRXZZ Excision of Toe Nail, External Approach (ICD-10-PCS; 2016-10-17)
PROC: 0HBRXZZ Excision of Toe Nail, External Approach (ICD-10-PCS; 2016-10-17)
PROC: 0HBRXZZ Excision of Toe Nail, External Approach (ICD-10-PCS; 2016-10-17)
PROC: 0HBRXZZ Excision of Toe Nail, External Approach (ICD-10-PCS; 2016-10-17)
DX: G72.9 Myopathy, unspecified (principal); G93.40 Encephalopathy, unspecified; E87.0 Hyperosmolality and hypernatremia; G81.94 Hemiplegia, unspecified affecting left nondominant side; R53.1 Weakness; R26.89 Other abnormalities of gait and mobility; I10 Essential (primary) hypertension; E03.9 Hypothyroidism, unspecified; Z74.2 Need for assistance at home and no other household member able to render care; Z66 Do not resuscitate; Z79.82 Long term (current) use of aspirin; Z91.81 History of falling; Z98.2 Presence of cerebrospinal fluid drainage device; L27.0 Generalized skin eruption due to drugs and medicaments taken internally; T36.1X5A Adverse effect of cephalosporins and other beta-lactam antibiotics, initial encounter; Y92.230 Patient room in hospital as the place of occurrence of the external cause; F32.9 Major depressive disorder, single episode, unspecified; I73.9 Peripheral vascular disease, unspecified; B35.1 Tinea unguium; L60.0 Ingrowing nail
CPT/HCPCS: 36415; 80048; 85025